=== PATIENT | female | born 1940 | race Caucasian/White ===

== ENCOUNTER 2018-06-17 21:26 | Inpatient (IN) | payer OTHER ==
--- OUTSIDE RECORDS SUMMARY | 2018-06-17 21:28 | XMS REPORT | Clinical Summary ---
:1940 Author Organization [facility] Address [address] [place] [address] Phone Care Team Providers Name Role Phone Unavailable Primary Care Provider Unavailable Allergies Active Allergy Reactions Severity Noted Date Comments Codeine 05/29/2017 Can't recall reaction. Metronidazole Nausea And Vomiting 05/29/2017 headache Current Medications Prescription Sig. Disp. Refills Start Date End Date Status sucralfate (CARAFATE) 1 Take 1 g by mouth 4 Active gram tablet (four) times daily. aspirin 325 MG EC tablet Take 325 mg by Active mouth daily. promethazine (PHENERGAN) Take 12.5 mg by Active 12.5 MG tablet mouth every 6 (six) hours as needed for Nausea. ondansetron (ZOFRAN) 4 MG Take 4 mg by mouth Active tablet 2 (two) times daily as needed for Nausea. pravastatin (PRAVACHOL) Take 20 mg by mouth Active 20 MG tablet daily. levothyroxine (SYNTHROID, Take 50 mcg by Active LEVOTHROID) 50 MCG tablet mouth Every morning on an empty stomach. metoprolol (TOPROL-XL) 25 Take 25 mg by mouth Active MG 24 hr tablet daily. OMEPRAZOLE ORAL Take 1 tablet by Active mouth daily . Active Problems Not on file Social History Tobacco Use Types Packs/Day Years Used Date Former Smoker 0.25 9 Quit: 1973 Alcohol Use Drinks/Week oz/Week Comments No Sex Assigned at Date Recorded Not on file Last Filed Vital Signs Not on file Plan of Treatment Not on file Results Not on fileafter 06/16/2017
--- OUTSIDE RECORDS SUMMARY | 2018-06-17 21:28 | XMS REPORT ---
:1940 [facility] Address [address] [place] [address] [address] [place] [address] Care Team Providers Name Role Phone Unavailable Unavailable Unavailable Problems This patient has no known problems. Allergies, Adverse Reactions, Alerts This patient has no known allergies or adverse reactions. Medications This patient has no known medications. Results Test Description Test Time Test Comments Text Results Atomic Results Result Comments [place], ERCP 2017-07-05 14:41:00 Reason for exam:->recurrent Addendum BeginsREPORT ruq pain,isolated right STATUS:A PATIENT ID: biliary system [id number] Addendum Fluoroscopy time: 2.4 minutes Number of exposures performed: 8 Radiation dose (Ka,r): 17.4 mGy Signed: Joe Hidalgo Verified Date/Time: 07/05/2017 14:41:02 Reading Location: [facility] Diagnostic Imaging Reading Room [place] [id number] EndsAddendum BeginsREPORT STATUS:A Addendum Fluoroscopy time: 2.4 minutes Number of exposures performed: Eight Radiation dose (Ka,r): 17.4 mGy Signed: Joe Hidalgo Verified Date/Time: 07/05/2017 14:37:54 Reading Location: [facility] Diagnostic Imaging Reading Room [place] [address].Addendum EndsFINAL REPORT ERCP History provided: Recurrent right upper quadrant pain Comparison exam: 2010 Cholecystectomy clips are evident. Retrograde injection opacifies dilated common bile duct which is only partially opacified with contrast, and normal visualized intrahepatic biliary ducts. On the final image, a stent was placed extending from the upper common duct distally. Signed: Joe Hidalgo Verified Date/Time: 06/04/2017 17:18:22 Reading Location: [address] Radiology Reading Room
[2018-06-17] MEDS ORDERED: ONDANSETRON 4 MG/2 ML VIAL ONE (22:31)
[2018-06-17] MEDS ORDERED: MORPHINE 4 MG/ML SYR ONE (22:31)
[2018-06-17 22:55] LABS: Absolute Lymphocytes (CBC) 2.1 K/uL (0.7-4.9); Absolute Monocytes 0.7 K/uL (0.1-1.3); Absolute Neutrophil 12.8 K/uL (1.8-8.0); Basophils % 0.4 % (0-1.3); Eosinophils % 0.6 % (0-4.4); Hematocrit 36.3 % (36.0-45.0); MCH 30.2 pg (27.0-35.0); MCV 90.3 fL (80-100); MPV 7.5 fL (7.6-11.3); Monocytes % 4.7 % (3.3-12.3); RBC Red Blood Cell Count 4.02 M/uL (3.86-4.86)
[2018-06-17 23:14] LABS: CKMB Creatine Kinase MB 3.5 ng/mL (0.3-3.6)
[2018-06-17 23:27] LABS: Albumin 4.2 g/dL (3.4-5.0); Bilirubin Direct 0.3 mg/dL (0-0.2); Bilirubin Total 0.4 mg/dL (0.2-1.0); Potassium 3.4 mmol/L (3.5-5.1); Protein, Total 8.5 g/dL (6.4-8.2)
[2018-06-17 23:31] LABS: Urine Blood NEGATIVE (NEG); Urine Glucose NEGATIVE (NEG); Urine Protein NEGATIVE (NEG); Urine Specific Gravity 1.025 (1.005-1.030); Urine pH 5.5 (5.0-7.0)
[2018-06-17 23:37] LABS: Urine Bacteria <20 /HPF (<20); Urine Culture Reflex Order NOT NEEDED; Urine RBC NONE SEEN /HPF (NONE SEEN)
--- NOTE | 2018-06-18 00:37 | EDPHYS ---
Physician Documentation [facility] Name: Yoly Howard Age: 78 yrs Sex: Female : 1940 Arrival Date: 06/17/2018 Time: 21:27 Bed 17 Private MD: Alyssa Merritt C ED Physician Ras Howell HPI: 06/18 01:17 This 78 yrs old Female presents to ER via Ambulatory with complaints of tw4 Abdominal Pain, Shoulder Pain. 01:17 The patient presents with abdominal pain in the upper abdomen. Onset: The tw4 symptoms/episode began/occurred yesterday. The symptoms radiate to the right shoulder. Associated signs and symptoms: Pertinent positives: nausea and vomiting. The symptoms are described as dull. Modifying factors: The symptoms are alleviated by nothing, the symptoms are aggravated by nothing. Severity of pain: At its worst the pain was moderate in the emergency department the pain is unchanged. The patient has not experienced similar symptoms in the past. Historical: - Allergies: : Codeine; bs1 - Home Meds: 06/17 21:52 Norvasc Oral [Active]; bs1 - PMHx: 21:52 High Cholesterol; Hypertension; abdominal pain; nausea; bs1 - PSHx: 21:52 Tubal ligation; Cholecystectomy; bs1 - Immunization history:: Adult Immunizations up to date. - Social history:: Smoking status: Patient/guardian denies using tobacco. - Ebola Screening: : Patient negative for fever greater than or equal to 101.5 degrees Fahrenheit, and additional compatible Ebola Virus Disease symptoms Patient denies exposure to infectious person. ROS: 06/18 01:17 Constitutional: Negative for fever, chills, and weight loss, Cardiovascular: Negative tw4 for chest pain, palpitations, and edema, Respiratory: Negative for shortness of breath, cough, wheezing, and pleuritic chest pain. MS/Extremity: Negative for injury and deformity, Skin: Negative for injury, rash, and discoloration, Neuro: Negative for headache, weakness, numbness, tingling, and seizure. Abdomen/GI: Positive for abdominal pain, nausea, Negative for vomiting, diarrhea, constipation, abdominal cramps, abdominal distension, anorexia, dysphagia, hematemesis, black/tarry stool, rectal pain, bowel incontinence. Exam: 01:17 Constitutional: This is a well developed, well nourished patient who is awake, alert, tw4 and in no acute distress. Head/Face: Normocephalic, atraumatic. Chest/axilla: Normal chest wall appearance and motion. Nontender with no deformity. No lesions are appreciated. Cardiovascular: Regular rate and rhythm with a normal S1 and S2. No gallops, murmurs, or rubs. Normal PMI, no JVD. No pulse deficits. Respiratory: Lungs have equal breath sounds bilaterally, clear to auscultation and percussion. No rales, rhonchi or wheezes noted. No increased work of breathing, no retractions or nasal flaring. MS/ Extremity: Pulses equal, no cyanosis. Neurovascular intact. Full, normal range of motion. Neuro: Awake and alert, GCS 15, oriented to person, place, time, and situation. Cranial nerves II-XII grossly intact. Motor strength 5/5 in all extremities. Sensory grossly intact. Cerebellar exam normal. Normal gait. Psych: Awake, alert, with orientation to person, place and time. Behavior, mood, and affect are within normal limits. 01:17 Abdomen/GI: Inspection: abdomen appears normal, Bowel sounds: normal, Palpation: moderate abdominal tenderness, in the epigastric area and right upper quadrant. Vital Signs: 06/17 21:43 BP 175 / 70; Pulse 81; Resp 16; Temp 98.3(O); Pulse Ox 100% on R/A; Weight 48.08 kg; bs1 Height 5 ft. 3 in. (160.02 cm); Pain 10/10; 22:40 BP 159 / 80; Pulse 74; Resp 16 S; Pulse Ox 99% ; bs1 23:30 BP 152 / 61; Pulse 70; Resp 16 S; Pulse Ox 97% on R/A; bs1 06/18 00:15 BP 163 / 67; Pulse 69; Pulse Ox 97% on R/A; bs1 00:30 BP 153 / 68; Pulse 70; Resp 16 S; Pulse Ox 97% on R/A; bs1 01:30 BP 142 / 59; Pulse 73; Resp 16; Pulse Ox 99% on R/A; bs1 02:15 BP 126 / 56; Pulse 70; Resp 16; Temp 98; Pulse Ox 100% on R/A; Pain 5/10; bs1 06/17 21:43 Body Mass Index 18.78 (48.08 kg, 160.02 cm) bs1 MDM: 06/17 21:32 Patient medically screened. 06/18 01:17 Differential diagnosis: cholecystitis, Cholelithiasis, diverticulitis, Peptic Ulcer tw4 Disease, Perf. Duodenal Ulcer, Pyelonephritis, Ureterolithiasis, urinary tract infection. Data reviewed: vital signs, nurses notes. Data interpreted: Pulse oximetry: Interpretation: normal. Counseling: I had a detailed discussion with the patient and/or guardian regarding: the historical points, exam findings, and any diagnostic results supporting the discharge/admit diagnosis. Physician consultation: A Shaina SHANNON was called at 00:50, was contacted at 00:50, regarding admission, to the medical/surgical unit. patient's condition, need to evaluate the patient as soon as possible, and will see patient in inpatient room, would like medications started, broad spectrum antibiotics. Admission orders: after a detailed discussion of the patient's condition and case, the admit orders are written by me. 06/17 21:33 Order name: Amylase, Serum 06/17 21:33 Order name: Basic Metabolic Panel; Complete Time: 23:45 [facility] 06/17 23:46 Interpretation: Normal except: K 3.4; CRE 1.40; BUN 25; GLUC 173; GFR 36. 06/17 21:33 Order name: CBC with Diff; Complete Time: 23:45 [facility] 06/17 23:46 Interpretation: WBC 15.8; MCV 90.3; LYM% 13.0; JENNIFER% 81.3; MPV 7.5; NEUT A 12.8. 06/17 21:33 Order name: Creatinine for Radiology; Complete Time: 23:45 [facility] 06/17 23:47 Interpretation: Normal except: CRE 1.40; GFR 36. 06/17 21:33 Order name: Hepatic Function; Complete Time: 23:45 [facility] 06/17 23:47 Interpretation: Normal except: AST 336; ALT 130; ALK 158; BILID 0.3; TP 8.5; GLOB 4.3; tw4 A/G 1.0. 06/17 21:33 Order name: Lipase; Complete Time: 23:45 4 06/17 23:47 Interpretation: Within normal limits: LIP 220. 06/17 21:33 Order name: Urine Microscopic Only; Complete Time: 23:45 tw4 06/17 21:33 Order name: Amylase Level; Complete Time: 23:45 EDTX 06/17 23:47 Interpretation: Within normal limits: ONEYDA 108. tw4 06/17 22:22 Order name: Abdomen 1 View (KUB) XRAY tw 06/17 22:22 Order name: Ckmb; Complete Time: 23:45 tw 06/17 22:22 Order name: Creatine Phosphokinase; Complete Time: 23:45 tw 06/17 22:22 Order name: Troponin (emerg Dept Use Only); Complete Time: 23:45 tw 06/17 23:00 Order name: Urine Dipstick--Ancillary (enter results); Complete Time: 23:45 ct 06/17 23:47 Interpretation: Normal except: UESTR TRACE. tw 06/17 23:48 Order name: US Abdomen Complete tw 06/17 21:33 Order name: IV Saline Lock; Complete Time: 22:50 tw 06/17 21:33 Order name: Labs collected and sent; Complete Time: 22:50 tw 06/17 21:33 Order name: Urine Dipstick-Ancillary (obtain specimen); Complete Time: 22:50 [facility] 06/17 22:22 Order name: EKG; Complete Time: 22:23 [facility] 06/18 01:17 Order name: CONS Pharmacy Consult [facility] 06/18 01:17 Order name: NPO EDMS Administered Medications: 06/17 22:45 Drug: Zofran 4 mg Route: IVP; Site: right antecubital; bs1 06/18 02:27 Follow up: Response: No adverse reaction bs1 06/17 22:50 Drug: morphine 4 mg Route: IVP; Site: right antecubital; bs1 06/18 02:28 Follow up: Response: No adverse reaction bs1 01:19 Drug: LevaQUIN 500 mg Volume: 100 ml; Route: IVPB; Infused Over: 60 mins; Site: right bs1 antecubital; 02:27 Follow up: IV Status: Completed infusion bs1 01:28 Drug: morphine 2 mg Route: IVP; Site: right antecubital; bs1 02:27 Follow up: Response: No adverse reaction bs1 01:53 Drug: Flagyl 500 mg Volume: 100 ml; Route: IVPB; Rate: 200 ml/hr; Infused Over: 30 bs1 mins; Site: right antecubital; 02:27 Follow up: IV Status: Completed infusion bs1 Disposition: 06/18/18 00:36 Hospitalization ordered by Alyssa Merritt for Observation. Preliminary diagnosis are Nonspecific elevation of levels of transaminase and lactic acid dehydrogenase [LDH], Abdominal tenderness. - Bed requested for Telemetry/MedSurg (observation). - Status is Observation. bs1 - Condition is Stable. - Problem is new. - Symptoms are unchanged. UTI on Admission? No Signatures: Dispatcher [employer] EDJuana Loyd, RN RN cg Leyda Hernandez RN RN bs1 Ras Howell MD MD tw4 Corrections: (The following items were deleted from the chart) 01: 00:36 Hospitalization Ordered by A Shaina SHANNON for Observation. Preliminary diagnosis is cg Nonspecific elevation of levels of transaminase and lactic acid dehydrogenase [LDH]; Abdominal tenderness. Bed requested for Telemetry/MedSurg (observation). Status is Observation. Condition is Stable. Problem is new. Symptoms are unchanged. UTI on Admission? No. tw4 01:06/17 21:52 Allergies: No Known Allergies; bs1 bs1 06/18 02:28 01:21 06/18/2018 00:36 Hospitalization Ordered by A Shaina SHANNON for Observation. bs1 Preliminary diagnosis is Nonspecific elevation of levels of transaminase and lactic acid dehydrogenase [LDH]; Abdominal tenderness. Bed requested for Telemetry/MedSurg (observation). Status is Observation. Condition is Stable. Problem is new. Symptoms are unchanged. UTI on Admission? No. cg
--- NOTE | 2018-06-18 00:37 | ER ---
Nurse's Notes [facility] Name: Yoly Howard Age: 78 yrs Sex: Female : 1940 Arrival Date: 06/17/2018 Time: 21:27 Bed 17 Private MD: Alyssa Mreritt C Diagnosis: Nonspecific elevation of levels of transaminase and lactic acid dehydrogenase [LDH];Abdominal tenderness Presentation: 06/17 21:49 Presenting complaint: Patient states: "My stomach hurts, the pain goes into my back and bs1 shoulder, and I am very nauseated.". Transition of care: patient was not received from another setting of care. Onset of symptoms was June 17, 2018. Risk Assessment: Do you want to hurt yourself or someone else? Patient reports no desire to harm self or others. Initial Sepsis Screen: Does the patient meet any 2 criteria? No. Patient's initial sepsis screen is negative. Does the patient have a suspected source of infection? No. Patient's initial sepsis screen is negative. Care prior to arrival: None. 21:49 Method Of Arrival: Ambulatory bs1 21:49 Acuity: JACLYN 3 bs1 Historical: - Allergies: 06/18 01:22 Codeine; bs1 - Home Meds: 06/17 21:52 Norvasc Oral [Active]; bs1 - PMHx: 21:52 High Cholesterol; Hypertension; abdominal pain; nausea; bs1 - PSHx: 21:52 Tubal ligation; Cholecystectomy; bs1 - Immunization history:: Adult Immunizations up to date. - Social history:: Smoking status: Patient/guardian denies using tobacco. - Ebola Screening: : Patient negative for fever greater than or equal to 101.5 degrees Fahrenheit, and additional compatible Ebola Virus Disease symptoms Patient denies exposure to infectious person. Screenin/22 00:01 Abuse screen: Denies threats or abuse. Denies injuries from another. Nutritional bs1 screening: No deficits noted. Tuberculosis screening: No symptoms or risk factors identified. Fall Risk None identified. Assessment: 06/17 21:35 General: Appears in no apparent distress. uncomfortable, slender, Behavior is bs1 cooperative, anxious. Pain: Complains of pain in right/left upper quadrant. Neuro: Level of Consciousness is awake, alert, obeys commands, Oriented to person, place, time, situation, Appropriate for age. Cardiovascular: Denies chest pain, shortness of breath, Heart tones S1 S2 present Capillary refill < 3 seconds Patient's skin is warm and dry. 21:35 Respiratory: Airway is patent Trachea midline Respiratory effort is even, unlabored, bs1 Respiratory pattern is regular, symmetrical, Breath sounds are clear bilaterally. GI: Abdomen is flat, non-distended, Bowel sounds present X 4 quads. Abdomen is tender to palpation in right upper quadrant and left upper quadrant Reports upper abdominal pain. : No signs and/or symptoms were reported regarding the genitourinary system. EENT: No signs and/or symptoms were reported regarding the EENT system. Derm: Skin is intact. Musculoskeletal: Circulation, motion, and sensation intact. Capillary refill < 3 seconds, Range of motion: intact in all extremities. 22:50 Reassessment: Morphine/zofran given IV. bs1 23:30 Reassessment: Patient appears in no apparent distress at this time. Patient and/or bs1 family updated on plan of care and expected duration. Pain level reassessed. Patient is alert, oriented x 3, equal unlabored respirations, skin warm/dry/pink. Informed patient of pending lab results/POC. 06/18 01:20 Reassessment: patient c/o pain, informed Dr Howell, verbal order for morphine 2mg IV. bs1 01:21 Reassessment: Sania who identified as patient's daughter left her phone number as ao [phone] Cell. Work [phone]. Fortunato Melgoza patient's nice number [phone]. 02:22 Reassessment: Patient appears in no apparent distress at this time. Patient and/or bs1 family updated on plan of care and expected duration. Pain level reassessed. Patient is alert, oriented x 3, equal unlabored respirations, skin warm/dry/pink. Report called to 2nd floor. Patient states feeling better. Patient states symptoms have improved. Vital Signs: 06/17 21:43 BP 175 / 70; Pulse 81; Resp 16; Temp 98.3(O); Pulse Ox 100% on R/A; Weight 48.08 kg; bs1 Height 5 ft. 3 in. (160.02 cm); Pain 10/10; 22:40 BP 159 / 80; Pulse 74; Resp 16 S; Pulse Ox 99% ; bs1 23:30 BP 152 / 61; Pulse 70; Resp 16 S; Pulse Ox 97% on R/A; bs1 06/18 00:15 BP 163 / 67; Pulse 69; Pulse Ox 97% on R/A; bs1 00:30 BP 153 / 68; Pulse 70; Resp 16 S; Pulse Ox 97% on R/A; bs1 01:30 BP 142 / 59; Pulse 73; Resp 16; Pulse Ox 99% on R/A; bs1 02:15 BP 126 / 56; Pulse 70; Resp 16; Temp 98; Pulse Ox 100% on R/A; Pain 5/10; bs1 06/17 21:43 Body Mass Index 18.78 (48.08 kg, 160.02 cm) bs1 ED Course: 06/17 21:27 Patient arrived in ED. es 21:27 Alyssa Merritt MD is Private Physician. es 21:30 Inserted saline lock: 20 gauge in right antecubital area, using aseptic technique. bs1 Blood collected. 21:30 No provider procedures requiring assistance completed. bs1 21:32 Ras Howell MD is Attending Physician. tw4 21:35 Arm band placed on left wrist. bs1 21:48 Leyda Hernandez, PONCHO is Primary Nurse. bs1 21:50 Triage completed. bs1 22:00 Patient has correct armband on for positive identification. Bed in low position. Call bs1 light in reach. Side rails up X 1. Pulse ox on. NIBP on. Warm blanket given. 22:55 X-ray completed. Patient tolerated procedure well. mh1 22:55 Abdomen 1 View (KUB) XRAY In Process Unspecified. EDMS 06/18 00:35 Alyssa Merritt MD is Hospitalizing Provider. tw4 02:21 Patient admitted, IV remains in place. intact. bs1 Administered Medications: 06/17 22:45 Drug: Zofran 4 mg Route: IVP; Site: right antecubital; bs1 06/18 02:27 Follow up: Response: No adverse reaction bs1 06/17 22:50 Drug: morphine 4 mg Route: IVP; Site: right antecubital; bs1 06/18 02:28 Follow up: Response: No adverse reaction bs1 01:19 Drug: LevaQUIN 500 mg Volume: 100 ml; Route: IVPB; Infused Over: 60 mins; Site: right bs1 antecubital; 02:27 Follow up: IV Status: Completed infusion bs1 01:28 Drug: morphine 2 mg Route: IVP; Site: right antecubital; bs1 02:27 Follow up: Response: No adverse reaction bs1 01:53 Drug: Flagyl 500 mg Volume: 100 ml; Route: IVPB; Rate: 200 ml/hr; Infused Over: 30 bs1 mins; Site: right antecubital; 02:27 Follow up: IV Status: Completed infusion bs1 Outcome: 00:36 Decision to Hospitalize by Provider. tw4 02:21 Admitted to Med/surg accompanied by tech, via stretcher, room 230, with chart, Report bs1 called to GÉNESIS Campos 02:21 Condition: stable 02:21 Instructed on the need for admit, Demonstrated understanding of instructions. 02:28 Patient left the ED. bs1 Signatures: Dispatcher [employer] Nadja Broussard Martha 1 Gumaro Anderson, RN Leyda Espinal RN RN bs1 Ras Howell MD MD tw4 Corrections: (The following items were deleted from the chart) 00:41 00:31 BP 163 / 67; Pulse 69bpm; Pulse Ox 97% RA; bs1 bs1 01:22 08 21:52 Allergies: No Known Allergies; bs1 bs1
[2018-06-18] MEDS ORDERED: Levofloxacin500mg IV 0 MG/0 ML BAG IV ONE (01:18)
[2018-06-18] MEDS ORDERED: METRONIDAZOLE 500mg IVPB 0 MG/0 ML BAG IV ONE (01:18)
[2018-06-18] MEDS ORDERED: METRONIDAZOLE 500mg IVPB 500 MG/100 ML BAG IV ONE (01:22)
[2018-06-18] MEDS ORDERED: MORPHINE 4 MG/ML SYR ONE (01:22)
[2018-06-18] MEDS ORDERED: Levofloxacin500mg IV 500 MG/100 ML BAG IV ONE (01:22)
[2018-06-18 02:45] VITALS: BMI 18.8
--- NOTE | 2018-06-18 07:05 | RAD REPORT ---
EXAM DESCRIPTION: RAD - Abdomen 1 View (KUB) - 06/17/2018 10:58 pm CLINICAL HISTORY: Abdominal pain COMPARISON: None. FINDINGS: Bowel gas pattern is non-specific. No obstruction, free air or pneumatosis. No suspicious calcifications. Cholecystectomy clips are seen in the right upper quadrant. Small clip is also in th e left lower pelvis. Disc and bony degenerative changes are present. No acute bone finding. IMPRESSION: Negative KUB examination for acute finding.
--- NOTE | 2018-06-18 08:56 | RAD REPORT ---
EXAM DESCRIPTION: US - Abdomen Exam Complete - 06/18/2018 8:09 am CLINICAL HISTORY: Abdominal pain COMPARISON: CT study March 2017 FINDINGS: Gallbladder is absent. Common bile duct is 10-11 mm with no common duct stone identified. This is not outside of normal range for a post cholecystectomy patient. The liver and spleen show no suspicious findings. There does appear to be pneumobilia, not unexpected if the patient has had a sph incterotomy. The pancreas is normal. Pancreatic duct is upper normal No hydronephrosis or suspicious mass in either kidney. Aorta is normal is size. No ascites or bulky lymphadenopathy. IMPRESSION: Status post cholecystectomy. Prominence of the biliary tree within normal limits and sta ble. No other significant finding. No significant changes from March 2017.
[2018-06-18] MEDS: MORPHINE 2 MG/ML SYR IV PRN ×3 (09:42→20:18)
[2018-06-18] MEDS: METRONIDAZOLE 500mg IVPB 500 MG/100 ML BAG IV SCH ×2 (09:46→16:57)
[2018-06-18] MEDS: D5 0.9 NS 1,000 ML IV SCH ×2 (09:46→18:29)
[2018-06-18 10:05] LABS: Albumin 3.7 g/dL (3.4-5.0); Bilirubin Total 0.7 mg/dL (0.2-1.0); Magnesium 1.9 mg/dL (1.8-2.4); Potassium 3.8 mmol/L (3.5-5.1); Protein, Total 7.5 g/dL (6.4-8.2)
[2018-06-18 10:32] LABS: Absolute Lymphocytes (CBC) 0.7 K/uL (0.7-4.9); Absolute Monocytes 0.7 K/uL (0.1-1.3); Absolute Neutrophil 14.8 K/uL (1.8-8.0); Hematocrit 32.2 % (36.0-45.0); Lymphocytes % 4.2 % (15.3-44.8); MCH 30.6 pg (27.0-35.0); MPV 7.7 fL (7.6-11.3); Monocytes % 4.1 % (3.3-12.3); RBC Red Blood Cell Count 3.66 M/uL (3.86-4.86)
[2018-06-18 11:07] VITALS: O2SAT 97
[2018-06-18] MEDS ORDERED: CEFEPIME/SWI 2gm 2 GM/20 ML SYR IV ONE (11:30)
[2018-06-18 11:43] LABS: Blood Morphology Comment NOT SEEN (NOT SEEN); Platelet Estimate ADEQ; Urine White Blood Cell Casts OK
[2018-06-18] MEDS ORDERED: CEFEPIME 2 GM VIAL IV ONE (12:00)
--- NOTE | 2018-06-18 12:41 | RAD REPORT ---
EXAM DESCRIPTION: MRICholangiogram06/18/2018 11:48 am CLINICAL HISTORY: Abdominal pain COMPARISON: June 18, 2018 ultrasound TECHNIQUE: Magnetic resonance cholangiogram was performed. Source images were reviewed and reconstru cted at 360 degrees rotation. 3D MIP reconstruction was performed FINDINGS: The gallbladder has been removed. Mild prominence of the intra and extrahepatic biliary tree is seen. A filling defect to suggest a sto ne is not visualized. There does not appear to be a stricture. There probably is a air within the maria elena iary tree. The pancreatic duct appears unremarkable. Small pleural effusions are present IMPRESSION: Mild prominence of the biliary tree without visualization of a stone or stricture
[2018-06-18] MEDS: ONDANSETRON 4 MG/2 ML VIAL IV PRN (18:29)
[2018-06-19] MEDS: METRONIDAZOLE 500mg IVPB 500 MG/100 ML BAG IV SCH (00:32)
[2018-06-19] MEDS: MORPHINE 2 MG/ML SYR IV PRN ×2 (00:39→04:11)
[2018-06-19] MEDS: ONDANSETRON 4 MG/2 ML VIAL IV PRN ×2 (00:39→04:10)
[2018-06-19] MEDS ORDERED: Levofloxacin500mg IV 500 MG/100 ML BAG IV SCH ×2 (01:00→12:00)
[2018-06-19] MEDS: D5 0.9 NS 1,000 ML IV SCH ×2 (04:30→13:57)
--- NOTE | 2018-06-19 05:07 | HP ---
Date of Admission: 06/18/2018 Chief Complaint: Abdominal pain. History Of Present Illness: This is a 78-year-old pleasant female patient, who sees Dr. Tang in [place] on a regular basis and had endoscopic workup done by him as well as Dr. Plaza in [facility] on for recurrent cholangitis type of problem. So far no definite etiology was found, and the patient has this problem off and on, and a lot of time she is able to avoid hospital admission by taking ora l antibiotics that her GI physician prescribes, which is usually Cipro and Flagyl. Yesterday, she st arted to have sudden onset of right upper quadrant abdominal pain and this was so intense that she ca me into emergency room. diarrhea. After she was evaluated in the ER, she was admitted to the hospital. Allergies: TO CODEINE. Review of Systems: GI as mentioned above. All other systems reviewed and negative. Medications: List reviewed. Past Medical History: Significant for hypertension, ascending cholangitis, osteoarthritis. Past Surgical History: As mentioned above. Social History: Negative for smoking, alcohol use. Family History: Not pertinent. Physical Examination: Vital Signs: Last vital signs this morning; temperature 98.9, pulse 93, respiratory rate 16, blood p ressure 167/74, oxygen saturation 97%, height 5 feet 3 inches, weight 106 pounds. General: Awake, alert, oriented, not in distress. HEENT: Head atraumatic, normocephalic. Conjunctivae nonerythematous. Sclerae white. Mouth, no thr ush or edema noted. Ears/Nose, no mass, lesion, discharge noted. Neck: Supple. No JVD, lymph nodes, bruit, thyromegaly noted. Lungs: Bilateral good equal air entry. Clear to auscultation. No rhonchi. No rales. Heart: Normal heart sounds, no murmur or gallop. Abdomen: Presence of right upper quadrant tenderness. No rebound tenderness. No guarding. No rigi dity. No hepatosplenomegaly. No bruit. Bowel sounds normoactive. Extremities: No leg edema. No calf tenderness. Skin: No rash, ulcer, cellulitis. Lymphatics: No lymph node enlargement in neck, supraclavicular, infraclavicular region. Neuro: No focal neurological deficit. Chest: Unremarkable. External Genitalia: Deferred. Rectal: Deferred. Laboratory Data: Yesterday, white count 15.8, hemoglobin 12.1, platelets 268. This morning, white c ount 16.2, hemoglobin 11.2, platelets 244. Yesterday, sodium 137, potassium 3.4, chloride 104, bicar b 29, BUN 25, creatinine 1.40, glucose 173, total bilirubin 0.4, direct bilirubin 0.3, SGOT 336, SGPT 130, alkaline phosphatase 158, lipase 220. This morning, lipase 109, SGOT 640, SGPT 357, alkaline p hosphatase 142, total bilirubin 0.7, sodium 138, potassium 3.8, chloride 104, bicarb 26, BUN 20, crea tinine 1.10, glucose 139. Troponin less than 0.02. Urinalysis negative except trace leukocyte jose ase. Abdominal ultrasound done this morning shows status post cholecystectomy, prominence of biliary tree, no other significant finding. Impression: 1.Acute cholangitis. 2.Hypokalemia. 3.Anemia. 4.Hypertension. Plan: We will admit the patient to hospital for further evaluation and management of this problem. The patient is appropriate for inpatient and is expected to spend 2 midnights in hospital. We will g o ahead and keep her n.p.o., give her IV fluid, IV antibiotics, pain medications per order, SCD was o rdered for DVT prophylaxis, GI consultation was ordered from Dr. Oro, and home medications will be continued per order. I will see her tomorrow for followup. Details and plan of treatment discussed with her. We will repeat blood work tomorrow. ELI/MODL Voice ID: [id number]
[2018-06-19 06:16] LABS: Absolute Monocytes 0.8 K/uL (0.1-1.3); Absolute Neutrophil 11.5 K/uL (1.8-8.0); Basophils % 0.2 % (0-1.3); Eosinophils % 0.3 % (0-4.4); Hematocrit 32.5 % (36.0-45.0); Lymphocytes % 13.9 % (15.3-44.8); MCH 31.1 pg (27.0-35.0); MCV 88.3 fL (80-100); MPV 7.7 fL (7.6-11.3); Monocytes % 5.7 % (3.3-12.3); RBC Red Blood Cell Count 3.68 M/uL (3.86-4.86)
[2018-06-19 06:49] LABS: Albumin 3.7 g/dL (3.4-5.0); Bilirubin Total 0.6 mg/dL (0.2-1.0); Magnesium 2.2 mg/dL (1.8-2.4); Potassium 3.2 mmol/L (3.5-5.1); Protein, Total 7.8 g/dL (6.4-8.2)
[2018-06-19] MEDS: PANTOPRAZOLE 40MG TABLET PO SCH ×2 (09:00→09:17)
[2018-06-19] MEDS: AMLODIPINE 5 MG TAB PO SCH ×2 (09:00→09:16)
[2018-06-19] MEDS: LEVOTHYROXINE SOD 0.05 MG TABLET PO SCH ×2 (09:00→09:17)
[2018-06-19] MEDS ORDERED: CEFEPIME 2 GM VIAL IV SCH (09:00)
[2018-06-19] MEDS ORDERED: CEFEPIME/SWI 2gm 2 GM/20 ML SYR IV SCH (09:00)
[2018-06-19] MEDS: METOPROLOL XL 25 MG TAB PO SCH ×2 (09:00→09:17)
[2018-06-19] MEDS ORDERED: ENOXAPARIN 30 MG/0.3 ML SQ SCH (09:00)
[2018-06-19] MEDS: PROMETHAZINE 25 MG/ML VIAL IV PRN ×2 (09:15→18:23)
[2018-06-19] MEDS: KCL 20 MEQ/100 mL IVPB 20 MEQ/100 ML BAG IV SCH ×2 (09:16→11:24)
--- NOTE | 2018-06-19 09:35 | RAD REPORT ---
EXAM DESCRIPTION: RAD - Chest Single View - 06/19/2018 8:20 am CLINICAL HISTORY: nausea, epigastric pain Chest pain. COMPARISON: Abdomen 1 View (KUB) dated 06/17/2018; Chest Pa And Lat (2 Views) dated 04/23/2017; CHEST PA AND LAT 2 VIEW dated 01/16/2016; CHEST PA AND LAT 2 VIEW dated 07/23/2011 FINDINGS: Portable technique limits examination quality. The lungs are mildly emphysematous but clear. The heart is normal in size. No displaced fractures. IMPRESSION: No acute intrathoracic process suspected. Mild COPD.
[2018-06-19] MEDS ORDERED: NA CHLORIDE 0.9% 250 ML ONE (09:42)
[2018-06-19 10:04] LABS: Urine Appearance CLEAR; Urine Bilirubin NEGATIVE (NEG); Urine Blood NEGATIVE (NEG); Urine Color YELLOW; Urine Glucose NEGATIVE (NEG); Urine Microscopic Reflex NO UMIC; Urine Protein NEGATIVE (NEG); Urine Specific Gravity 1.015 (1.005-1.030); Urine Urobilinogen 0.2 mg/dL (0.2-1.0); Urine pH 5.5 (5.0-7.0)
[2018-06-19 17:26] VITALS: BP 165/74; TEMP 98.9
--- NOTE | 2018-06-20 06:28 | DS ---
Date of Discharge: 06/19/2018 Disposition: Discharged to go to [facility]. Physical Examination: HEENT: Unremarkable. Lungs: Clear to auscultation. Heart: Sounds normal. Abdomen: Soft. Bowel sounds normal. Presence of right upper quadrant tenderness. No rebound tende rness. Extremity: No leg edema. Laboratory Data: Upon admission, white count was 15.8, hemoglobin 12.1, and platelets 268. Today, w meredith count 14.3, hemoglobin 11.4, and platelets 254. Upon admission, sodium 137, potassium 3.4, chlo ride 104, bicarb 29, BUN 25, creatinine 1.40, and glucose 173. SGOT 336, SGPT 130, alkaline phosphat ase 158, and total bilirubin 0.4. Today, SGOT 474, SGPT 271. Yesterday, SGOT was 640, SGPT 357. To day, potassium was 3.2, BUN 14, creatinine 1.20. Lipase was 109 yesterday. Hospital Course: This is a 78-year-old female patient, who was admitted to the hospital with right u pper quadrant abdominal pain, nausea, and vomiting. Please see dictated H and P for more information . After the patient came into the emergency room, she was evaluated and admitted to the hospital. H er abdominal ultrasound was done yesterday, which was unremarkable for any acute changes. MRCP was d one, which was also negative for any acute changes, no evidence of any obstruction noted. The patien t has history of cholangitis from time to time and in the past, she had endoscopy workup including ER CP done by Dr. Plaza and the patient reported that her last ERCP was done by him sometime last year . After she was admitted to the hospital, she was initially kept n.p.o., IV fluid was given, IV pain medication and nausea medication were given, and IV antibiotics were started. Her condition did not improve as expected. This morning when I saw her, she reported that she feels little bit better com pared to the time of admission, but still was having right upper quadrant pain and nausea and reporte d that nausea medication, Zofran, was not helping. I was requesting Phenergan, which was ordered for her. Her antibiotics were changed from Levaquin and metronidazole to cefepime today. Dr. Preethi snell GI was consulted, who evaluated her today and recommended for us to transfer her to [place] under care of Dr. Plaza for higher level of care and once arrangements completed, the patient was transfe rred to [place] in stable condition via ground ambulance. Final Diagnoses: 1.Acute cholangitis. 2.Hypokalemia. 3.Hypertension. ELI/MODL Voice ID: [id number] Report ID: [id number]
[2018-06-21 03:55] LABS: HBsAG Nonreactive (Nonreactive); Hepatitis A IgM Antibody Nonreactive
--- NOTE | 2018-06-27 23:42 | CON ---
Date of Consultation: 06/19/2018 Reason For Consultation: Elevated liver chemistries, right lower quadrant pain with bloating. History Of Present Illness: The patient is a 78-year-old white female with history of biliary compli cations in past. The patient has been seen by Dr. Penn after seeing Dr. Goel. The patient has had recurrent cholangitis with at least [address] Goel due to bile duct stricture and biliar y stasis with cholangitis. Last ERCP was performed May 2017. The patient has had nausea, vomitin g, fevers, chills. No night sweats. Increase in liver chemistries with pain in the right upper quad rant, right lower quadrant, left upper quadrant, and increased bloating. She does report exposure to 2-year-old and 4-year-old, and her family thinks her grand kid after eating a pot pie that night and hours later abdominal pain began. The kids were at dinner where the chicken pot pie was served as w ell. It is unclear if kids were sick, though they possibly may have been. Of note, the patient has had 3 ERCPs over the past couple of years, last in May 2017 in [place], [place], seen by Dr. Trae udbon for this recurrent biliary stricture stasis and ascending cholangitis, appears by chart review and by talking to the patient and daughter. Daughter says that the patient is in the same presentation t hat she has currently when she has to have the biliary dilatations. Past Medical History: Significant for recurrent biliary strictures, ascending cholangitis that is re current, biliary stasis, hypertension, osteoarthritis. Social History: She is a . One daughter with hypothyroidism and polycystic ovary disease. She denies any tobacco or alcohol. Family History: Father of leukemia. Mother of strokes. Medications: See list. Allergies: CODEINE. Review of Systems: The patient has right lower quadrant and left lower quadrant pain with bloating, fevers, chills, naus ea, vomiting. She denies any melena, hematochezia, hematemesis, coffee-grounds emesis, hematuria, dy suria, polydipsia, diffuse chest pain, shortness of breath, seizures, or syncope, worsening paresthes ias, muscle aches, joint aches, backaches, depression, anxiety. Physical Examination: Vital Signs: The patient is 5 feet, 306 pounds. BMI of 19 kg/meter squared. Temperature 97.9 degre es Fahrenheit, pulse 80, respirations 18, blood pressure 150/67, O2 saturation 97%. General: Elderly female, lying in bed, in no acute distress. HEENT: Normocephalic, atraumatic. Anicteric. Pupils equal, round, and reactive to light. Extraocu lar movements are intact. Oropharynx is clear. Neck: Supple, no masses. Respirations: Clear to auscultation bilaterally. Cardiac: Regular rate and rhythm. No gallops or rubs. Abdomen: Positive bowel sounds. Soft. Nondistended. Some mild right upper quadrant and right lowe r quadrant tenderness. No peritoneal or Kiser sign. No rebound. Extremities: No clubbing, cyanosis, or edema. 2+ pulses. Neuro: Alert and oriented x3, grossly nonfocal, 5/5 motor sensation light touch. Laboratory Data: The patient's white count of 14.3, down from 16.2; hemoglobin of 11.4; hematocrit 3 2.5; MCV of 88; platelet count 254; polys of 80%; lymphocytes 14%; monocytes 6%. The patient has a s odium 141; potassium 3.2; chloride 107; bicarb 23; BUN of 14; creatinine of 1.2; glucose 131; calcium 9.0; magnesium 2.2; total bilirubin of 0.6; AST of 474, down from 640 yesterday; ALT of 271, down fr om 357 yesterday, alkaline phosphatase 150, up from 142 yesterday. CK-MB 3.5, troponin I of less corinna n 0.02. Total protein 7.8, albumin 3.7, globulin 4.1, lipase of 109, normal. UA, 1+ ketones. All e lse negative. Ultrasound of abdomen revealed cholecystectomy changes, prominence of biliary tree within normal limi ts and stable. Common bile duct about 10 to 11 mm with no stone identified. There does appear some . Pancreas and liver appeared normal. MRCP showed mild prominence of biliary tree without evidence of stone or strictures. Cholecystectomy changes noted. Impression: Probable recurrent biliary stasis from recurrent biliary strictures in this patient who has had at least 3 ERCPs in the past 2 years, last done in May of [address] Goel in [place], [place]. She also has exposure to a family eating event with a chicken pot pie, night before her symp toms began, with 2-year-old and 4-year-old present as well. She also has fevers, chills, nausea, vom iting. Most likely there is recurrent ascending cholangitis due to recurrent biliary strictures in t his patient, daughter and other family member, and there appears to be niece present today at the [facility] e presentation. She is given references when had biliary stricture that the need to be dilated. Recommendations: 1.Double coverage for gram-negative bacteria with 2 antibiotics. 2.The patient is [facility] Go[facility] for repeat ERCP and possible [employer]. There are recurrent biliary strictures and recurrent ascending cholangitis with elevated liver chemistries and sepsis with white count up to 14.2 now. 3.Continue IV fluids and IV antibiotics. 4.Diet. Clear liquids and full liquids and heart healthy once biliary disorder addressed. UYEN/MARY Voice ID: [id number] Report ID: [id number]
== END 2018-06-19 18:30 | disposition short-term general hospital (02) | DRG 446 ==
LOC: ER 21:26 → ERHOLD 06-18 01:39 → 2ND 06-18 02:16 → OBSVTOIN 06-19 11:49
PROVIDERS: ADMIT Internal Medicine; ATTEND Internal Medicine
DX: K83.0 Cholangitis (principal); E87.6 Hypokalemia; I10 Essential (primary) hypertension; D64.9 Anemia, unspecified
CPT/HCPCS: 36415; 71045; 74018; 74181; 76700; 80048; 80053; 80074; 80076; 81003; 81015; 82150; 82550; 82553; 83690; 83735; 84132; 84484; 85025; 87040; 96365; 96375; 99285; G0378; J0692; J1650; J2270; J2405; J2550

== ENCOUNTER 2018-12-29 23:33 | Emergency (ER) | payer OTHER ==
--- OUTSIDE RECORDS SUMMARY | 2018-12-29 23:37 | XMS REPORT | Clinical Summary ---
:1940 Author Organization [facility] Address [address] [place] [address] Care Team Providers Name Role Phone Jayro Merritt MD Primary Care Provider Allergies Active Allergy Reactions Severity Noted Date Comments Codeine 05/29/2017 Can't recall reaction. Metronidazole Nausea And Vomiting 05/29/2017 headache Levofloxacin Nausea And Vomiting, Other 06/23/2018 headache (See Comments) Medications Medication Sig Dispensed Refills Start Date End Date Status sucralfate Take 1 g by 0 Active (CARAFATE) 1 gram mouth 4 (four) tablet times daily. aspirin 325 MG EC Take 325 mg by 0 Active tablet mouth daily. ondansetron Take 4 mg by 0 Active (ZOFRAN) 4 MG mouth 2 (two) tablet times daily as needed for Nausea. levothyroxine Take 50 mcg by 0 Active (SYNTHROID, mouth Every LEVOTHROID) 50 MCG morning on an tablet empty stomach 10/29. metoprolol Take 25 mg by 0 Active (TOPROL-XL) 25 MG mouth daily. 24 hr tablet OMEPRAZOLE ORAL Take 1 tablet by 0 Active mouth daily . calcium Take 600 mg by 0 Active carbonate/vitamin mouth. D3 (CALTRATE WITH VITAMIN D3 ORAL) amLODIPine Take 5 mg by 0 Active (NORVASC) 5 MG mouth daily. tablet promethazine Take 1 tablet 30 tablet 0 06/21/2018 Active (PHENERGAN) 12.5 MG (12.5 mg total) tablet by mouth every 6 (six) hours as needed for Nausea. simvastatin (ZOCOR) Take 1 tablet 30 tablet 0 06/25/2018 Active 20 MG tablet (20 mg total) by mouth nightly Either you take pravastatin or simvastatin for cholesterol but not both. promethazine Take 12.5 mg by 0 Discontinued (PHENERGAN) 12.5 MG mouth every 6 8 tablet (six) hours as needed for Nausea. pravastatin Take 20 mg by 0 Discontinued (PRAVACHOL) 20 MG mouth daily. 8 tablet simvastatin (ZOCOR) Take 20 mg by 0 Discontinued 20 MG tablet mouth nightly. 8 levoFLOXacin Take 1 tablet 7 tablet 0 06/22/2018 Discontinued (LEVAQUIN) 500 MG (500 mg total) 8 tablet by mouth daily for 7 days. traMADol (ULTRAM) Take 1 tablet 30 tablet 0 06/21/2018 50 mg tablet (50 mg total) by 8 mouth every 6 (six) hours as needed for Pain for up to 10 days. Max Daily Amount: 200 mg pravastatin Take 1 tablet 30 tablet 0 06/25/2018 Discontinued (PRAVACHOL) 20 MG (20 mg total) by 8 tablet mouth daily Either you take pravastatin or simvastatin for cholesterol but not both. amoxicillin-clavula Take 1 tablet by 18 tablet 0 06/25/2018 jamel (AUGMENTIN) mouth 2 (two) 8 875-125 mg per times daily for tablet 9 days. 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/20/2018 RUQ abdominal pain 06/19/2018 Essential hypertension 06/19/2018 Abnormal liver enzymes 06/19/2018 Encounters Date Type Specialty Care Team Description 06/23/2018 - Emergency Oncology Nancy, Nausea and vomiting, intractability of vomiting not specified, unspecified vomiting type (Primary Dx) ; 06/25/2018 MD Damon Epigastric pain; Jay, Acute kidney injury (HCC); Heidy Milvia, Abnormal liver enzymes; Essential hypertension; Wilmer Riggs, Hypothyroidism, unspecified type 06/20/2018 Orders Only General Internal Medicine 06/19/2018 - Hospital Encounter General Internal Gadicheraugustine, Abnormal liver enzymes; 06/21/2018 Medicine Precious Essential hypertension; MD Laney RUQ abdominal pain; Shamsee, Dilated cbd, acquired Mookie-MD Emily Carr Allison P., MD after 12/28/2017 Social History Tobacco Use Types Packs/Day Years Used Date Former Smoker 0.25 9 Quit: 1973 Smokeless Tobacco: Never Used Alcohol Use Drinks/Week oz/Week Comments No Sex Assigned at Date Recorded Not on file Job Start Date Occupation Industry Not on file Not on file Not on file Travel History Travel Start Travel End No recent travel history available. Last Filed Vital Signs Vital Sign Reading Time Taken Blood Pressure 160/68 06/25/2018 11:00 AM CDT Pulse 70 06/25/2018 11:00 AM CDT Temperature 36.1 C (97 F) 06/25/2018 11:00 AM CDT Respiratory Rate 18 06/25/2018 11:00 AM CDT Oxygen Saturation 100% 06/25/2018 11:00 AM CDT Inhaled Oxygen Concentration - - Weight 45.5 kg (100 lb 6.4 oz) 06/23/2018 11:56 PM CDT Height 160 cm (5' 2.99") 06/23/2018 11:56 PM CDT Body Mass Index 17.79 06/23/2018 11:56 PM CDT Plan of Treatment Not on file Procedures Procedure Name Priority Date/Time Associated Comments Diagnosis CBC W/PLT COUNT & AUTO Routine 06/25/2018 4:42 Results for this DIFFERENTIAL AM CDT procedure are in the results section. HEPATIC FUNCTION PANEL Routine 06/25/2018 4:42 Results for this AM CDT procedure are in the results section. CBC W/PLT COUNT & AUTO Routine 06/25/2018 4:42 Results for this DIFFERENTIAL AM CDT procedure are in the results section. BASIC METABOLIC PANEL Routine 06/25/2018 4:42 Results for this (7) AM CDT procedure are in the results section. HEPATIC FUNCTION PANEL Routine 06/24/2018 10:07 Results for this AM CDT procedure are in the results section. RHYTHM STRIP - SCAN 06/24/2018 7:50 AM CDT CBC W/PLT COUNT & AUTO Routine 06/24/2018 4:25 Results for this DIFFERENTIAL AM CDT procedure are in the results section. CBC W/PLT COUNT & AUTO Routine 06/24/2018 4:25 Results for this DIFFERENTIAL AM CDT procedure are in the results section. BASIC METABOLIC PANEL Routine 06/24/2018 4:25 Results for this (7) AM CDT procedure are in the results section. ED ECG INTERPRETATION Routine 06/23/2018 9:57 Results for this PM CDT procedure are in the results section. POCT-LACTIC ACID, Routine 06/23/2018 9:37 Results for this VENOUS PM CDT procedure are in the results section. BLOOD CULTURE STAT 06/23/2018 9:34 Results for this PM CDT procedure are in the results section. BLOOD CULTURE STAT 06/23/2018 9:30 Results for this PM CDT procedure are in the results section. URINALYSIS W/ STAT 06/23/2018 9:22 Results for this MICROSCOPIC PM CDT procedure are in the results section. CBC W/PLT COUNT & AUTO STAT 06/23/2018 7:48 Results for this DIFFERENTIAL PM CDT procedure are in the results section. TROPONIN I STAT 06/23/2018 7:48 Results for this PM CDT procedure are in the results section. CBC W/PLT COUNT & AUTO STAT 06/23/2018 7:48 Results for this DIFFERENTIAL PM CDT procedure are in the results section. LIPASE STAT 06/23/2018 7:48 Results for this PM CDT procedure are in the results section. AMYLASE STAT 06/23/2018 7:48 Results for this PM CDT procedure are in the results section. HEPATIC FUNCTION PANEL STAT 06/23/2018 7:48 Results for this PM CDT procedure are in the results section. BASIC METABOLIC PANEL STAT 06/23/2018 7:48 Results for this (7) PM CDT procedure are in the results section. ECG 12-LEAD STAT 06/23/2018 7:43 Results for this PM CDT procedure are in the results section. CBC W/PLT COUNT & AUTO Routine 06/21/2018 5:20 Results for this DIFFERENTIAL AM CDT procedure are in the results section. HEPATIC FUNCTION PANEL Routine 06/21/2018 5:20 Results for this AM CDT procedure are in the results section. MAGNESIUM Routine 06/21/2018 5:20 Results for this AM CDT procedure are in the results section. PHOSPHORUS Routine 06/21/2018 5:20 Results for this AM CDT procedure are in the results section. BASIC METABOLIC PANEL Routine 06/21/2018 5:20 Results for this (7) AM CDT procedure are in the results section. CBC W/PLT COUNT & AUTO Routine 06/21/2018 5:20 Results for this DIFFERENTIAL AM CDT procedure are in the results section. TROPONIN I Routine 06/20/2018 12:09 Results for this PM CDT procedure are in the results section. ECG 12-LEAD Routine 06/20/2018 8:21 AM CDT Procedure Note - Interface, External Ris In - 06/20/2018 8:26 AM CDT Ventricular Rate 70 BPM Atrial Rate 70 BPM P-R Interval 174 ms QRS Duration 92 ms Q-T Interval 440 ms QTC Calculation(Bazett) 475 ms P Jasper 69 degrees R Jasper 41 degrees T Jasper 69 degrees Normal sinus rhythm Low voltage QRS Nonspecific T wave abnormality Prolonged QT Abnormal ECG When compared with ECG of 20-JUN-2018 08:20, Premature supraventricular complexes are no longer Present ECG 12-LEAD Routine 06/20/2018 8:21 AM CDT ECG 12-LEAD Routine 06/20/2018 8:20 AM CDT ECG 12-LEAD Routine 06/20/2018 8:20 AM CDT Procedure Note - Interface, External Ris In - 06/20/2018 8:26 AM CDT Ventricular Rate 70 BPM Atrial Rate 70 BPM P-R Interval 172 ms QRS Duration 94 ms Q-T Interval 430 ms QTC Calculation(Bazett) 464 ms P Jasper 72 degrees R Jasper 43 degrees T Jasper 60 degrees Sinus rhythm with Premature supraventricular complexes Low voltage QRS Nonspecific T wave abnormality Abnormal ECG When compared with ECG of 26-JUL-2011 10:51, Sinus rhythm has replaced Junctional rhythm Nonspecific T wave abnormality no longer evident in Inferior leads Nonspecific T wave abnormality has replaced inverted T waves in Anterior leads CBC W/PLT COUNT & AUTO Routine 06/20/2018 4:50 AM CDT Results for this DIFFERENTIAL procedure are in the results section. LIPASE Routine 06/20/2018 4:50 AM CDT AMYLASE Routine 06/20/2018 4:50 AM CDT C-REACTIVE PROTEIN Routine 06/20/2018 4:50 AM CDT TSH/FREE T4 IF INDICATED Routine 06/20/2018 4:50 AM CDT CREATINE KINASE (CK), TOTAL Routine 06/20/2018 4:50 AM CDT Results for this AND MB procedure are in the results section. TROPONIN I Routine 06/20/2018 4:50 AM CDT PT/APTT Routine 06/20/2018 4:50 AM CDT HEMOGLOBIN A1C Routine 06/20/2018 4:50 AM CDT HEPATIC FUNCTION PANEL Routine 06/20/2018 4:50 AM CDT LIPID PANEL Routine 06/20/2018 4:50 AM CDT MAGNESIUM Routine 06/20/2018 4:50 AM CDT PHOSPHORUS Routine 06/20/2018 4:50 AM CDT BASIC METABOLIC PANEL (7) Routine 06/20/2018 4:50 AM CDT CBC W/PLT COUNT & AUTO Routine 06/20/2018 4:50 AM CDT Results for this DIFFERENTIAL procedure are in the results section. after 12/28/2017 Results CBC with platelet count + automated diff (06/25/2018 4:42 AM CDT)Only the most recent of5 resultswithin the time period is included. WBC 8.0 3.5 - 10.5 K/L [facility] RBC 3.37 (L) 3.93 - 5.22 M/L [facility] Hemoglobin 10.1 (L) 11.2 - 15.7 GM/DL [facility] Hematocrit 30.4 (L) 34.1 - 44.9 % [facility] MCV 90.2 79.4 - 94.8 fL [facility] MCH 30.0 25.6 - 32.2 pg [facility] MCHC 33.2 32.2 - 35.5 GM/DL [facility] RDW 13.1 11.7 - 14.4 % [facility] Platelets 215 150 - 450 K/CU MM [facility] MPV 9.2 (L) 9.4 - 12.3 fL [facility] nRBC 0 0 - 0 /100 WBC [facility] % Neutros 43 % [facility] % Lymphs 48 % [facility] % Monos 7 % [facility] % Eos 2 % [facility] % Baso 0 % [facility] # Neutros 3.41 1.56 - 6.13 K/L [facility] # Lymphs 3.82 (H) 1.18 - 3.74 K/L [facility] # Monos 0.52 (H) 0.24 - 0.36 K/L [facility] # Eos 0.16 0.04 - 0.36 K/L [facility] # Baso 0.03 0.01 - 0.08 K/L [facility] Immature Granulocytes-Relative 1 0 - 1 % [facility] Specimen Blood - Arm, Left Performing Organization Address City/State/Zipcode Phone Number [facility] [address] [place] [address] CENTER Hepatic function panel (06/25/2018 4:42 AM CDT)Only the most recent of5 resultswithin the time period is included. Protein, Total 6.3 6.0 - 8.3 gm/dL [facility] Albumin 3.4 (L) 3.5 - 5.0 g/dL [facility] Total Bilirubin 0.5 0.2 - 1.2 mg/dL [facility] Bilirubin, Direct 0.3 0.1 - 0.5 mg/dL [facility] Alkaline Phosphatase 164 (H) 40 - 150 U/L [facility] AST 170 (H) 5 - 34 U/L [facility] ALT 74 (H) 6 - 55 U/L [facility] Specimen Blood - Arm, Left Performing Organization Address [facility]/Zipcode Phone Number [facility] [address] [place] [address] [place] Basic metabolic panel (06/25/2018 4:42 AM CDT)Only the most recent of5 resultswithin the time period is included. Sodium 141 136 - 145 meq/L [facility] Potassium 3.9 3.5 - 5.1 meq/L [facility] Chloride 110 (H) 98 - 107 meq/L [facility] CO2 25 22 - 29 meq/L [facility] BUN 6 (L) 7 - 21 mg/dL [facility] Creatinine 0.84 0.57 - 1.25 mg/dL [facility] Glucose 122 (H) 70 - 105 mg/dL [facility] Calcium 8.8 8.4 - 10.2 mg/dL [facility] EGFR 65Comment: ESTIMATED GFR IS mL/min/1.73 sq m [facility] NOT ACCURATE CREATININE [facility] CLEARANCE IN PREDICTING GLOMERULAR FILTRATION RATE. ESTIMATED GFR IS NOT APPLICABLE FOR DIALYSIS PATIENTS. Specimen Blood - Arm, Left Performing Organization Address City/[facility]/Zipcode Phone Number [facility] [address] [place] [address] [place] RHYTHM STRIP - SCAN (06/24/2018 7:50 AM CDT) Narrative Performed At ED ECG Interpretation (06/23/2018 9:57 PM CDT) Narrative Performed At Damon Cruz MD 06/23/20189:57 PM Date/Time: 06/23/2018 9:50 PM Performed by: DAMON CRUZ Authorized by: DAMON CRUZ The ECG was interpreted by ED physician. Rate is normal rate. Heart rate is 80 BPM. Conduction: conduction normal. ST segments normal. T waves normal: Diffuse Twave flattening. Clinical Impression: non-specific ECG POC-Lactic Acid, Venous (06/23/2018 9:37 PM CDT) POC-Lactic Acid, Venous 1.3Comment: TESTED AT 0.9 - 1.7 mmol/L [facility] [address] [place] [id number] Specimen Blood Performing Organization Address [facility] [place] [address] CENTER Blood culture (06/23/2018 9:34 PM CDT)Only the most recent of2 resultswithin the time period is included. Result No growth in 5 days [facility] Specimen Blood - Line, Venous Performing Organization Address [facility] Phone Number [address] [address] [place] Urinalysis w/ Microscopic (06/23/2018 9:22 PM CDT) Color, UA Yellow [facility] Clarity, UA Hazy [facility] Specific [place], UA 1.015 1.001 - 1.035 [facility] pH, UA 5.5 5.0 - 8.0 [facility] Protein, UA 30 mg/dL (A) Negative [facility] Glucose, UA Negative Negative [facility] Ketones, UA 10 mg/dL (A) Negative [facility] Bilirubin, UA Negative Negative [facility] Blood, UA Negative Negative [facility] Nitrite, UA Negative Negative [facility] Leukocytes, UA Moderate (A) Negative [facility] Urobilinogen, UA 0.2 0.2 - 1.0 mg/dL [facility] RBC, UA 17 /HPF [facility] WBC, UA 7 /HPF [facility] Mucus Few [facility] Squam Epithel, UA 4 /HPF [facility] Hyaline Casts, UA 17 /LPF [facility] Specimen Source Urine, Clean Catch [facility] Specimen Urine - Urine, Clean Catch Performing Organization Address City/[facility] Centercode Phone Number [address] [address] C[place] Troponin I (not available at [facility]) (06/23/2018 7:48 PM CDT)Only the most recent of3 resultswithin the time period is included. Troponin I 0.02 0.00 - 0.03 ng/mL [facility] Specimen Blood Narrative Performed At [facility] Troponin I (TnI) levels must be interpreted in the context of the presenting symptoms and the clinical findings. Elevated TnI levels indicate myocardial damage, but are not specific for ischemic heart disease. Elevated TnI levels are seen in patients with other cardiac conditions (including myocarditis and congestive heart failure), and slight TnI elevations occur in patients with other conditions, including sepsis, renal failure, acidosis, acute neurological disease, and persistent tachyarrhythmia. Performing Organization Address City/[facility] Cent[facility] Phone Number [address] [address] C[place] Lipase (06/23/2018 7:48 PM CDT)Only the most recent of2 resultswithin the time period is included. Lipase 56 8 - 78 U/L [facility] Specimen Blood Performing Organization Address City/[facility]/Zipcode Phone Number [address] [address] C[place] Amylase (06/23/2018 7:48 PM CDT)Only the most recent of2 resultswithin the time period is included. Amylase 90 25 - 125 U/L [facility] Specimen Blood Performing Organization Address [facility] Phone Number [address] [address] [place] ECG 12 lead (06/23/2018 7:43 PM CDT)Only the most recent of3 resultswithin the time period is included. Narrative Performed At Ventricular Rate 80 BPM GE MUSE Atrial Rate 80 BPM P-R Interval 160 ms QRS Duration 92 ms Q-T Interval 382 ms QTC Calculation(Bazett) 440 ms P Jasper 75 degrees R Jasper 52 degrees T Jasper 123 degrees Normal sinus rhythm Low voltage QRS ST & T wave abnormality, consider inferolateral ischemia Abnormal ECG When compared with ECG of 20-JUN-2018 08:21, Mild ST depression andT wave inversion now evident in Inferior leads ST depression andT wave inversion now evident in Lateral leads QT has shortened Confirmed by MD TERESO, JUAN ([id number]) on 06/24/2018 6:40:29 AM Procedure Note Interface, External Ris In - 06/24/2018 6:40 AM CDT Ventricular Rate 80 BPM Atrial Rate 80 BPM P-R Interval 160 ms QRS Duration 92 ms Q-T Interval 382 ms QTC Calculation(Bazett) 440 ms P Jasper 75 degrees R Jasper 52 degrees T Jasper 123 degrees Normal sinus rhythm Low voltage QRS ST & T wave abnormality, consider inferolateral ischemia Abnormal ECG When compared with ECG of 20-JUN-2018 08:21, Mild ST depression and T wave inversion now evident in Inferior leads ST depression and T wave inversion now evident in Lateral leads QT has shortened Confirmed by MD RIDER YOCHAI ([id number]) on 06/24/2018 6:40:29 AM Performing Organization Address City/[facility] Cent[facility]ode Phone Number GE MUSE Phosphorus (06/21/2018 5:20 AM CDT)Only the most recent of2 resultswithin the time period is included. Phosphorus 2.6 2.3 - 4.7 mg/dL [facility] Specimen Blood Performing Organization Address [facility] Centercode Phone Number [address] [address] [phone] CENTER Magnesium (06/21/2018 5:20 AM CDT)Only the most recent of2 resultswithin the time period is included. Magnesium 2.0 1.6 - 2.6 mg/dL [facility] Specimen Blood Performing Organization Address City/[facility] Phone Number [address] [address] C[place] TSH/Free T4 If Indicated (06/20/2018 4:50 AM CDT) TSH 3.28 0.35 - 4.94 uIU/mL [facility] Specimen Blood Performing Organization Address [facility] Phone Number [address] [address] [phone] CENTER PT/aPTT (06/20/2018 4:50 AM CDT) Protime 16.3 (H) 11.7 - 14.7 seconds [facility] INR 1.3 <=5.9 [facility] PTT 39.1 (H) 22.5 - 36.0 seconds [facility] Specimen Blood Narrative Performed At [facility] RECOMMENDED COUMADIN/WARFARIN INR THERAPY RANGES STANDARD DOSE: 2.0 - 3.0 Includes: PROPHYLAXIS for venous thrombosis, systemic embolization; TREATMENT for venous thrombosis and/or pulmonary embolus. HIGH RISK: Target INR is 2.5-3.5 for patients with mechanical heart valves. Performing Organization Address [facility] Centercode Phone Number [address] [address] C[place] C-Reactive Protein (06/20/2018 4:50 AM CDT) CRP 3.20 (H) 0.00 - 0.50 mg/dL [facility] Specimen Blood Performing Organization Address [facility] Centercode Phone Number [address] [address] C[place] Hemoglobin A1c (06/20/2018 4:50 AM CDT) Hemoglobin A1C 6.1 4.3 - 6.1 % [facility] Specimen Blood Performing Organization Address City/[facility]/Zipcode Phone Number [address] [address] [place] Creatine Kinase (CK), Total and MB (06/20/2018 4:50 AM CDT) Total CK 189 29 - 200 U/L [facility] CK-MB 3.0 0.0 - 6.6 ng/mL [facility] MB Relative Index 1.6 % [facility] Specimen Blood Narrative Performed At CK-MB Reference Range: [facility] <6.7Normal 6.7-10.0Borderline >10.0 Abnormal Performing Organization Address [facility] Phone Number [address] [address] [place] Lipid panel (06/20/2018 4:50 AM CDT) Triglycerides 64 mg/dL [facility] Cholesterol 95 mg/dL [facility] HDL 46 mg/dL [facility] LDL Calculated 36 mg/dL [facility] Specimen Blood Narrative Performed At [facility] Triglyceride Reference Range: Low Risk <150 [id number] High Risk 200-499 Very High Risk>=500 Cholesterol Reference Range: Low Risk <200 [id number] High Risk>240 HDL Cholesterol Reference Range: Low Risk >=60 High Risk <40 LDL Cholesterol Reference Range: Optimal<100 Near [id number] Very High >=190 Performing Organization Address City/State/Zipcode Phone Number [place] [phone] [place] [address] CENTER after 12/28/2017 Insurance Payer Benefit Plan / Group Subscriber ID Type Phone Address MEDICARE MEDICARE A B xxxxxxxxxx Medicare [facility] GENERIC MEDICARE xxxxxxxxx Med[employer]ap SUPPLEMENT/INDIVIDUAL SUPPLEMENT Advance Directives For more information, please contact:[place] [id number] [place], [place] [phone] Code Status Date Activated Date Inactivated Comments Full Code 06/23/2018 11:35 PM 06/25/2018 2:57 PM This code status was determined by: Patient Full Code 06/19/2018 11:34 PM 06/21/2018 1:34 PM This code status was determined by: Patient
--- OUTSIDE RECORDS SUMMARY | 2018-12-29 23:38 | XMS REPORT ---
:1940 [facility] Thony Mack [address] [place] [id number] Care Team Providers Name Role Phone DAMON KESSLER Unavailable Unavailable RICH BOONE Unavailable Unavailable Problems This patient has no known problems. Allergies, Adverse Reactions, Alerts This patient has no known allergies or adverse reactions. Medications This patient has no known medications. Results Test Description Test Time Test Comments Text Results Atomic Results Result Comments BLOOD CULTURE 2018-06-29 06:00:00 Test Item Value Reference Range Comments CULTURE (BEAKER) (test wksg=9569) No growth in 5 days BLOOD [id number] 06:00:00 Test Item Value Reference Range Comments CULTURE (BEAKER) (test ytsw=7670) No growth in 5 days CBC W/PLT COUNT & AUTO [id number] 05:48:00 Test Item Value Reference Range Comments WHITE BLOOD CELL COUNT (BEAKER) (test hnwr=016) 8.0 K/ L 3.5-10.5 RED BLOOD CELL COUNT (BEAKER) (test ylcl=573) 3.37 M/ L 3.93-5.22 HEMOGLOBIN (BEAKER) (test eqtb=299) 10.1 GM/DL 11.2-15.7 HEMATOCRIT (BEAKER) (test truf=006) 30.4 % 34.1-44.9 MEAN CORPUSCULAR VOLUME (BEAKER) (test gtje=236) 90.2 fL 79.4-94.8 MEAN CORPUSCULAR HEMOGLOBIN (BEAKER) (test 30.0 pg 25.6-32.2 pujr=839) MEAN CORPUSCULAR HEMOGLOBIN CONC (BEAKER) (test 33.2 GM/DL 32.2-35.5 wrub=709) RED CELL DISTRIBUTION WIDTH (BEAKER) (test 13.1 % 11.7-14.4 hhmd=923) PLATELET COUNT (BEAKER) (test ypop=352) 215 K/CU MM 150-450 MEAN PLATELET VOLUME (BEAKER) (test qnpl=749) 9.2 fL 9.4-12.3 NUCLEATED RED BLOOD CELLS (BEAKER) (test 0 /100 WBC 0-0 yzrq=179) NEUTROPHILS RELATIVE PERCENT (BEAKER) (test 43 % yonq=957) LYMPHOCYTES RELATIVE PERCENT (BEAKER) (test 48 % ofwe=957) MONOCYTES RELATIVE PERCENT (BEAKER) (test 7 % fqsk=640) EOSINOPHILS RELATIVE PERCENT (BEAKER) (test 2 % gklj=113) BASOPHILS RELATIVE PERCENT (BEAKER) (test 0 % qwua=410) NEUTROPHILS ABSOLUTE COUNT (BEAKER) (test 3.41 K/ L 1.56-6.13 ywit=526) LYMPHOCYTES ABSOLUTE COUNT (BEAKER) (test 3.82 K/ L 1.18-3.74 gvcl=369) MONOCYTES ABSOLUTE COUNT (BEAKER) (test 0.52 K/ L 0.24-0.36 drik=459) EOSINOPHILS ABSOLUTE COUNT (BEAKER) (test 0.16 K/ L 0.04-0.36 qknn=979) BASOPHILS ABSOLUTE COUNT (BEAKER) (test 0.03 K/ L 0.01-0.08 xauv=411) IMMATURE GRANULOCYTES-RELATIVE PERCENT (BEAKER) 1 % 0-1 (test daln=9272) HEPATIC FUNCTION [id number] 05:39:00 Test Item Value Reference Range Comments TOTAL PROTEIN (BEAKER) (test nqrs=430) 6.3 gm/dL 6.0-8.3 ALBUMIN (BEAKER) (test bhnl=7193) 3.4 g/dL 3.5-5.0 BILIRUBIN TOTAL (BEAKER) (test khwy=374) 0.5 mg/dL 0.2-1.2 BILIRUBIN DIRECT (BEAKER) (test dfxi=102) 0.3 mg/dL 0.1-0.5 ALKALINE PHOSPHATASE (BEAKER) (test ngif=952) 164 U/L 40-150 AST (SGOT) (BEAKER) (test vmjw=272) 170 U/L 5-34 ALT (SGPT) (BEAKER) (test qtvr=109) 74 U/L 6-55 BASIC METABOLIC [id number] 05:39:00 Test Item Value Reference Range Comments SODIUM (BEAKER) (test 141 meq/L 136-145 fjln=965) POTASSIUM (BEAKER) (test 3.9 meq/L 3.5-5.1 ogcu=338) CHLORIDE (BEAKER) (test 110 meq/L 98-107 ntql=883) CO2 (BEAKER) (test 25 meq/L 22-29 knqc=322) BLOOD UREA NITROGEN 6 mg/dL 7-21 (BEAKER) (test zoqv=149) CREATININE (BEAKER) (test 0.84 mg/dL 0.57-1.25 nucf=732) GLUCOSE RANDOM (BEAKER) 122 mg/dL 70-105 (test yypj=504) CALCIUM (BEAKER) (test 8.8 mg/dL 8.4-10.2 wono=776) EGFR (BEAKER) (test 65 mL/min/1.73 sq m ESTIMATED GFR IS NOT acaj=8331) ACCURATE CREATININE CLEARANCE IN PREDICTING GLOMERULAR FILTRATION RATE. ESTIMATED GFR IS NOT APPLICABLE FOR DIALYSIS PATIENTS. HEPATIC FUNCTION [id number] 10:39:00 Test Item Value Reference Range Comments TOTAL PROTEIN (BEAKER) (test tqhw=530) 6.2 gm/dL 6.0-8.3 ALBUMIN (BEAKER) (test bekg=9542) 3.5 g/dL 3.5-5.0 BILIRUBIN TOTAL (BEAKER) (test hszl=799) 0.5 mg/dL 0.2-1.2 BILIRUBIN DIRECT (BEAKER) (test ezpy=327) 0.3 mg/dL 0.1-0.5 ALKALINE PHOSPHATASE (BEAKER) (test pcry=537) 192 U/L 40-150 AST (SGOT) (BEAKER) (test bgdf=383) 203 U/L 5-34 ALT (SGPT) (BEAKER) (test vwiz=542) 95 U/L 6-55 BASIC METABOLIC [id number] 05:39:00 Test Item Value Reference Range Comments SODIUM (BEAKER) (test 135 meq/L 136-145 esbh=279) POTASSIUM (BEAKER) (test 3.2 meq/L 3.5-5.1 cahy=932) CHLORIDE (BEAKER) (test 104 meq/L 98-107 xfmv=572) CO2 (BEAKER) (test 25 meq/L 22-29 gisw=439) BLOOD UREA NITROGEN 20 mg/dL 7-21 (BEAKER) (test njyj=647) CREATININE (BEAKER) (test 1.05 mg/dL 0.57-1.25 xnup=835) GLUCOSE RANDOM (BEAKER) 156 mg/dL 70-105 (test kvag=063) CALCIUM (BEAKER) (test 8.7 mg/dL 8.4-10.2 lkqc=896) EGFR (BEAKER) (test 51 mL/min/1.73 sq m ESTIMATED GFR IS NOT qbny=1504) ACCURATE CREATININE CLEARANCE IN PREDICTING GLOMERULAR FILTRATION RATE. ESTIMATED GFR IS NOT APPLICABLE FOR DIALYSIS PATIENTS. CBC W/PLT COUNT & AUTO [id number] 04:55:00 Test Item Value Reference Range Comments WHITE BLOOD CELL COUNT (BEAKER) (test xzaf=657) 11.1 K/ L 3.5-10.5 RED BLOOD CELL COUNT (BEAKER) (test vzqu=906) 3.19 M/ L 3.93-5.22 HEMOGLOBIN (BEAKER) (test odhh=866) 9.7 GM/DL 11.2-15.7 HEMATOCRIT (BEAKER) (test atff=057) 28.2 % 34.1-44.9 MEAN CORPUSCULAR VOLUME (BEAKER) (test oahu=319) 88.4 fL 79.4-94.8 MEAN CORPUSCULAR HEMOGLOBIN (BEAKER) (test 30.4 pg 25.6-32.2 vuqg=914) MEAN CORPUSCULAR HEMOGLOBIN CONC (BEAKER) (test 34.4 GM/DL 32.2-35.5 yuvl=845) RED CELL DISTRIBUTION WIDTH (BEAKER) (test 12.7 % 11.7-14.4 paob=113) PLATELET COUNT (BEAKER) (test jnsy=451) 207 K/CU MM 150-450 MEAN PLATELET VOLUME (BEAKER) (test lhwm=530) 9.0 fL 9.4-12.3 NUCLEATED RED BLOOD CELLS (BEAKER) (test 0 /100 WBC 0-0 pwqn=819) NEUTROPHILS RELATIVE PERCENT (BEAKER) (test 67 % sagp=104) LYMPHOCYTES RELATIVE PERCENT (BEAKER) (test 25 % huzq=843) MONOCYTES RELATIVE PERCENT (BEAKER) (test 7 % bbpx=465) EOSINOPHILS RELATIVE PERCENT (BEAKER) (test 1 % dlfe=346) BASOPHILS RELATIVE PERCENT (BEAKER) (test 0 % nazj=931) NEUTROPHILS ABSOLUTE COUNT (BEAKER) (test 7.37 K/ L 1.56-6.13 yoyu=089) LYMPHOCYTES ABSOLUTE COUNT (BEAKER) (test 2.77 K/ L 1.18-3.74 mngv=507) MONOCYTES ABSOLUTE COUNT (BEAKER) (test 0.81 K/ L 0.24-0.36 hwhl=397) EOSINOPHILS ABSOLUTE COUNT (BEAKER) (test 0.05 K/ L 0.04-0.36 zndb=041) BASOPHILS ABSOLUTE COUNT (BEAKER) (test 0.02 K/ L 0.01-0.08 uzao=219) IMMATURE GRANULOCYTES-RELATIVE PERCENT (BEAKER) 0 % 0-1 (test nied=4899) URINALYSIS W/ [id number] 22:01:00 Test Item Value Reference Range Comments COLOR (BEAKER) (test bwrd=562) Yellow CLARITY (BEAKER) (test ggjz=242) Hazy SPECIFIC GRAVITY UA (BEAKER) (test 1.015 1.001-1.035 olpt=718) PH UA (BEAKER) (test cmcg=824) 5.5 5.0-8.0 PROTEIN UA (BEAKER) (test mtkx=345) 30 mg/dL Negative GLUCOSE UA (BEAKER) (test btwh=532) Negative Negative KETONES UA (BEAKER) (test uphj=488) 10 mg/dL Negative BILIRUBIN UA (BEAKER) (test wgcs=698) Negative Negative BLOOD UA (BEAKER) (test vfak=201) Negative Negative NITRITE UA (BEAKER) (test whkm=547) Negative Negative LEUKOCYTE ESTERASE UA (BEAKER) (test Moderate Negative eycw=582) UROBILINOGEN UA (BEAKER) (test lkqm=383) 0.2 mg/dL 0.2-1.0 RBC UA (BEAKER) (test donx=941) 17 /HPF WBC UA (BEAKER) (test jgzs=447) 7 /HPF MUCUS (BEAKER) (test wxyn=9957) Few SQUAMOUS EPITHELIAL (BEAKER) (test 4 /HPF npbl=823) HYALINE CASTS (BEAKER) (test bxla=421) 17 /LPF SOURCE(BEAKER) (test gsic=7147) Urine, Clean Catch POCT-LACTIC ACID, [id number] 21:41:00 Test Item Value Reference Range Comments POC-LACTIC ACID, VENOUS 1.3 mmol/L 0.9-1.7 TESTED AT [facility] [address] (BEAKER) (test luqh=2713) [facility] [address] TROPONIN [id number] 20:17:00 Test Item Value Reference Range Comments TROPONIN I (BEAKER) (test nbfi=113) 0.02 ng/mL 0.00-0.03 Troponin I (TnI) levels must be interpreted [...] failure, acidosis, acute neurological disease, and persistent tachyarrhythmia.[id number] 20:12:00 Test Item Value Reference Range Comments LIPASE (BEAKER) (test ciwn=626) 56 U/L 8-78 [id number] 20:12:00 Test Item Value Reference Range Comments AMYLASE (BEAKER) (test ogak=978) 90 U/L 25-125 BASIC METABOLIC [id number] 20:12:00 Test Item Value Reference Range Comments SODIUM (BEAKER) (test 135 meq/L 136-145 wfko=106) POTASSIUM (BEAKER) (test 3.5 meq/L 3.5-5.1 xgjk=467) CHLORIDE (BEAKER) (test 100 meq/L 98-107 obdx=403) CO2 (BEAKER) (test 26 meq/L 22-29 tgxj=112) BLOOD UREA NITROGEN 27 mg/dL 7-21 (BEAKER) (test keln=124) CREATININE (BEAKER) (test 1.53 mg/dL 0.57-1.25 dbtj=730) GLUCOSE RANDOM (BEAKER) 135 mg/dL 70-105 (test rtgv=668) CALCIUM (BEAKER) (test 10.2 mg/dL 8.4-10.2 isdp=997) EGFR (BEAKER) (test 33 mL/min/1.73 sq m ESTIMATED GFR IS NOT sbxm=9575) ACCURATE CREATININE CLEARANCE IN PREDICTING GLOMERULAR FILTRATION RATE. ESTIMATED GFR IS NOT APPLICABLE FOR DIALYSIS PATIENTS. HEPATIC FUNCTION [id number] 20:12:00 Test Item Value Reference Range Comments TOTAL PROTEIN (BEAKER) (test hvso=678) 8.2 gm/dL 6.0-8.3 ALBUMIN (BEAKER) (test towr=6667) 4.5 g/dL 3.5-5.0 BILIRUBIN TOTAL (BEAKER) (test vsnw=624) 1.0 mg/dL 0.2-1.2 BILIRUBIN DIRECT (BEAKER) (test iyey=044) 0.7 mg/dL 0.1-0.5 ALKALINE PHOSPHATASE (BEAKER) (test evnn=567) 238 U/L 40-150 AST (SGOT) (BEAKER) (test pyyy=567) 210 U/L 5-34 ALT (SGPT) (BEAKER) (test ppqh=896) 87 U/L 6-55 CBC W/PLT COUNT & AUTO [id number] 19:59:00 Test Item Value Reference Range Comments WHITE BLOOD CELL COUNT (BEAKER) (test pisk=459) 12.1 K/ L 3.5-10.5 RED BLOOD CELL COUNT (BEAKER) (test bgom=539) 3.95 M/ L 3.93-5.22 HEMOGLOBIN (BEAKER) (test bnub=259) 11.9 GM/DL 11.2-15.7 HEMATOCRIT (BEAKER) (test glfx=580) 35.5 % 34.1-44.9 MEAN CORPUSCULAR VOLUME (BEAKER) (test ommh=283) 89.9 fL 79.4-94.8 MEAN CORPUSCULAR HEMOGLOBIN (BEAKER) (test 30.1 pg 25.6-32.2 gnoy=401) MEAN CORPUSCULAR HEMOGLOBIN CONC (BEAKER) (test 33.5 GM/DL 32.2-35.5 yuzl=094) RED CELL DISTRIBUTION WIDTH (BEAKER) (test 12.8 % 11.7-14.4 qhqr=234) PLATELET COUNT (BEAKER) (test pvax=660) 252 K/CU MM 150-450 MEAN PLATELET VOLUME (BEAKER) (test yyox=273) 8.9 fL 9.4-12.3 NUCLEATED RED BLOOD CELLS (BEAKER) (test 0 /100 WBC 0-0 qddg=621) NEUTROPHILS RELATIVE PERCENT (BEAKER) (test 76 % onkv=025) LYMPHOCYTES RELATIVE PERCENT (BEAKER) (test 15 % kwzv=451) MONOCYTES RELATIVE PERCENT (BEAKER) (test 7 % mxlm=762) EOSINOPHILS RELATIVE PERCENT (BEAKER) (test 0 % akmq=890) BASOPHILS RELATIVE PERCENT (BEAKER) (test 0 % zvtf=558) NEUTROPHILS ABSOLUTE COUNT (BEAKER) (test 9.18 K/ L 1.56-6.13 wufr=413) LYMPHOCYTES ABSOLUTE COUNT (BEAKER) (test 1.86 K/ L 1.18-3.74 mqmu=402) MONOCYTES ABSOLUTE COUNT (BEAKER) (test 0.87 K/ L 0.24-0.36 eplc=974) EOSINOPHILS ABSOLUTE COUNT (BEAKER) (test 0.04 K/ L 0.04-0.36 qbkt=816) BASOPHILS ABSOLUTE COUNT (BEAKER) (test 0.03 K/ L 0.01-0.08 tbyq=607) IMMATURE GRANULOCYTES-RELATIVE PERCENT (BEAKER) 1 % 0-1 (test pkjf=6904) [id number] 07:40:00 Test Item Value Reference Range Comments PHOSPHORUS (BEAKER) (test rqpy=497) 2.6 mg/dL 2.3-4.7 [id number] 07:40:00 Test Item Value Reference Range Comments MAGNESIUM (BEAKER) (test ttsb=333) 2.0 mg/dL 1.6-2.6 BASIC METABOLIC [id number] 07:40:00 Test Item Value Reference Range Comments SODIUM (BEAKER) (test 137 meq/L 136-145 pbjn=928) POTASSIUM (BEAKER) (test 3.6 meq/L 3.5-5.1 jgkt=467) CHLORIDE (BEAKER) (test 104 meq/L 98-107 gcru=801) CO2 (BEAKER) (test 23 meq/L 22-29 lggg=310) BLOOD UREA NITROGEN 14 mg/dL 7-21 (BEAKER) (test llmh=342) CREATININE (BEAKER) (test 0.89 mg/dL 0.57-1.25 ohtk=846) GLUCOSE RANDOM (BEAKER) 78 mg/dL 70-105 (test ppby=311) CALCIUM (BEAKER) (test 9.6 mg/dL 8.4-10.2 qmeq=642) EGFR (BEAKER) (test 61 mL/min/1.73 sq m ESTIMATED GFR IS NOT lnxi=1716) ACCURATE CREATININE CLEARANCE IN PREDICTING GLOMERULAR FILTRATION RATE. ESTIMATED GFR IS NOT APPLICABLE FOR DIALYSIS PATIENTS. HEPATIC FUNCTION [id number] 07:40:00 Test Item Value Reference Range Comments TOTAL PROTEIN (BEAKER) (test kywb=110) 6.9 gm/dL 6.0-8.3 ALBUMIN (BEAKER) (test rrup=5242) 3.7 g/dL 3.5-5.0 BILIRUBIN TOTAL (BEAKER) (test stdy=218) 0.5 mg/dL 0.2-1.2 BILIRUBIN DIRECT (BEAKER) (test rlqm=211) 0.3 mg/dL 0.1-0.5 ALKALINE PHOSPHATASE (BEAKER) (test qtnw=180) 125 U/L 40-150 AST (SGOT) (BEAKER) (test qcdn=158) 213 U/L 5-34 ALT (SGPT) (BEAKER) (test ekwk=571) 105 U/L 6-55 CBC W/PLT COUNT & AUTO [id number] 06:51:00 Test Item Value Reference Range Comments WHITE BLOOD CELL COUNT (BEAKER) (test qihi=772) 9.6 K/ L 3.5-10.5 RED BLOOD CELL COUNT (BEAKER) (test kosw=322) 3.71 M/ L 3.93-5.22 HEMOGLOBIN (BEAKER) (test lgif=542) 11.1 GM/DL 11.2-15.7 HEMATOCRIT (BEAKER) (test aavg=441) 33.4 % 34.1-44.9 MEAN CORPUSCULAR VOLUME (BEAKER) (test bick=247) 90.0 fL 79.4-94.8 MEAN CORPUSCULAR HEMOGLOBIN (BEAKER) (test 29.9 pg 25.6-32.2 jroy=099) MEAN CORPUSCULAR HEMOGLOBIN CONC (BEAKER) (test 33.2 GM/DL 32.2-35.5 nccr=519) RED CELL DISTRIBUTION WIDTH (BEAKER) (test 12.8 % 11.7-14.4 gtap=448) PLATELET COUNT (BEAKER) (test jvvt=838) 239 K/CU MM 150-450 MEAN PLATELET VOLUME (BEAKER) (test przp=568) 9.4 fL 9.4-12.3 NUCLEATED RED BLOOD CELLS (BEAKER) (test 0 /100 WBC 0-0 atfz=710) NEUTROPHILS RELATIVE PERCENT (BEAKER) (test 55 % jbdr=852) LYMPHOCYTES RELATIVE PERCENT (BEAKER) (test 36 % znny=031) MONOCYTES RELATIVE PERCENT (BEAKER) (test 6 % jhee=379) EOSINOPHILS RELATIVE PERCENT (BEAKER) (test 2 % lxwv=410) BASOPHILS RELATIVE PERCENT (BEAKER) (test 0 % zeee=531) NEUTROPHILS ABSOLUTE COUNT (BEAKER) (test 5.28 K/ L 1.56-6.13 cldl=442) LYMPHOCYTES ABSOLUTE COUNT (BEAKER) (test 3.43 K/ L 1.18-3.74 pryf=682) MONOCYTES ABSOLUTE COUNT (BEAKER) (test 0.61 K/ L 0.24-0.36 ixnf=434) EOSINOPHILS ABSOLUTE COUNT (BEAKER) (test 0.21 K/ L 0.04-0.36 oxos=539) BASOPHILS ABSOLUTE COUNT (BEAKER) (test 0.04 K/ L 0.01-0.08 cpzo=790) IMMATURE GRANULOCYTES-RELATIVE PERCENT (BEAKER) 0 % 0-1 (test kdlm=4085) TROPONIN [id number] 12:48:00 Test Item Value Reference Range Comments TROPONIN I (BEAKER) (test tfbf=401) 0.05 ng/mL 0.00-0.03 Troponin I (TnI) levels must be interpreted [...] failure, acidosis, acute neurological disease, and persistent tachyarrhythmia.HEMOGLOBIN [id number] 09:39:00 Test Item Value Reference Range Comments HEMOGLOBIN A1C (BEAKER) (test vqba=423) 6.1 % 4.3-6.1 TSH/FREE T4 IF [id number] 07:14:00 Test Item Value Reference Range Comments THYROID STIMULATING HORMONE (BEAKER) (test 3.28 uIU/mL 0.35-4.94 bhhg=310) [id number] 06:50:00 Test Item Value Reference Range Comments PHOSPHORUS (BEAKER) (test hpze=306) 1.8 mg/dL 2.3-4.7 [id number] 06:50:00 Test Item Value Reference Range Comments MAGNESIUM (BEAKER) (test lwbk=357) 1.9 mg/dL 1.6-2.6 BASIC METABOLIC [id number] 06:50:00 Test Item Value Reference Range Comments SODIUM (BEAKER) (test 140 meq/L 136-145 lwns=215) POTASSIUM (BEAKER) (test 3.8 meq/L 3.5-5.1 upwq=498) CHLORIDE (BEAKER) (test 110 meq/L 98-107 domf=264) CO2 (BEAKER) (test 20 meq/L 22-29 hilq=918) BLOOD UREA NITROGEN 10 mg/dL 7-21 (BEAKER) (test bysm=760) CREATININE (BEAKER) (test 0.85 mg/dL 0.57-1.25 utnu=126) GLUCOSE RANDOM (BEAKER) 78 mg/dL 70-105 (test sqyd=472) CALCIUM (BEAKER) (test 8.9 mg/dL 8.4-10.2 rwec=578) EGFR (BEAKER) (test 65 mL/min/1.73 sq m ESTIMATED GFR IS NOT jffh=4217) ACCURATE CREATININE CLEARANCE IN PREDICTING GLOMERULAR FILTRATION RATE. ESTIMATED GFR IS NOT APPLICABLE FOR DIALYSIS PATIENTS. LIPID [id number] 06:50:00 Test Item Value Reference Range Comments TRIGLYCERIDES (BEAKER) (test rrlz=935) 64 mg/dL CHOLESTEROL (BEAKER) (test bqea=470) 95 mg/dL HDL CHOLESTEROL (BEAKER) (test pfib=091) 46 mg/dL LDL CHOLESTEROL CALCULATED (BEAKER) (test ewee=331) 36 mg/dL Triglyceride Reference Range: Low Risk <150 Borderline 150- 199 High Risk 200-499 Very High Risk >=500Cholesterol Reference Range: Low Risk <200 Borderline 200-239 High Risk > 240HDL Cholesterol Reference Range: Low Risk >=60 High Risk <40LDL Cholesterol Reference Range: Optimal <100 Near Optimal 100-129 Borderline 130-159 High 160-189 Very High >=190HEPATIC FUNCTION [id number] 06:50:00 Test Item Value Reference Range Comments TOTAL PROTEIN (BEAKER) (test dffy=895) 6.1 gm/dL 6.0-8.3 ALBUMIN (BEAKER) (test qesp=5298) 3.3 g/dL 3.5-5.0 BILIRUBIN TOTAL (BEAKER) (test pnxq=740) 0.3 mg/dL 0.2-1.2 BILIRUBIN DIRECT (BEAKER) (test dayf=193) 0.2 mg/dL 0.1-0.5 ALKALINE PHOSPHATASE (BEAKER) (test igpg=483) 109 U/L 40-150 AST (SGOT) (BEAKER) (test zehl=269) 270 U/L 5-34 ALT (SGPT) (BEAKER) (test wuac=126) 143 U/L 6-55 [id number] 06:50:00 Test Item Value Reference Range Comments AMYLASE (BEAKER) (test fxlx=027) 44 U/L 25-125 [id number] 06:50:00 Test Item Value Reference Range Comments LIPASE (BEAKER) (test qgnx=418) 9 U/L 8-78 C-REACTIVE [id number] 06:50:00 Test Item Value Reference Range Comments C-REACTIVE PROTEIN (BEAKER) (test olwu=123) 3.20 mg/dL 0.00-0.50 CREATINE KINASE (CK), TOTAL AND [id number] 06:50:00 Test Item Value Reference Range Comments CREATINE KINASE TOTAL (BEAKER) (test rqid=363) 189 U/L 29-200 CREATINE KINASE-MB (BEAKER) (test zcxw=023) 3.0 ng/mL 0.0-6.6 CREATINE KINASE-MB INDEX (BEAKER) (test wqbk=107) 1.6 % CK-MB Reference Range:<6.7 Normal6.7-10.0 Borderline>10.0 AbnormalTROPONIN [id number] 06:50:00 Test Item Value Reference Range Comments TROPONIN I (BEAKER) (test idpa=232) 0.10 ng/mL 0.00-0.03 Troponin I (TnI) levels must be interpreted [...] failure, acidosis, acute neurological disease, and persistent tachyarrhythmia.PT/[id number] 06:41:00 Test Item Value Reference Range Comments PROTIME (BEAKER) (test jeku=297) 16.3 seconds 11.7-14.7 INR (BEAKER) (test nyyu=283) 1.3 <=5.9 PARTIAL THROMBOPLASTIN TIME (BEAKER) (test 39.1 seconds 22.5-36.0 rsvl=974) RECOMMENDED COUMADIN/WARFARIN INR THERAPY RANGESSTANDARD DOSE: 2.0 - 3.0 Includes: PROPHYLAXIS forvenous thrombosis, systemic embolization; TREATMENT for venous thrombosis and/or pulmonary embolus.HIGH RISK: Target INR is 2.5-3.5 for patients with mechanical heart valves.CBC W/PLT COUNT & AUTO [id number] 06:32:00 Test Item Value Reference Range Comments WHITE BLOOD CELL COUNT (BEAKER) (test wkod=170) 9.5 K/ L 3.5-10.5 RED BLOOD CELL COUNT (BEAKER) (test slkw=627) 3.19 M/ L 3.93-5.22 HEMOGLOBIN (BEAKER) (test kfue=689) 9.6 GM/DL 11.2-15.7 HEMATOCRIT (BEAKER) (test edib=772) 29.1 % 34.1-44.9 MEAN CORPUSCULAR VOLUME (BEAKER) (test pkjc=914) 91.2 fL 79.4-94.8 MEAN CORPUSCULAR HEMOGLOBIN (BEAKER) (test 30.1 pg 25.6-32.2 krfy=975) MEAN CORPUSCULAR HEMOGLOBIN CONC (BEAKER) (test 33.0 GM/DL 32.2-35.5 rpyi=137) RED CELL DISTRIBUTION WIDTH (BEAKER) (test 13.1 % 11.7-14.4 ykyb=435) PLATELET COUNT (BEAKER) (test ifzu=993) 209 K/CU MM 150-450 MEAN PLATELET VOLUME (BEAKER) (test itna=447) 9.5 fL 9.4-12.3 NUCLEATED RED BLOOD CELLS (BEAKER) (test 0 /100 WBC 0-0 ahtd=202) NEUTROPHILS RELATIVE PERCENT (BEAKER) (test 64 % trqc=716) LYMPHOCYTES RELATIVE PERCENT (BEAKER) (test 27 % plcx=767) MONOCYTES RELATIVE PERCENT (BEAKER) (test 7 % wovf=181) EOSINOPHILS RELATIVE PERCENT (BEAKER) (test 1 % ppnj=658) BASOPHILS RELATIVE PERCENT (BEAKER) (test 1 % oqik=129) NEUTROPHILS ABSOLUTE COUNT (BEAKER) (test 6.09 K/ L 1.56-6.13 ozuy=307) LYMPHOCYTES ABSOLUTE COUNT (BEAKER) (test 2.58 K/ L 1.18-3.74 imor=803) MONOCYTES ABSOLUTE COUNT (BEAKER) (test 0.66 K/ L 0.24-0.36 gobz=638) EOSINOPHILS ABSOLUTE COUNT (BEAKER) (test 0.12 K/ L 0.04-0.36 yzaz=814) BASOPHILS ABSOLUTE COUNT (BEAKER) (test 0.05 K/ L 0.01-0.08 fhic=325) IMMATURE GRANULOCYTES-RELATIVE PERCENT (BEAKER) 0 % 0-1 (test lzbk=4665) MO, [id number] 14:41:00Reason for exam:->recurrent ruq pain,isolated right biliary systemAddendum BeginsREPORT STATUS:A Addendum Fluoroscopy time: 2.4 minutes Number of exposures performed: 8 Radiation dose (Ka,r): 17.4 mGy Signed: Joe Hidalgo Verified Date/Time : 07/05/2017 14:41:02 Reading Location: [facility] Diagnostic Imaging Reading [facility].12Addendum EndsAddendum BeginsREPORT STATUS:A Addendum Fluoroscopy time: 2.4 minutes Number of exposures performed: Eight Radiation dose (Ka,r): 17.4 mGy Signed: Joe Hidalgo Verified Date/Time: 07/05/2017 14:37:54 Reading Location: [facility] Diagnostic Imaging Reading Room [place] [id number] EndsFINAL REPORT ERCP History provided: Recurrent right upper quadrant pain Comparison exam: 2010 Cholecystectomy clips are evident. Retrograde injection opacifies dilated common bile duct which is only partially opacified with contrast, and normal visualized intrahepatic biliary ducts. On the final image, a stent was placed extending from the upper common duct distally. Signed: Joe Hidalgo MDReport Verified Date/Time: 06/04/2017 17:18:22 Reading Location: [address] Radiology Reading Room Electronically signed by: JOE HIDALGO on 2016 02:41 PM
--- NOTE | 2018-12-30 02:01 | EDPHYS ---
Physician Documentation [facility] Name: Yoly Howard Age: 78 yrs Sex: Female : 1940 Arrival Date: 12/29/2018 Time: 23:37 Bed 7 Private MD: Alyssa Merritt C ED Physician Alexandro Rokc HPI: 12/30 00:20 This 78 yrs old Female presents to ER via Ambulatory with complaints of Check alfie for blood clot. 00:20 The patient or guardian reports decreased range of motion, pain. that occurred at home. alfie The complaints affect the left upper thigh. Onset: The symptoms/episode began/occurred 2 day(s) ago. Modifying factors: The symptoms are alleviated by nothing, the symptoms are aggravated by nothing. The patient presents with decreased range of motion, pain. The complaints affect the left hip, left upper thigh and left quadriceps. Context: The problem was sustained at an unknown site. Modifying factors: The symptoms are alleviated by remaining still, the symptoms are aggravated by movement. Historical: - Allergies: 12/29 23:58 Codeine; bb 23:58 Flagyl; bb 23:58 Levaquin; bb - Home Meds: 23:58 metoprolol tartrate 25 mg Oral tab 1 tab once daily [Active]; levothyroxine 25 mcg tab bb 1 tab once daily [Active]; aspirin 325 mg Oral tab 1 tab once daily [Active]; simvastatin 20 mg Oral tab 1 tab once daily [Active]; Vit C 1000 mg daily [Active]; Vit D 1000 IU daily [Active]; amlodipine 5 mg tab 1 tab once daily [Active]; Caltrate 600 + D 600 mg (1,500 mg)-800 unit oral chew daily [Active]; - PMHx: 23:58 abdominal pain; High Cholesterol; Hypertension; Nausea; bb - PSHx: 23:58 Tubal ligation; Cholecystectomy; bb - Immunization history:: Adult Immunizations up to date, Pneumococcal vaccine is up to date, Flu vaccine is up to date. - Social history:: Smoking status: Patient/guardian denies using tobacco. - Ebola Screening: : No symptoms or risks identified at this time. - Family history:: not pertinent. ROS: 12/30 00:20 Constitutional: Negative for fever, chills, and weight loss, Eyes: Negative for injury, alfie pain, redness, and discharge, ENT: Negative for injury, pain, and discharge, Neck: Negative for injury, pain, and swelling, Cardiovascular: Negative for chest pain, palpitations, and edema, Respiratory: Negative for shortness of breath, cough, wheezing, and pleuritic chest pain, Abdomen/GI: Negative for abdominal pain, nausea, vomiting, diarrhea, and constipation, Back: Negative for injury and pain, : Negative for injury, bleeding, discharge, and swelling, Skin: Negative for injury, rash, and discoloration, Neuro: Negative for headache, weakness, numbness, tingling, and seizure, Psych: Negative for depression, anxiety, suicide ideation, homicidal ideation, and hallucinations, Allergy/Immunology: Negative for hives, rash, and allergies, Endocrine: Negative for neck swelling, polydipsia, polyuria, polyphagia, and marked weight changes, Hematologic/Lymphatic: Negative for swollen nodes, abnormal bleeding, and unusual bruising. MS/extremity: Positive for decreased range of motion, pain, of the left upper thigh and left quadriceps. Exam: 00:20 Constitutional: This is a well developed, well nourished patient who is awake, alert, alfie and in no acute distress. Head/Face: Normocephalic, atraumatic. Eyes: Pupils equal round and reactive to light, extra-ocular motions intact. Lids and lashes normal. Conjunctiva and sclera are non-icteric and not injected. Cornea within normal limits. Periorbital areas with no swelling, redness, or edema. ENT: Nares patent. No nasal discharge, no septal abnormalities noted. Tympanic membranes are normal and external auditory canals are clear. Oropharynx with no redness, swelling, or masses, exudates, or evidence of obstruction, uvula midline. Mucous membranes moist. Neck: Trachea midline, no thyromegaly or masses palpated, and no cervical lymphadenopathy. Supple, full range of motion without nuchal rigidity, or vertebral point tenderness. No Meningismus. Chest/axilla: Normal chest wall appearance and motion. Nontender with no deformity. No lesions are appreciated. Cardiovascular: Regular rate and rhythm with a normal S1 and S2. No gallops, murmurs, or rubs. Normal PMI, no JVD. No pulse deficits. Respiratory: Lungs have equal breath sounds bilaterally, clear to auscultation and percussion. No rales, rhonchi or wheezes noted. No increased work of breathing, no retractions or nasal flaring. Abdomen/GI: Soft, non-tender, with normal bowel sounds. No distension or tympany. No guarding or rebound. No evidence of tenderness throughout. Back: No spinal tenderness. No costovertebral tenderness. Full range of motion. Skin: Warm, dry with normal turgor. Normal color with no rashes, no lesions, and no evidence of cellulitis. Neuro: Awake and alert, GCS 15, oriented to person, place, time, and situation. Cranial nerves II-XII grossly intact. Motor strength 5/5 in all extremities. Sensory grossly intact. Cerebellar exam normal. Normal gait. Psych: Awake, alert, with orientation to person, place and time. Behavior, mood, and affect are within normal limits. 00:20 Musculoskeletal/extremity: Extremities: noted in the left hip and left upper thigh: pain. Vital Signs: 12/29 23:58 BP 151 / 56; Pulse 63; Resp 16 S; Temp 97.7(O); Pulse Ox 98% on R/A; Weight 45.81 kg bb (R); Height 5 ft. 3 in. (160.02 cm) (R); Pain 6/10; 23:58 Body Mass Index 17.89 (45.81 kg, 160.02 cm) bb MDM: 12/30 00:10 Patient medically screened. [facility] 00:20 Data reviewed: vital signs, nurses notes, lab test result(s), radiologic studies, [facility] doppler. 12/30 02:00 Order name: Urine Dipstick--Ancillary (enter results) me 12/30 02:02 Order name: Urine Culture [facility] 12/30 00:19 Order name: Pelvis XRAY [facility] 12/30 00:19 Order name: US Extremity Venous W Compression Gaurav [facility] Administered Medications: No medications were administered Disposition: 12/30/18 02:00 Discharged to Home. Impression: Pain in left leg - groin, Urinary tract infection, site not specified. - Condition is Stable. - Discharge Instructions: Musculoskeletal Pain, Urinary Tract Infection, Adult, Urinary Tract Infection, Adult, [id number]. - Prescriptions for Bactrim DS 800- 160 mg Oral Tablet - take 1 tablet by ORAL route every 12 hours for 3 days; 6 tablet. - Medication Reconciliation Form, Thank You Letter, Antibiotic Education, Prescription Opioid Use form. - Follow up: A Merritt; When: 2 - 3 days; Reason: Recheck today's complaints, Continuance of care, Re-evaluation by your physician. - Problem is new. - Symptoms have improved. Signatures: Dispatcher [employer] EDTX Alexandro Rock MD MD cha Ballard, Brenda RN RN bb Aga Howe RN RN lp1 Corrections: (The following items were deleted from the chart) 02:02 02:00 12/30/2018 02:00 Discharged to Home. Impression: Pain in left leg - groin. [facility] Condition is Stable. Discharge Instructions: Musculoskeletal Pain. Forms are Medication Reconciliation Form, Thank You Letter, Antibiotic Education, Prescription Opioid Use. Follow up: A Merritt; When: 2 - 3 days; Reason: Recheck today's complaints, Continuance of care, Re-evaluation by your physician. Problem is new. Symptoms have improved. [facility] 02:32 02:02 12/30/2018 02:00 Discharged to Home. Impression: Pain in left leg - groin; lp1 Urinary tract infection, site not specified. Condition is Stable. Discharge Instructions: Musculoskeletal Pain. Forms are Medication Reconciliation Form, Thank You Letter, Antibiotic Education, Prescription Opioid Use. Follow up: A Merritt; When: 2 - 3 days; Reason: Recheck today's complaints, Continuance of care, Re-evaluation by your physician. Problem is new. Symptoms have improved. [facility]
--- NOTE | 2018-12-30 02:01 | ER ---
Nurse's Notes [facility] Name: Yoly Howard Age: 78 yrs Sex: Female : 1940 Arrival Date: 12/29/2018 Time: 23:37 Bed 7 Private MD: Alyssa Merritt C Diagnosis: Pain in left leg-groin;Urinary tract infection, site not specified Presentation: 12/29 23:51 Presenting complaint: Patient states: she thinks she may have a blood clot to her left bb groin because it started hurting yesterday and has become discolored in that location. pt denies blood clots in the past. Transition of care: patient was not received from another setting of care. Onset of symptoms was December 28, 2018. Risk Assessment: Do you want to hurt yourself or someone else? Patient reports no desire to harm self or others. Initial Sepsis Screen: Does the patient meet any 2 criteria? No. Patient's initial sepsis screen is negative. Does the patient have a suspected source of infection? No. Patient's initial sepsis screen is negative. Care prior to arrival: None. 23:51 Method Of Arrival: Ambulatory bb 23:51 Acuity: JACLYN 3 bb Historical: - Allergies: 23:58 Codeine; bb 23:58 Flagyl; bb 23:58 Levaquin; bb - Home Meds: 23:58 metoprolol tartrate 25 mg Oral tab 1 tab once daily [Active]; levothyroxine 25 mcg tab bb 1 tab once daily [Active]; aspirin 325 mg Oral tab 1 tab once daily [Active]; simvastatin 20 mg Oral tab 1 tab once daily [Active]; Vit C 1000 mg daily [Active]; Vit D 1000 IU daily [Active]; amlodipine 5 mg tab 1 tab once daily [Active]; Caltrate 600 + D 600 mg (1,500 mg)-800 unit oral chew daily [Active]; - PMHx: 23:58 abdominal pain; High Cholesterol; Hypertension; Nausea; bb - PSHx: 23:58 Tubal ligation; Cholecystectomy; bb - Immunization history:: Adult Immunizations up to date, Pneumococcal vaccine is up to date, Flu vaccine is up to date. - Social history:: Smoking status: Patient/guardian denies using tobacco. - Ebola Screening: : No symptoms or risks identified at this time. - Family history:: not pertinent. Screenin/05 00:24 Abuse screen: Denies threats or abuse. Denies injuries from another. Nutritional lp1 screening: No deficits noted. Tuberculosis screening: No symptoms or risk factors identified. Fall Risk None identified. Assessment: 00:23 General: Appears in no apparent distress. Behavior is calm, cooperative, appropriate lp1 for age. Pain: Complains of pain in left femoral area. Neuro: Level of Consciousness is awake, alert, obeys commands, Oriented to person, place, time, situation. Cardiovascular: Patient's skin is warm and dry. Respiratory: Respiratory effort is even, unlabored. GI: Abdomen is flat, non-distended, Bowel sounds present X 4 quads. Abd is soft and non tender X 4 quads. : No signs and/or symptoms were reported regarding the genitourinary system. EENT: No signs and/or symptoms were reported regarding the EENT system. Derm: Skin is pink, warm \T\ dry. Musculoskeletal: Circulation, motion, and sensation intact. Range of motion: intact in all extremities. 00:54 Reassessment: Ultrasound at bedside. lp1 Vital Signs: 12/29 23:58 BP 151 / 56; Pulse 63; Resp 16 S; Temp 97.7(O); Pulse Ox 98% on R/A; Weight 45.81 kg bb (R); Height 5 ft. 3 in. (160.02 cm) (R); Pain 6/10; 23:58 Body Mass Index 17.89 (45.81 kg, 160.02 cm) bb ED Course: 23:37 Patient arrived in ED. es 23:37 Alyssa Merritt MD is Private Physician. es 23:52 Triage completed. bb 23:58 Arm band placed on Patient placed in an exam room, on a stretcher, on pulse oximetry. bb Family accompanied patient. 12/30 00:10 Alexandro Rock MD is Attending Physician. alfie 00:16 Aga Howe, PONCHO is Primary Nurse. lp1 00:24 Patient has correct armband on for positive identification. Placed in gown. Bed in low lp1 position. Call light in reach. Pulse ox on. NIBP on. 00:53 X-ray completed. Portable x-ray completed in exam room. Patient tolerated procedure kw well. 00:55 Pelvis XRAY In Process Unspecified. EDMS 01:23 Ultrasound completed. hr 01:23 US Extremity Venous W Compression Gaurav In Process Unspecified. EDMS 02:00 Alyssa Merritt MD is Referral Physician. [facility] 02:00 No provider procedures requiring assistance completed. Patient did not have IV access lp1 during this emergency room visit. Administered Medications: No medications were administered Outcome: 02:00 Discharge ordered by . alfie 02:15 Discharged to home ambulatory, with family. lp1 02:15 Condition: good 02:15 Discharge instructions given to patient, Instructed on discharge instructions, follow up and referral plans. medication usage, Demonstrated understanding of instructions, follow-up care, medications, Prescriptions given X 1. 02:15 Patient left the ED. lp1 Signatures: Dispatcher [employer] EDUT Alexandro Rock MD MD cha Salyer, Edna es Rod, Haley hr Ballard, Brenda, RN RN Felicita Cuellar Laura, RN RN lp1 Corrections: (The following items were deleted from the chart) 02:30 02:29 No provider procedures requiring assistance completed. lp1 lp1 02:30 02:29 Patient did not have IV access during this emergency room visit. lp1 lp1 02:33 02:32 Patient left the ED. lp1 lp1
[2018-12-30 02:17] LABS: Urine Blood NEGATIVE (NEG); Urine Glucose NEGATIVE (NEG); Urine Protein NEGATIVE (NEG); Urine Specific Gravity 1.015 (1.005-1.030); Urine pH 5.5 (5.0-7.0)
[2018-12-30 02:37] VITALS: BP 151/56; TEMP 97.7; O2SAT 98
--- NOTE | 2018-12-30 08:06 | RAD REPORT ---
EXAM DESCRIPTION: USExtrem Venous W Compress Bil12/30/2018 1:24 am CLINICAL HISTORY: Bilateral leg swelling COMPARISON: none FINDINGS: The common femoral, superficial femoral, popliteal bilaterally and left posterior tibial v ein are compressible and demonstrate augmentation. Doppler demonstrates good flow. IMPRESSION: No evidence of deep venous thrombosis involving either lower extremity.
--- NOTE | 2018-12-30 08:09 | RAD REPORT ---
EXAM DESCRIPTION: RAD - Pelvis - 12/30/2018 12:58 am CLINICAL HISTORY: Left hip pain FINDINGS: No fracture or dislocation is seen. An area sclerosis may be present within the left femoral neck. Dedicated left hip x-ray plain-film se [place] recommended Mild osteoarthritis involves the hips. The bones are osteoporotic
== END 2018-12-30 02:32 | disposition home or self-care (01) ==
LOC: ER 23:33
DX: M79.652 Pain in left thigh (principal); N39.0 Urinary tract infection, site not specified; I10 Essential (primary) hypertension; E78.00 Pure hypercholesterolemia, unspecified; Z79.82 Long term (current) use of aspirin; Z88.1 Allergy status to other antibiotic agents; Z88.5 Allergy status to narcotic agent
CPT/HCPCS: 72170; 81003; 87086; 87088; 93970; 99283

== ENCOUNTER 2019-12-19 23:35 | Emergency (ER) | payer OTHER ==
--- OUTSIDE RECORDS SUMMARY | 2019-12-19 23:39 | XMS REPORT ---
:1940 [facility] [address] [place] [address] Care Team Providers Name Role Phone DAMON KESSLER Unavailable Unavailable RICH BOONE Unavailable Unavailable Payers Payer Name Policy Type Policy Number Effective Date Expiration Date Problems This patient has no known problems. Allergies, Adverse Reactions, Alerts This patient has no known allergies or adverse reactions. Medications This patient has no known medications. Results Test Description Test Time Test Comments Text Results Atomic Results Result Comments BLOOD CULTURE 2018-06-29 06:00:00 Test Item Value Reference Range Comments CULTURE (BEAKER) (test hakp=0552) No growth in 5 days BLOOD [id number] 06:00:00 Test Item Value Reference Range Comments CULTURE (BEAKER) (test ksba=9875) No growth in 5 days CBC W/PLT COUNT & AUTO [id number] 05:48:00 Test Item Value Reference Range Comments WHITE BLOOD CELL COUNT (BEAKER) (test ftbj=055) 8.0 K/ L 3.5-10.5 RED BLOOD CELL COUNT (BEAKER) (test douc=578) 3.37 M/ L 3.93-5.22 HEMOGLOBIN (BEAKER) (test cetw=867) 10.1 GM/DL 11.2-15.7 HEMATOCRIT (BEAKER) (test vbql=747) 30.4 % 34.1-44.9 MEAN CORPUSCULAR VOLUME (BEAKER) (test opht=563) 90.2 fL 79.4-94.8 MEAN CORPUSCULAR HEMOGLOBIN (BEAKER) (test 30.0 pg 25.6-32.2 btuj=648) MEAN CORPUSCULAR HEMOGLOBIN CONC (BEAKER) (test 33.2 GM/DL 32.2-35.5 djce=844) RED CELL DISTRIBUTION WIDTH (BEAKER) (test 13.1 % 11.7-14.4 ddsg=310) PLATELET COUNT (BEAKER) (test quaf=979) 215 K/CU MM 150-450 MEAN PLATELET VOLUME (BEAKER) (test xevz=550) 9.2 fL 9.4-12.3 NUCLEATED RED BLOOD CELLS (BEAKER) (test 0 /100 WBC 0-0 ewux=396) NEUTROPHILS RELATIVE PERCENT (BEAKER) (test 43 % ihzq=373) LYMPHOCYTES RELATIVE PERCENT (BEAKER) (test 48 % uxwl=248) MONOCYTES RELATIVE PERCENT (BEAKER) (test 7 % lryg=599) EOSINOPHILS RELATIVE PERCENT (BEAKER) (test 2 % afyo=457) BASOPHILS RELATIVE PERCENT (BEAKER) (test 0 % afky=241) NEUTROPHILS ABSOLUTE COUNT (BEAKER) (test 3.41 K/ L 1.56-6.13 bexa=885) LYMPHOCYTES ABSOLUTE COUNT (BEAKER) (test 3.82 K/ L 1.18-3.74 vbfu=064) MONOCYTES ABSOLUTE COUNT (BEAKER) (test 0.52 K/ L 0.24-0.36 wxqs=040) EOSINOPHILS ABSOLUTE COUNT (BEAKER) (test 0.16 K/ L 0.04-0.36 nplv=371) BASOPHILS ABSOLUTE COUNT (BEAKER) (test 0.03 K/ L 0.01-0.08 ayiz=065) IMMATURE GRANULOCYTES-RELATIVE PERCENT (BEAKER) 1 % 0-1 (test dczc=3678) HEPATIC FUNCTION [id number] 05:39:00 Test Item Value Reference Range Comments TOTAL PROTEIN (BEAKER) (test chze=643) 6.3 gm/dL 6.0-8.3 ALBUMIN (BEAKER) (test yorh=5188) 3.4 g/dL 3.5-5.0 BILIRUBIN TOTAL (BEAKER) (test dxys=368) 0.5 mg/dL 0.2-1.2 BILIRUBIN DIRECT (BEAKER) (test qylp=668) 0.3 mg/dL 0.1-0.5 ALKALINE PHOSPHATASE (BEAKER) (test orxg=223) 164 U/L 40-150 AST (SGOT) (BEAKER) (test hlhz=943) 170 U/L 5-34 ALT (SGPT) (BEAKER) (test pcax=697) 74 U/L 6-55 BASIC METABOLIC [id number] 05:39:00 Test Item Value Reference Range Comments SODIUM (BEAKER) (test 141 meq/L 136-145 yblz=310) POTASSIUM (BEAKER) (test 3.9 meq/L 3.5-5.1 gebc=978) CHLORIDE (BEAKER) (test 110 meq/L 98-107 qgow=927) CO2 (BEAKER) (test 25 meq/L 22-29 yjcn=503) BLOOD UREA NITROGEN 6 mg/dL 7-21 (BEAKER) (test yiae=097) CREATININE (BEAKER) (test 0.84 mg/dL 0.57-1.25 sdnt=007) GLUCOSE RANDOM (BEAKER) 122 mg/dL 70-105 (test bqlx=768) CALCIUM (BEAKER) (test 8.8 mg/dL 8.4-10.2 caqw=266) EGFR (BEAKER) (test 65 mL/min/1.73 sq m ESTIMATED GFR IS NOT pfbr=1450) ACCURATE CREATININE CLEARANCE IN PREDICTING GLOMERULAR FILTRATION RATE. ESTIMATED GFR IS NOT APPLICABLE FOR DIALYSIS PATIENTS. HEPATIC FUNCTION [id number] 10:39:00 Test Item Value Reference Range Comments TOTAL PROTEIN (BEAKER) (test tsvr=139) 6.2 gm/dL 6.0-8.3 ALBUMIN (BEAKER) (test pznp=6833) 3.5 g/dL 3.5-5.0 BILIRUBIN TOTAL (BEAKER) (test bfts=152) 0.5 mg/dL 0.2-1.2 BILIRUBIN DIRECT (BEAKER) (test xuwm=205) 0.3 mg/dL 0.1-0.5 ALKALINE PHOSPHATASE (BEAKER) (test bfse=799) 192 U/L 40-150 AST (SGOT) (BEAKER) (test kwwp=445) 203 U/L 5-34 ALT (SGPT) (BEAKER) (test gqbn=299) 95 U/L 6-55 BASIC METABOLIC [id number] 05:39:00 Test Item Value Reference Range Comments SODIUM (BEAKER) (test 135 meq/L 136-145 xmmq=782) POTASSIUM (BEAKER) (test 3.2 meq/L 3.5-5.1 vrmc=146) CHLORIDE (BEAKER) (test 104 meq/L 98-107 yzje=803) CO2 (BEAKER) (test 25 meq/L 22-29 cwfo=252) BLOOD UREA NITROGEN 20 mg/dL 7-21 (BEAKER) (test usvl=794) CREATININE (BEAKER) (test 1.05 mg/dL 0.57-1.25 gwtt=004) GLUCOSE RANDOM (BEAKER) 156 mg/dL 70-105 (test erfl=218) CALCIUM (BEAKER) (test 8.7 mg/dL 8.4-10.2 vhhw=125) EGFR (BEAKER) (test 51 mL/min/1.73 sq m ESTIMATED GFR IS NOT euqt=3278) ACCURATE CREATININE CLEARANCE IN PREDICTING GLOMERULAR FILTRATION RATE. ESTIMATED GFR IS NOT APPLICABLE FOR DIALYSIS PATIENTS. CBC W/PLT COUNT & AUTO [id number] 04:55:00 Test Item Value Reference Range Comments WHITE BLOOD CELL COUNT (BEAKER) (test ralg=099) 11.1 K/ L 3.5-10.5 RED BLOOD CELL COUNT (BEAKER) (test yilo=530) 3.19 M/ L 3.93-5.22 HEMOGLOBIN (BEAKER) (test ajbf=816) 9.7 GM/DL 11.2-15.7 HEMATOCRIT (BEAKER) (test fuhi=488) 28.2 % 34.1-44.9 MEAN CORPUSCULAR VOLUME (BEAKER) (test kuki=775) 88.4 fL 79.4-94.8 MEAN CORPUSCULAR HEMOGLOBIN (BEAKER) (test 30.4 pg 25.6-32.2 kldq=088) MEAN CORPUSCULAR HEMOGLOBIN CONC (BEAKER) (test 34.4 GM/DL 32.2-35.5 wuko=916) RED CELL DISTRIBUTION WIDTH (BEAKER) (test 12.7 % 11.7-14.4 zlfi=030) PLATELET COUNT (BEAKER) (test qqst=848) 207 K/CU MM 150-450 MEAN PLATELET VOLUME (BEAKER) (test rqzy=563) 9.0 fL 9.4-12.3 NUCLEATED RED BLOOD CELLS (BEAKER) (test 0 /100 WBC 0-0 ndga=481) NEUTROPHILS RELATIVE PERCENT (BEAKER) (test 67 % fgaq=552) LYMPHOCYTES RELATIVE PERCENT (BEAKER) (test 25 % gomq=856) MONOCYTES RELATIVE PERCENT (BEAKER) (test 7 % orhn=425) EOSINOPHILS RELATIVE PERCENT (BEAKER) (test 1 % zahb=925) BASOPHILS RELATIVE PERCENT (BEAKER) (test 0 % hdpi=846) NEUTROPHILS ABSOLUTE COUNT (BEAKER) (test 7.37 K/ L 1.56-6.13 qjac=761) LYMPHOCYTES ABSOLUTE COUNT (BEAKER) (test 2.77 K/ L 1.18-3.74 vchc=545) MONOCYTES ABSOLUTE COUNT (BEAKER) (test 0.81 K/ L 0.24-0.36 fmfq=603) EOSINOPHILS ABSOLUTE COUNT (BEAKER) (test 0.05 K/ L 0.04-0.36 crsd=470) BASOPHILS ABSOLUTE COUNT (BEAKER) (test 0.02 K/ L 0.01-0.08 uudp=896) IMMATURE GRANULOCYTES-RELATIVE PERCENT (BEAKER) 0 % 0-1 (test ocaf=0580) URINALYSIS W/ [id number] 22:01:00 Test Item Value Reference Range Comments COLOR (BEAKER) (test pryf=878) Yellow CLARITY (BEAKER) (test trbr=292) Hazy SPECIFIC GRAVITY UA (BEAKER) (test 1.015 1.001-1.035 iksf=468) PH UA (BEAKER) (test axnh=554) 5.5 5.0-8.0 PROTEIN UA (BEAKER) (test hpzw=726) 30 mg/dL Negative GLUCOSE UA (BEAKER) (test ggik=750) Negative Negative KETONES UA (BEAKER) (test zngh=354) 10 mg/dL Negative BILIRUBIN UA (BEAKER) (test fvrj=059) Negative Negative BLOOD UA (BEAKER) (test abso=390) Negative Negative NITRITE UA (BEAKER) (test acni=574) Negative Negative LEUKOCYTE ESTERASE UA (BEAKER) (test Moderate Negative wcto=364) UROBILINOGEN UA (BEAKER) (test urhk=848) 0.2 mg/dL 0.2-1.0 RBC UA (BEAKER) (test ollk=932) 17 /HPF WBC UA (BEAKER) (test xpcp=382) 7 /HPF MUCUS (BEAKER) (test fjap=1116) Few SQUAMOUS EPITHELIAL (BEAKER) (test 4 /HPF pnut=530) HYALINE CASTS (BEAKER) (test vhtu=617) 17 /LPF SOURCE(BEAKER) (test hucd=4520) Urine, Clean Catch POCT-LACTIC ACID, [id number] 21:41:00 Test Item Value Reference Range Comments POC-LACTIC ACID, VENOUS 1.3 mmol/L 0.9-1.7 TESTED AT [facility] [address] (BEAKER) (test jrgj=0610) [facility] [address] TROPONIN [id number] 20:17:00 Test Item Value Reference Range Comments TROPONIN I (BEAKER) (test gryp=093) 0.02 ng/mL 0.00-0.03 Troponin I (TnI) levels [...] failure, acidosis, acute neurological disease, and persistent tachyarrhythmia.[id number] 20:12:00 Test Item Value Reference Range Comments LIPASE (BEAKER) (test ziam=121) 56 U/L 8-78 [id number] 20:12:00 Test Item Value Reference Range Comments AMYLASE (BEAKER) (test mhhl=100) 90 U/L 25-125 BASIC METABOLIC [id number] 20:12:00 Test Item Value Reference Range Comments SODIUM (BEAKER) (test 135 meq/L 136-145 howl=059) POTASSIUM (BEAKER) (test 3.5 meq/L 3.5-5.1 aylk=787) CHLORIDE (BEAKER) (test 100 meq/L 98-107 umoy=867) CO2 (BEAKER) (test 26 meq/L 22-29 jnyq=264) BLOOD UREA NITROGEN 27 mg/dL 7-21 (BEAKER) (test cfsn=583) CREATININE (BEAKER) (test 1.53 mg/dL 0.57-1.25 pgfz=921) GLUCOSE RANDOM (BEAKER) 135 mg/dL 70-105 (test ynxf=528) CALCIUM (BEAKER) (test 10.2 mg/dL 8.4-10.2 ynqx=826) EGFR (BEAKER) (test 33 mL/min/1.73 sq m ESTIMATED GFR IS NOT cfmx=6541) ACCURATE CREATININE CLEARANCE IN PREDICTING GLOMERULAR FILTRATION RATE. ESTIMATED GFR IS NOT APPLICABLE FOR DIALYSIS PATIENTS. HEPATIC FUNCTION [id number] 20:12:00 Test Item Value Reference Range Comments TOTAL PROTEIN (BEAKER) (test rpoh=041) 8.2 gm/dL 6.0-8.3 ALBUMIN (BEAKER) (test ljrz=0545) 4.5 g/dL 3.5-5.0 BILIRUBIN TOTAL (BEAKER) (test wsyn=351) 1.0 mg/dL 0.2-1.2 BILIRUBIN DIRECT (BEAKER) (test hdqy=968) 0.7 mg/dL 0.1-0.5 ALKALINE PHOSPHATASE (BEAKER) (test ftcc=769) 238 U/L 40-150 AST (SGOT) (BEAKER) (test bpmh=248) 210 U/L 5-34 ALT (SGPT) (BEAKER) (test mwwf=178) 87 U/L 6-55 CBC W/PLT COUNT & AUTO [id number] 19:59:00 Test Item Value Reference Range Comments WHITE BLOOD CELL COUNT (BEAKER) (test lehv=342) 12.1 K/ L 3.5-10.5 RED BLOOD CELL COUNT (BEAKER) (test zicw=260) 3.95 M/ L 3.93-5.22 HEMOGLOBIN (BEAKER) (test cnbw=804) 11.9 GM/DL 11.2-15.7 HEMATOCRIT (BEAKER) (test dbnl=200) 35.5 % 34.1-44.9 MEAN CORPUSCULAR VOLUME (BEAKER) (test pjjj=644) 89.9 fL 79.4-94.8 MEAN CORPUSCULAR HEMOGLOBIN (BEAKER) (test 30.1 pg 25.6-32.2 cfid=588) MEAN CORPUSCULAR HEMOGLOBIN CONC (BEAKER) (test 33.5 GM/DL 32.2-35.5 stsl=399) RED CELL DISTRIBUTION WIDTH (BEAKER) (test 12.8 % 11.7-14.4 ostd=177) PLATELET COUNT (BEAKER) (test okzt=723) 252 K/CU MM 150-450 MEAN PLATELET VOLUME (BEAKER) (test wwjg=716) 8.9 fL 9.4-12.3 NUCLEATED RED BLOOD CELLS (BEAKER) (test 0 /100 WBC 0-0 njvp=370) NEUTROPHILS RELATIVE PERCENT (BEAKER) (test 76 % pkgp=307) LYMPHOCYTES RELATIVE PERCENT (BEAKER) (test 15 % jpne=672) MONOCYTES RELATIVE PERCENT (BEAKER) (test 7 % flmq=678) EOSINOPHILS RELATIVE PERCENT (BEAKER) (test 0 % psuw=817) BASOPHILS RELATIVE PERCENT (BEAKER) (test 0 % ponm=022) NEUTROPHILS ABSOLUTE COUNT (BEAKER) (test 9.18 K/ L 1.56-6.13 vxfs=034) LYMPHOCYTES ABSOLUTE COUNT (BEAKER) (test 1.86 K/ L 1.18-3.74 lirf=121) MONOCYTES ABSOLUTE COUNT (BEAKER) (test 0.87 K/ L 0.24-0.36 pyqo=414) EOSINOPHILS ABSOLUTE COUNT (BEAKER) (test 0.04 K/ L 0.04-0.36 siyc=141) BASOPHILS ABSOLUTE COUNT (BEAKER) (test 0.03 K/ L 0.01-0.08 duds=905) IMMATURE GRANULOCYTES-RELATIVE PERCENT (BEAKER) 1 % 0-1 (test xorw=4642) [id number] 07:40:00 Test Item Value Reference Range Comments PHOSPHORUS (BEAKER) (test kbly=270) 2.6 mg/dL 2.3-4.7 [id number] 07:40:00 Test Item Value Reference Range Comments MAGNESIUM (BEAKER) (test zqzp=422) 2.0 mg/dL 1.6-2.6 BASIC METABOLIC [id number] 07:40:00 Test Item Value Reference Range Comments SODIUM (BEAKER) (test 137 meq/L 136-145 liar=677) POTASSIUM (BEAKER) (test 3.6 meq/L 3.5-5.1 djwu=377) CHLORIDE (BEAKER) (test 104 meq/L 98-107 mtsp=837) CO2 (BEAKER) (test 23 meq/L 22-29 aqll=727) BLOOD UREA NITROGEN 14 mg/dL 7-21 (BEAKER) (test nrcw=382) CREATININE (BEAKER) (test 0.89 mg/dL 0.57-1.25 mlum=454) GLUCOSE RANDOM (BEAKER) 78 mg/dL 70-105 (test mxcf=309) CALCIUM (BEAKER) (test 9.6 mg/dL 8.4-10.2 jogk=199) EGFR (BEAKER) (test 61 mL/min/1.73 sq m ESTIMATED GFR IS NOT kwlw=7704) ACCURATE CREATININE CLEARANCE IN PREDICTING GLOMERULAR FILTRATION RATE. ESTIMATED GFR IS NOT APPLICABLE FOR DIALYSIS PATIENTS. HEPATIC FUNCTION [id number] 07:40:00 Test Item Value Reference Range Comments TOTAL PROTEIN (BEAKER) (test pjyn=895) 6.9 gm/dL 6.0-8.3 ALBUMIN (BEAKER) (test xvve=5316) 3.7 g/dL 3.5-5.0 BILIRUBIN TOTAL (BEAKER) (test pgmn=095) 0.5 mg/dL 0.2-1.2 BILIRUBIN DIRECT (BEAKER) (test extn=145) 0.3 mg/dL 0.1-0.5 ALKALINE PHOSPHATASE (BEAKER) (test ayud=436) 125 U/L 40-150 AST (SGOT) (BEAKER) (test wtoq=012) 213 U/L 5-34 ALT (SGPT) (BEAKER) (test zvjg=651) 105 U/L 6-55 CBC W/PLT COUNT & AUTO [id number] 06:51:00 Test Item Value Reference Range Comments WHITE BLOOD CELL COUNT (BEAKER) (test mpez=480) 9.6 K/ L 3.5-10.5 RED BLOOD CELL COUNT (BEAKER) (test pgre=008) 3.71 M/ L 3.93-5.22 HEMOGLOBIN (BEAKER) (test tpcn=445) 11.1 GM/DL 11.2-15.7 HEMATOCRIT (BEAKER) (test slpk=642) 33.4 % 34.1-44.9 MEAN CORPUSCULAR VOLUME (BEAKER) (test tord=944) 90.0 fL 79.4-94.8 MEAN CORPUSCULAR HEMOGLOBIN (BEAKER) (test 29.9 pg 25.6-32.2 bwai=563) MEAN CORPUSCULAR HEMOGLOBIN CONC (BEAKER) (test 33.2 GM/DL 32.2-35.5 kbsm=187) RED CELL DISTRIBUTION WIDTH (BEAKER) (test 12.8 % 11.7-14.4 etwr=946) PLATELET COUNT (BEAKER) (test vesh=240) 239 K/CU MM 150-450 MEAN PLATELET VOLUME (BEAKER) (test npmc=673) 9.4 fL 9.4-12.3 NUCLEATED RED BLOOD CELLS (BEAKER) (test 0 /100 WBC 0-0 mqfx=475) NEUTROPHILS RELATIVE PERCENT (BEAKER) (test 55 % aiel=555) LYMPHOCYTES RELATIVE PERCENT (BEAKER) (test 36 % mzfm=564) MONOCYTES RELATIVE PERCENT (BEAKER) (test 6 % uuno=795) EOSINOPHILS RELATIVE PERCENT (BEAKER) (test 2 % nrnu=752) BASOPHILS RELATIVE PERCENT (BEAKER) (test 0 % yqey=438) NEUTROPHILS ABSOLUTE COUNT (BEAKER) (test 5.28 K/ L 1.56-6.13 gtil=040) LYMPHOCYTES ABSOLUTE COUNT (BEAKER) (test 3.43 K/ L 1.18-3.74 ykpb=650) MONOCYTES ABSOLUTE COUNT (BEAKER) (test 0.61 K/ L 0.24-0.36 muvy=231) EOSINOPHILS ABSOLUTE COUNT (BEAKER) (test 0.21 K/ L 0.04-0.36 rhen=028) BASOPHILS ABSOLUTE COUNT (BEAKER) (test 0.04 K/ L 0.01-0.08 fxbt=536) IMMATURE GRANULOCYTES-RELATIVE PERCENT (BEAKER) 0 % 0-1 (test oqrl=6380) TROPONIN [id number] 12:48:00 Test Item Value Reference Range Comments TROPONIN I (BEAKER) (test aqmp=990) 0.05 ng/mL 0.00-0.03 Troponin I (TnI) levels [...] acidosis, acute neurological disease, and persistent tachyarrhythmia.HEMOGLOBIN [id number] 09:39:00 Test Item Value Reference Range Comments HEMOGLOBIN A1C (BEAKER) (test jjtc=430) 6.1 % 4.3-6.1 TSH/FREE T4 IF [id number] 07:14:00 Test Item Value Reference Range Comments THYROID STIMULATING HORMONE (BEAKER) (test 3.28 uIU/mL 0.35-4.94 jubn=335) [id number] 06:50:00 Test Item Value Reference Range Comments PHOSPHORUS (BEAKER) (test nlpm=995) 1.8 mg/dL 2.3-4.7 [id number] 06:50:00 Test Item Value Reference Range Comments MAGNESIUM (BEAKER) (test kcrr=965) 1.9 mg/dL 1.6-2.6 BASIC METABOLIC [id number] 06:50:00 Test Item Value Reference Range Comments SODIUM (BEAKER) (test 140 meq/L 136-145 swvp=186) POTASSIUM (BEAKER) (test 3.8 meq/L 3.5-5.1 vuum=653) CHLORIDE (BEAKER) (test 110 meq/L 98-107 igkn=084) CO2 (BEAKER) (test 20 meq/L 22-29 mmcv=223) BLOOD UREA NITROGEN 10 mg/dL 7-21 (BEAKER) (test liwh=214) CREATININE (BEAKER) (test 0.85 mg/dL 0.57-1.25 bpjr=828) GLUCOSE RANDOM (BEAKER) 78 mg/dL 70-105 (test neud=790) CALCIUM (BEAKER) (test 8.9 mg/dL 8.4-10.2 jnmd=758) EGFR (BEAKER) (test 65 mL/min/1.73 sq m ESTIMATED GFR IS NOT vxzx=2215) ACCURATE CREATININE CLEARANCE IN PREDICTING GLOMERULAR FILTRATION RATE. ESTIMATED GFR IS NOT APPLICABLE FOR DIALYSIS PATIENTS. LIPID [id number] 06:50:00 Test Item Value Reference Range Comments TRIGLYCERIDES (BEAKER) (test reuc=224) 64 mg/dL CHOLESTEROL (BEAKER) (test guzm=039) 95 mg/dL HDL CHOLESTEROL (BEAKER) (test epvt=827) 46 mg/dL LDL CHOLESTEROL CALCULATED (BEAKER) (test bwix=207) 36 mg/dL Triglyceride Reference Range: Low Risk <150 Borderline 150- 199 High Risk 200-499 Very High Risk >=500Cholesterol Reference Range: Low Risk <200 Borderline 200-239 High Risk > 240HDL Cholesterol Reference Range: Low Risk >=60 High Risk <40LDL Cholesterol Reference Range: Optimal <100 Near Optimal 100-129 Borderline 130-159 High 160-189 Very High >=190HEPATIC FUNCTION [id number] 06:50:00 Test Item Value Reference Range Comments TOTAL PROTEIN (BEAKER) (test gqti=402) 6.1 gm/dL 6.0-8.3 ALBUMIN (BEAKER) (test xgho=2528) 3.3 g/dL 3.5-5.0 BILIRUBIN TOTAL (BEAKER) (test voio=155) 0.3 mg/dL 0.2-1.2 BILIRUBIN DIRECT (BEAKER) (test tsuy=674) 0.2 mg/dL 0.1-0.5 ALKALINE PHOSPHATASE (BEAKER) (test mkhm=383) 109 U/L 40-150 AST (SGOT) (BEAKER) (test ydxi=818) 270 U/L 5-34 ALT (SGPT) (BEAKER) (test swaj=821) 143 U/L 6-55 [id number] 06:50:00 Test Item Value Reference Range Comments AMYLASE (BEAKER) (test mkqw=225) 44 U/L 25-125 [id number] 06:50:00 Test Item Value Reference Range Comments LIPASE (BEAKER) (test ajla=990) 9 U/L 8-78 C-REACTIVE [id number] 06:50:00 Test Item Value Reference Range Comments C-REACTIVE PROTEIN (BEAKER) (test ouux=990) 3.20 mg/dL 0.00-0.50 CREATINE KINASE (CK), TOTAL AND [id number] 06:50:00 Test Item Value Reference Range Comments CREATINE KINASE TOTAL (BEAKER) (test zuof=463) 189 U/L 29-200 CREATINE KINASE-MB (BEAKER) (test lkgl=028) 3.0 ng/mL 0.0-6.6 CREATINE KINASE-MB INDEX (BEAKER) (test fybb=295) 1.6 % CK-MB Reference Range:<6.7 Normal6.7-10.0 Borderline>10.0 AbnormalTROPONIN [id number] 06:50:00 Test Item Value Reference Range Comments TROPONIN I (BEAKER) (test xjaw=221) 0.10 ng/mL 0.00-0.03 Troponin I (TnI) levels [...] failure, acidosis, acute neurological disease, and persistent tachyarrhythmia.[id number] 06:41:00 Test Item Value Reference Range Comments PROTIME (BEAKER) (test jiwt=996) 16.3 seconds 11.7-14.7 INR (BEAKER) (test yxlw=954) 1.3 <=5.9 PARTIAL THROMBOPLASTIN TIME (BEAKER) (test 39.1 seconds 22.5-36.0 unsx=540) RECOMMENDED COUMADIN/WARFARIN INR THERAPY RANGESSTANDARD DOSE: 2.0 - 3.0 Includes: PROPHYLAXIS forvenous thrombosis, systemic embolization; TREATMENT for venous thrombosis and/or pulmonary embolus.HIGH RISK: Target INR is 2.5-3.5 for patients with mechanical heart valves.CBC W/PLT COUNT & AUTO [id number] 06:32:00 Test Item Value Reference Range Comments WHITE BLOOD CELL COUNT (BEAKER) (test tnbt=196) 9.5 K/ L 3.5-10.5 RED BLOOD CELL COUNT (BEAKER) (test ioue=760) 3.19 M/ L 3.93-5.22 HEMOGLOBIN (BEAKER) (test zxuy=799) 9.6 GM/DL 11.2-15.7 HEMATOCRIT (BEAKER) (test pbuw=340) 29.1 % 34.1-44.9 MEAN CORPUSCULAR VOLUME (BEAKER) (test yiii=414) 91.2 fL 79.4-94.8 MEAN CORPUSCULAR HEMOGLOBIN (BEAKER) (test 30.1 pg 25.6-32.2 zbmr=215) MEAN CORPUSCULAR HEMOGLOBIN CONC (BEAKER) (test 33.0 GM/DL 32.2-35.5 ejlx=694) RED CELL DISTRIBUTION WIDTH (BEAKER) (test 13.1 % 11.7-14.4 nukp=112) PLATELET COUNT (BEAKER) (test hmky=440) 209 K/CU MM 150-450 MEAN PLATELET VOLUME (BEAKER) (test ucbw=853) 9.5 fL 9.4-12.3 NUCLEATED RED BLOOD CELLS (BEAKER) (test 0 /100 WBC 0-0 bqka=393) NEUTROPHILS RELATIVE PERCENT (BEAKER) (test 64 % qgnd=235) LYMPHOCYTES RELATIVE PERCENT (BEAKER) (test 27 % zmst=197) MONOCYTES RELATIVE PERCENT (BEAKER) (test 7 % uqrb=496) EOSINOPHILS RELATIVE PERCENT (BEAKER) (test 1 % gyod=038) BASOPHILS RELATIVE PERCENT (BEAKER) (test 1 % owyq=118) NEUTROPHILS ABSOLUTE COUNT (BEAKER) (test 6.09 K/ L 1.56-6.13 njvx=936) LYMPHOCYTES ABSOLUTE COUNT (BEAKER) (test 2.58 K/ L 1.18-3.74 ucvm=287) MONOCYTES ABSOLUTE COUNT (BEAKER) (test 0.66 K/ L 0.24-0.36 daxo=902) EOSINOPHILS ABSOLUTE COUNT (BEAKER) (test 0.12 K/ L 0.04-0.36 pgwk=170) BASOPHILS ABSOLUTE COUNT (BEAKER) (test 0.05 K/ L 0.01-0.08 vvha=285) IMMATURE GRANULOCYTES-RELATIVE PERCENT (BEAKER) 0 % 0-1 (test wdon=7810) PR, [id number] 14:41:00Reason for exam:->recurrent ruq pain,isolated right biliary systemAddendum BeginsREPORT STATUS:A Addendum Fluoroscopy time: 2.4 minutes Number of exposures performed: 8 Radiation dose (Ka,r): 17.4 mGy Signed: Joe Hidalgo Verified Date/Time : 07/05/2017 14:41:02 Reading Location: [facility] Diagnostic Imaging Reading Room - [place] [id number] EndsAddendum BeginsREPORT STATUS:A Addendum Fluoroscopy time: 2.4 minutes Number of exposures performed: Eight Radiation dose (Ka,r): 17.4 mGy Signed: Joe Hidalgo Verified Date/Time: 07/05/2017 14:37:54 Reading Location: [facility] Diagnostic Imaging Reading Room -[facility] [phone] EndsFINAL REPORT ERCP History provided: Recurrent right upper quadrant pain Comparison exam: 2010 Cholecystectomy clips are evident. Retrograde injection opacifies dilated common bile duct which is only partially opacified with contrast, and normal visualized intrahepatic biliary ducts. On the final image, a stent was placed extending from the upper common duct distally. Signed: [facility]idalgo [facility] Verified Date/Time: 06/04/2017 17:18:22 Reading Location: [address] Radiology Reading Room Electronically signed by: JOE HIDALGO on 2016 02:41 PM
[2019-12-20] MEDS ORDERED: PROMETHAZINE 25 MG TABLET ONE (00:08)
[2019-12-20 01:09] LABS: Urine Blood NEGATIVE (NEG); Urine Glucose NEGATIVE (NEG); Urine Protein NEGATIVE (NEG); Urine Specific Gravity 1.015 (1.005-1.030); Urine pH 5.5 (5.0-7.0)
[2019-12-20 01:30] LABS: Urine Bacteria <20 /HPF (<20); Urine Culture Reflex Order NOT NEEDED; Urine RBC <5 /HPF (NONE SEEN)
--- NOTE | 2019-12-20 02:47 | ER ---
Nurse's Notes [facility] Name: Yoly Howard Age: 79 yrs Sex: Female : 1940 Arrival Date: 12/19/2019 Time: 23:38 Bed 18 Private MD: Alyssa Merritt C Diagnosis: Acute bronchitis;Pneumonia, unspecified organism Presentation: 12/19 23:45 Presenting complaint: Patient states: cough and congestion together with nausea for a wh couple of days now. Transition of care: patient was not received from another setting of care. Onset of symptoms was December 19, 2019. Risk Assessment: Do you want to hurt yourself or someone else? Patient reports no desire to harm self or others. Initial Sepsis Screen: Does the patient meet any 2 criteria? No. Patient's initial sepsis screen is negative. Does the patient have a suspected source of infection? No. Patient's initial sepsis screen is negative. Care prior to arrival: None. 23:45 Method Of Arrival: Ambulatory 23:45 Acuity: JACLYN 3 wh Historical: - Allergies: 12/20 02:56 Codeine; 02:56 Flagyl; 02:56 Levaquin; wh - PMHx: 02:56 abdominal pain; High Cholesterol; Hypertension; Nausea; wh - Immunization history:: Adult Immunizations up to date. - Coronavirus screen:: The patient has NOT traveled to [place] in the past 14 days. - Social history:: Smoking status: Patient/guardian denies using. - Ebola Screening: : Patient negative for fever greater than or equal to 101.5 degrees Fahrenheit, and additional compatible Ebola Virus Disease symptoms Patient denies exposure to infectious person. Screenin:00 Abuse screen: Denies threats or abuse. Denies injuries from another. Nutritional wh screening: No deficits noted. Tuberculosis screening: No symptoms or risk factors identified. Fall Risk None identified. Assessment: 00:00 General: Appears in no apparent distress. Behavior is calm, cooperative, appropriate wh for age. Pain: Denies pain. Neuro: Level of Consciousness is awake, alert, obeys commands, Oriented to person, place, time, situation, Appropriate for age. Cardiovascular: Heart tones S1 S2. Respiratory: Airway is patent Respiratory effort is even, unlabored, Respiratory pattern is regular, symmetrical, Breath sounds are clear bilaterally. GI: Abdomen is flat, non-distended, Abd is soft and non tender X 4 quads. Reports nausea. : No signs and/or symptoms were reported regarding the genitourinary system. EENT: No signs and/or symptoms were reported regarding the EENT system. Derm: Skin is intact, is healthy with good turgor, Skin is pink, warm \T\ dry. normal. Musculoskeletal: Circulation, motion, and sensation intact. 01:30 Reassessment: Patient appears in no apparent distress at this time. No changes from previously documented assessment. Patient and/or family updated on plan of care and expected duration. Pain level reassessed. Patient is alert, oriented x 3, equal unlabored respirations, skin warm/dry/pink. 02:54 Reassessment: Patient appears in no apparent distress at this time. No changes from previously documented assessment. Patient and/or family updated on plan of care and expected duration. Pain level reassessed. Patient is alert, oriented x 3, equal unlabored respirations, skin warm/dry/pink. Patient states feeling better. Patient states symptoms have improved. Vital Signs: 12/19 23:46 BP 154 / 73; Pulse 66; Resp 17; Temp 97.8(O); Pulse Ox 100% on R/A; 12/20 01:15 BP 146 / 71; Pulse 62; Resp 18; Pulse Ox 100% on R/A; 02:45 BP 140 / 68; Pulse 63; Resp 18; Pulse Ox 98% on R/A; ED Course: 12/19 23:38 Patient arrived in ED. es 23:38 Alyssa Merritt MD is Private Physician. es 23:41 Ian Guzman is Primary Nurse. 23:46 Natasha Redman FNP-C is PHCP. snw 23:46 Alexandro Rock MD is Attending Physician. snw 12/20 00:00 Arm band placed on right wrist. 00:00 Patient has correct armband on for positive identification. Placed in gown. Bed in low wh position. Call light in reach. Side rails up X 1. Pulse ox on. NIBP on. 00:04 Flu Sent. 02:46 Alyssa Merritt MD is Referral Physician. snw 02:51 Triage completed. 03:08 No provider procedures requiring assistance completed. Patient did not have IV access wh during this emergency room visit. 07:03 Chest Single View XRAY In Process Unspecified. EDMS 07:37 CT Head Brain wo Cont In Process Unspecified. EDMS 07:[address] In Process Unspecified. EDMS Administered Medications: 00:05 Drug: Phenergan 25 mg Route: PO; 03:07 Follow up: Response: No adverse reaction; Nausea is decreased 03:02 Drug: Zithromax 500 mg Route: PO; 03:07 Follow up: Response: No adverse reaction Outcome: 02:46 Discharge ordered by . snmyah 03:08 Discharged to home ambulatory, with family. 03:08 Condition: stable 03:08 Discharge instructions given to patient, family, Instructed on discharge instructions, follow up and referral plans. medication usage, POC Demonstrated understanding of instructions, follow-up care, medications, POC Prescriptions given X 2. 03:08 Patient left the ED. Signatures: Dispatcher [employer] Natasha Guillen, JEY-C FISH HATCHERY SPECIALIST-CsnNadja Doty Winsy
--- NOTE | 2019-12-20 02:47 | EDPHYS ---
Physician Documentation [facility] Name: Yoly Howard Age: 79 yrs Sex: Female : 1940 Arrival Date: 12/19/2019 Time: 23:38 Bed 18 Private MD: Alyssa Merritt C ED Physician Alexandro Rock HPI: 12/20 00:08 This 79 yrs old Female presents to ER via Unassigned with complaints of snw Nausea, Congestion. 00:08 The patient presents to the emergency department with nausea. Onset: The snw symptoms/episode began/occurred gradually, 1 week(s) ago, and became worse today. Possible causes: unknown. The symptoms are aggravated by nothing. Associated signs and symptoms: Pertinent positives: belching, nausea, Sinus congestion. Severity of symptoms: At their worst the symptoms were moderate. The patient has experienced similar episodes in the past. It is unknown whether or not the patient has recently seen a physician, Sees Dr. Merritt. denies fever. Historical: - Allergies: 02:56 Codeine; wh 02:56 Flagyl; wh 02:56 Levaquin; wh - PMHx: 02:56 abdominal pain; High Cholesterol; Hypertension; Nausea; wh - Immunization history:: Adult Immunizations up to date. - Coronavirus screen:: The patient has NOT traveled to [place] in the past 14 days. - Social history:: Smoking status: Patient/guardian denies using. - Ebola Screening: : Patient negative for fever greater than or equal to 101.5 degrees Fahrenheit, and additional compatible Ebola Virus Disease symptoms Patient denies exposure to infectious person. ROS: 00:05 Constitutional: Negative for fever, chills, and weight loss, Eyes: Negative for injury, snw pain, redness, and discharge, ENT: Negative for injury, pain, and discharge, + "phlegm" Neck: Negative for injury, pain, and swelling, Cardiovascular: Negative for chest pain, palpitations, and edema, Respiratory: Negative for shortness of breath, cough, wheezing, and pleuritic chest pain, Back: Negative for injury and pain, : Negative for injury, bleeding, discharge, and swelling, MS/Extremity: Negative for injury and deformity, Skin: Negative for injury, rash, and discoloration, Neuro: Negative for headache, weakness, numbness, tingling, and seizure. 00:05 Abdomen/GI: Positive for nausea. Exam: 00:03 Constitutional: This is a well developed, well nourished patient who is awake, alert, snw and in no acute distress. Head/Face: Normocephalic, atraumatic. Eyes: Pupils equal round and reactive to light, extra-ocular motions intact. Lids and lashes normal. Conjunctiva and sclera are non-icteric and not injected. Cornea within normal limits. Periorbital areas with no swelling, redness, or edema. ENT: Nares patent. No nasal discharge, no septal abnormalities noted. Tympanic membranes are normal and external auditory canals are clear. Oropharynx with no redness, swelling, or masses, exudates, or evidence of obstruction, uvula midline. Mucous membranes moist. Neck: Trachea midline, no thyromegaly or masses palpated, and no cervical lymphadenopathy. Supple, full range of motion without nuchal rigidity, or vertebral point tenderness. No Meningismus. Chest/axilla: Normal chest wall appearance and motion. Nontender with no deformity. No lesions are appreciated. 00:03 Cardiovascular: Rate: normal, Rhythm: regular, Pulses: no pulse deficits are appreciated, Heart sounds: normal, Edema: is not appreciated, Dialysis shunt: . Vital Signs: 12/19 23:46 BP 154 / 73; Pulse 66; Resp 17; Temp 97.8(O); Pulse Ox 100% on R/A; wh 12/20 01:15 BP 146 / 71; Pulse 62; Resp 18; Pulse Ox 100% on R/A; 02:45 BP 140 / 68; Pulse 63; Resp 18; Pulse Ox 98% on R/A; MDM: 12/19 23:48 Patient medically screened. snw 12/20 00:07 Data reviewed: vital signs, nurses notes. Data interpreted: Pulse oximetry: on room air snw is 100 %. Interpretation: normal. Counseling: I had a detailed discussion with the patient and/or guardian regarding: the historical points, exam findings, and any diagnostic results supporting the discharge/admit diagnosis. 00:07 ED course: pt family states pt takes Cipro "off and on". States today pt took hers snw instead of her lower dosage. . 00:57 ED course: Pt anxious as Sister 1.5 weeks ago of pneumonia and she just had a snw little cough. 01:41 ED course: to CT via WC. snw 02:06 Response to treatment: the patient's symptoms have mildly improved after treatment. snw Special discussion: Based on the history and exam findings, there is no indication for further emergent testing or inpatient evaluation. I discussed with the patient/guardian the need to see the primary care provider for further evaluation of the symptoms. 12/19 23:54 Order name: Flu snw 12/20 00:34 Order name: Influenza Screen (A ; Complete Time: 00:42 EDMS 12/20 01:02 Order name: Urine Microscopic Only ar5 12/20 01:05 Order name: Urine Dipstick--Ancillary (enter results) sp 12/20 01:10 Order name: Urine Dipstick-Ancillary; Complete Time: 01:11 EDMS 12/20 01:30 Order name: Urine Microscopic Only; Complete Time: 01:30 EDMS 12/19 23:54 Order name: Chest Single View XRAY snw 12/20 00:56 Order name: CT Head Brain wo Cont snw 12/20 00:56 Order name: Chest Wo Con CT snw Administered Medications: 00:05 Drug: Phenergan 25 mg Route: PO; 03:07 Follow up: Response: No adverse reaction; Nausea is decreased 03:02 Drug: Zithromax 500 mg Route: PO; 03:07 Follow up: Response: No adverse reaction Disposition: 03:10 Co-signature as Attending Physician, Alexandro Rock MD I agree with the assessment and alfie plan of care. Disposition: 12/20/19 02:46 Discharged to Home. Impression: Acute bronchitis, Pneumonia, unspecified organism. - Condition is Stable. - Discharge Instructions: Acute Bronchitis, Adult, Community-Acquired Pneumonia, Adult, Cough, Adult, Rehydration, Elderly. - Prescriptions for Zithromax 500 mg Oral Tablet - take 1 tablet by ORAL route once daily for 5 days; 5 tablet. promethazine 25 mg Oral Tablet - take 1 tablet by ORAL route every 6 hours As needed; 20 tablet. - Medication Reconciliation Form, Thank You Letter, Antibiotic Education, Prescription Opioid Use form. - Follow up: A Merritt; When: 1 - 2 days; Reason: Recheck today's complaints, Continuance of care, Re-evaluation by your physician. Follow up: Emergency Department; When: As needed; Reason: Worsening of condition. Signatures: Dispatcher [employer] EDMS Alexandro Rock MD MD cha Therrien, Shelly, ENVIRONMENT ARTIST-C ENVIRONMENT ARTIST-Ian Gilmore Corrections: (The following items were deleted from the chart) 00:06 00:05 Constitutional: Negative for fever, chills, and weight loss, Eyes: Negative for snw injury, pain, redness, and discharge, ENT: Negative for injury, pain, and discharge, Neck: Negative for injury, pain, and swelling, Respiratory: Negative for shortness of breath, cough, wheezing, and pleuritic chest pain, Back: Negative for injury and pain, : Negative for injury, bleeding, discharge, and swelling, MS/Extremity: Negative for injury and deformity, Skin: Negative for injury, rash, and discoloration, Neuro: Negative for headache, weakness, numbness, tingling, and seizure, snw 00:06 00:05 Cardiovascular: Positive for chest pain, snw snw 00:07 00:03 Cardiovascular: Rate: normal, Rhythm: regular, Pulses: no pulse deficits are snw appreciated, Heart sounds: normal, Edema: 2+ edema to level of , + lymphedema, snw :07 00:03 ECG was reviewed by the Attending Physician. snw snw : 00:03 Rate is 87 beats/min. Rhythm is regular. GA interval is normal. QRS interval is snw normal. QT interval is normal. Clinical impression: NSR w/ Non-specific ST/T Changes. snw 03:08 02:46 12/20/2019 02:46 Discharged to Home. Impression: Acute bronchitis; Pneumonia, wh unspecified organism. Condition is Stable. Discharge Instructions: Acute Bronchitis, Adult, Sinusitis, Adult, Cough, Adult, Rehydration, Elderly. Prescriptions for Zithromax 500 mg Oral Tablet - take 1 tablet by ORAL route once daily for 5 days; 5 tablet. and Forms are Medication Reconciliation Form, Thank You Letter, Antibiotic Education, Prescription Opioid Use. Follow up: A Merritt; When: 1 - 2 days; Reason: Recheck today's complaints, Continuance of care, Re-evaluation by your physician. Follow up: Emergency Department; When: As needed; Reason: Worsening of condition. snw
[2019-12-20] MEDS ORDERED: AZITHROMYCIN 250 MG TAB ONE (03:06)
[2019-12-20 03:37] VITALS: TEMP 97.8
[2019-12-20 03:40] VITALS: BP 140/68; O2SAT 98
--- NOTE | 2019-12-20 09:55 | RAD REPORT ---
EXAM DESCRIPTION: Adali Single View12/20/2019 12:36 am CLINICAL HISTORY: Cough COMPARISON: 2017 FINDINGS: Mild reticulonodular opacities right middle lobe and lingula. The remainder of the lungs appear clear of acute infiltrate. The heart is normal size IMPRESSION: Mild bilateral reticulonodular opacities may indicate an atypical pneumonia
--- NOTE | 2019-12-21 11:18 | RAD REPORT ---
EXAM DESCRIPTION: CT - Thorax Wo Con - 12/20/2019 4:30 am CLINICAL HISTORY: 79-year-old female with cough and choking TECHNIQUE: Axial CT imaging of the chest was performed without intravenous contrast. Sagittal and coronal reconstructed images were then performed. The CT study is performed according to ALARA (as lo w as reasonably achievable) or ALARA/IMAGE GENTLY, with automatic adjustment of mA and/or kV accordin g to patient size. Performed on: 12/20/2019 at 2:02 AM COMPARISON: None. FINDINGS: CT CHEST: Lungs: The lungs are well expanded. There is mild pleural parenchymal opacification in the lung apice s likely related to chronic apical scarring. There are scattered areas of fibrosis and/or atelectasis bilaterally. Occasional tree-in-bud opacities are present bilaterally which may be related to chroni c bronchiolitis. There is a small area of airspace consolidation in the lingula with air bronchograms which may reflect an acute pneumonic infiltrate. There is no evidence of a pneumothorax. There are n o pleural effusions. There are minimal centrilobular emphysematous changes in the lung apices. The ce ntral airways are patent. Heart: The heart is normal in size. There is no pericardial effusion. Mediastinum: The mediastinum is unremarkable. The mediastinal vessels are normal in caliber and con tour. There are mild atherosclerotic calcifications along the thoracic aorta and proximal great vesse ls. Bones: No acute osseous abnormalities are identified. Soft tissues: No focal soft tissue abnormalities are identified. Lymphadenopathy: No pathologic hilar, mediastinal or axillary lymphadenopathy is identified. There are small calcified mediastinal lymph nodes. Upper abdomen: The visualized upper abdomen reveals pneumobilia. There are surgical clips in the radhika on of the gallbladder fossa. There is a partially calcified mass along the posterior right hepatic lo be. There are splenic granulomas present. IMPRESSION: 1. Small area of airspace consolidation in the lingula with air bronchograms possibly representing an acute pneumonic infiltrate. 2. Scattered areas of fibrosis and/or atelectasis bilaterally with occasional tree-in-bud opacities which may be related to chronic bronchiolitis. 3. Minimal centrilobular emphysematous changes in the lung apices. 4. Evidence of prior granulomatous disease. 5. Pneumobilia and surgical clips in the region of the gallbladder fossa with a partially calcified m ass along the posterior right hepatic lobe, likely chronic in nature. Correlate with clinical history and prior imaging studies if available. Electronically signed by: Frances Burks DO 12/20/2019 2:40 AM FIRE INVESTIGATION MANAGER Due to temporary technical issues with the PACS/Fluency reporting system, reports are being signed by the in house radiologist as a courtesy to ensure prompt reporting. The interpreting radiologist is f ully responsible for the content of the report.
--- NOTE | 2019-12-21 11:21 | RAD REPORT ---
EXAM DESCRIPTION: CT - Head Brain Wo Cont - 12/20/2019 4:29 am CLINICAL HISTORY: 79-year-old female with nausea and congestion x1 week, becoming worse today TECHNIQUE: Multiple axial CT images of the brain were performed followed by sagittal and coronal rec onstructed images. The CT study is performed according to ALARA (as low as reasonably achievable) or ALARA/IMAGE GENTLY, with automatic adjustment of mA and/or kV according to patient size. Performed on: 12/20/2019 at 1:40 AM COMPARISON: None. FINDINGS: There is no evidence of mass, acute mass effect or midline shift. There are no acute extra -axial fluid collections. There is no evidence of acute intracranial hemorrhage. The cerebral sulci and ventricles are prominent consistent with mild cerebral volume loss. There are scattered areas of decreased attenuation within the subcortical and periventricular white m atter most likely due to mild chronic microangiopathy. There is no significant mucosal thickening of the paranasal sinuses. The mastoid air cells are clear. The orbital contents are grossly unremarkable. No acute osseous abnormalities are identified. No focal soft tissue abnormalities are identified. IMPRESSION: 1. There is no evidence of acute intracranial pathology. 2. Mild cerebral atrophy with findings consistent with mild chronic microangiopathy. Electronically signed by: Frances Burks DO 12/20/2019 2:23 AM BRICKLAYER HELPER Due to temporary technical issues with the PACS/Fluency reporting system, reports are being signed by the in house radiologist as a courtesy to ensure prompt reporting. The interpreting radiologist is f ully responsible for the content of the report.
== END 2019-12-20 03:08 | disposition home or self-care (01) ==
LOC: ER 23:35
DX: J20.9 Acute bronchitis, unspecified (principal); J18.9 Pneumonia, unspecified organism; I10 Essential (primary) hypertension; Z88.1 Allergy status to other antibiotic agents; Z88.5 Allergy status to narcotic agent; Z88.8 Allergy status to other drugs, medicaments and biological substances
CPT/HCPCS: 70450; 71045; 71250; 81003; 81015; 87804; 99284; Q0169

== ENCOUNTER 2020-06-22 13:49 | Emergency (ER) | payer OTHER ==
--- OUTSIDE RECORDS SUMMARY | 2020-06-22 13:52 | XMS REPORT | Continuity of Care Document ---
:1940 Author Organization [facility] t Address [address] [place] [address] Care Team Providers Name Role Phone Barry Merritt MD Primary Care Physician VICTORIA Attending Clinician Unavailable BRITTA BOONE Attending Clinician Unavailable JOLENE TAYLOR Admitting Clinician Unavailable BRITTA BOONE Admitting Clinician Unavailable Payers Payer Name Policy Type Policy Number Effective Date Expiration Date S ource Problems Condition Condition Condition Status Onset Resolution Last Treating Co mments Source Name Details Category Date Date Treatment Clinician Date Nausea and Nausea and Disease Active [facility] vomiting, vomiting, 06-23 [facility] - intractabi intractabi 00:00: Me dical lity of lity of 00 Center vomiting vomiting not not specified, specified, unspecifie unspecifie d vomiting d vomiting type type Hypothyroi Hypothyroi Disease Active [facility] dism dism 06[facility]20 [facility] Transamini Transamini Disease Active [facility] tis tis 06-20 [facility] 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, cbd, 06-20 [facility] - acquired acquired 00:00: Medica l 00 Center RUQ RUQ Disease Active [facility] abdominal abdominal 06-19 [facility] - pain pain 00:00: Medical 00 Center Essential Essential Disease Active [facility] hypertensi hypertensi 06-19 Jessica kes - on on 00:00: Medical 00 [place] Abnormal Abnormal Disease [facility] liver [facility] - enzymes enzymes 00:00: Medical 00 Center Allergies, Adverse Reactions, Alerts Allergy Allergy Status Severity Reaction(s) Onset Inactive Treating Comm ents Source Name Type Date Date Clinician Levoflox Propensi Active Nausea And headache [facility] to Vomiting, 06-23 [facility] - adverse Other (See 00:00: Medic al reaction Comments) 00 Cent[facility] r s Codeine Propensi Active Can't [facility] ty to 05-29 recall [facility] - adverse 00:00: reaction. Medica l reaction 00 [place] s Metronid Propensi Active Nausea And headache [facility] azole ty to Vomiting 05-29 [facility] - adverse 00:00: Medical reaction 00 [place] s Social History Social Habit Start Date Stop Date Quantity Comments Source History of tobacco [facility] At [facility] Cigarettes smoked 2018-06-23 2018-06-23 [facility] - current (pack per 00:00:00 00:00:00 Medical Center day) - Reported Cigarette 2018-06-23 2018-06-23 [facility] - pack-years 00:00:00 00:00:00 [facility] Smoking Status Start Date Stop Date Source Former smoker 2018-06-23 00:00:00 2018-06-23 00:00:00 [facility] Medications Ordered Filled Start Stop Current Ordering Indication Dosage Frequency Signature Comments Components Source Medication Medication Date Date Medication? Clinician (SIG) Name Name simvastatin Yes 20mg QD Take [address] [facility] (ZOCOR) 20 8-29 tablet (20 [facility] - MG tablet 00:00: mg total) Med ical 00 by mouth Center nightly Either you take pravastati n or simvastati n for cholestero l but not both. promethazin Yes 12.5mg Take [address] e 8-25 tablet [facility] - (PHENERGAN) 00:00: (12.5 mg Me dical 12.5 MG 00 total) by Center tablet mouth every 6 (six) hours as needed for Nausea. levothyroxi Yes 50ug Take [address] [facility] [address] ne 8-23 mcg by [facility] - (SYNTHROID, 22:04: mouth Medic al LEVOTHROID) 46 Every Center 50 MCG morning on tablet an empty stomach 1/2. calcium Yes 600mg Take [facility] carbonate/v 8-23 mg by [facility] - itamin D3 22:04: mouth. Medica l (CALTRATE 46 Center WITH VITAMIN D3 ORAL) amLODIPine Yes 5mg QD Take [address] (NORVASC) 5 8-23 by mouth [facility] - MG tablet 22:04: daily. Medica l 46 Center OMEPRAZOLE 2017 Yes 1{tbl} QD Take [address] [facility] [address] ORAL 8-08 tablet by [facility] - 13:49: mouth Medical 57 daily . Center metoprolol Yes 25mg QD Take [address] (TOPROL-XL) 8-02 by mouth [facility] - 25 MG 24 hr 14:01: daily. Medi katie tablet 07 Center sucralfate Yes 1g Q.25D Take [address] (CARAFATE) 8-02 by mouth 4 [facility] - 1 gram 14:01: (four) Medical tablet 06 times Center daily. aspirin 325 Yes 325mg QD Take [address] MG EC 8-02 mg by [facility] - tablet 14:01: mouth Medical 06 daily. Center ondansetron Yes 4mg Take [address] (ZOFRAN) 4 8-02 by mouth 2 [facility] - MG tablet 14:01: (two) Medical 06 times Center daily as needed for Nausea. Procedures This patient has no known procedures. Results Test Description Test Time Test Comments Results Result Comments Source BLOOD CULTURE 2018-06-29 06:00:00 Test Item Value Reference Range Interpretation Comme nts CULTURE (BEAKER) (test code = 1095) No growth in 5 days BLOOD [id number] 06:00:00 Test Item Value Reference Range Interpretation Comments CULTURE (BEAKER) (test No growth in 5 days code = 1095) CBC W/PLT COUNT & AUTO [id number] 05:48:00 Test Item Value Reference Range Interpretation Comments WHITE BLOOD CELL COUNT ([facility]) 8.0 K/ L 3.5-10.5 (test code = 775) RED BLOOD CELL COUNT ([facility]) 3.37 M/ L 3.93-5.22 L (test code = 761) HEMOGLOBIN (BEAKER) (test code = 10.1 GM/DL 11.2-15.7 L 410) HEMATOCRIT (BEAKER) (test code = 30.4 % 34.1-44.9 L 411) MEAN CORPUSCULAR VOLUME (BEAKER) 90.2 fL 79.4-94.8 (test code = 753) MEAN CORPUSCULAR HEMOGLOBIN 30.0 pg 25.6-32.2 (BEAKER) (test code = 751) MEAN CORPUSCULAR HEMOGLOBIN CONC 33.2 GM/DL 32.2-35.5 (BEAKER) (test code = 752) RED CELL DISTRIBUTION WIDTH 13.1 % 11.7-14.4 (BEAKER) (test code = 412) PLATELET COUNT (BEAKER) (test 215 K/CU MM 150-450 code = 756) MEAN PLATELET VOLUME (BEAKER) 9.2 fL 9.4-12.3 L (test code = 754) NUCLEATED RED BLOOD CELLS 0 /100 WBC 0-0 (BEAKER) (test code = 413) NEUTROPHILS RELATIVE PERCENT 43 % (BEAKER) (test code = 429) LYMPHOCYTES RELATIVE PERCENT 48 % (BEAKER) (test code = 430) MONOCYTES RELATIVE PERCENT 7 % (BEAKER) (test code = 431) EOSINOPHILS RELATIVE PERCENT 2 % (BEAKER) (test code = 432) BASOPHILS RELATIVE PERCENT 0 % (BEAKER) (test code = 437) NEUTROPHILS ABSOLUTE COUNT 3.41 K/ L 1.56-6.13 (BEAKER) (test code = 670) LYMPHOCYTES ABSOLUTE COUNT 3.82 K/ L 1.18-3.74 H (BEAKER) (test code = 414) MONOCYTES ABSOLUTE COUNT (BEAKER) 0.52 K/ L 0.24-0.36 H (test code = 415) EOSINOPHILS ABSOLUTE COUNT 0.16 K/ L 0.04-0.36 (BEAKER) (test code = 416) BASOPHILS ABSOLUTE COUNT (BEAKER) 0.03 K/ L 0.01-0.08 (test code = 417) IMMATURE GRANULOCYTES-RELATIVE 1 % 0-1 PERCENT (BEAKER) (test code = 2801) HEPATIC FUNCTION [id number] 05:39:00 Test Item Value Reference Range Interpretation Comments TOTAL PROTEIN (BEAKER) (test code = 6.3 gm/dL 6.0-8.3 770) ALBUMIN (BEAKER) (test code = 1145) 3.4 g/dL 3.5-5.0 L BILIRUBIN TOTAL (BEAKER) (test code 0.5 mg/dL 0.2-1.2 = 377) BILIRUBIN DIRECT (BEAKER) (test 0.3 mg/dL 0.1-0.5 code = 706) ALKALINE PHOSPHATASE (BEAKER) (test 164 U/L 40-150 H code = 346) AST (SGOT) (BEAKER) (test code = 170 U/L 5-34 H 353) ALT (SGPT) (BEAKER) (test code = 74 U/L 6-55 H 347) BASIC METABOLIC [id number] 05:39:00 Test Item Value Reference Range Interpretation Comments SODIUM (BEAKER) 141 meq/L 136-145 (test code = 381) POTASSIUM (BEAKER) 3.9 meq/L 3.5-5.1 (test code = 379) CHLORIDE (BEAKER) 110 meq/L 98-107 H (test code = 382) CO2 (BEAKER) (test 25 meq/L 22-29 code = 355) BLOOD UREA NITROGEN 6 mg/dL 7-21 L (BEAKER) (test code = 354) CREATININE (BEAKER) 0.84 mg/dL 0.57-1.25 (test code = 358) GLUCOSE RANDOM 122 mg/dL 70-105 H (BEAKER) (test code = 652) CALCIUM (BEAKER) 8.8 mg/dL 8.4-10.2 (test code = 697) EGFR (BEAKER) (test 65 mL/min/1.73 ESTIMA JOSETTE GFR IS code = 1092) sq m NOT ACCURATE CREATININE CLEARANCE IN PREDICTING GLOMERULAR FILTRATION RATE . ESTIMATED GFR I S NOT APPLICABLE FOR DIALYSIS PATIEN TS. HEPATIC FUNCTION [id number] 10:39:00 Test Item Value Reference Range Interpretation Comments TOTAL PROTEIN (BEAKER) (test code = 6.2 gm/dL 6.0-8.3 770) ALBUMIN (BEAKER) (test code = 1145) 3.5 g/dL 3.5-5.0 BILIRUBIN TOTAL (BEAKER) (test code 0.5 mg/dL 0.2-1.2 = 377) BILIRUBIN DIRECT (BEAKER) (test 0.3 mg/dL 0.1-0.5 code = 706) ALKALINE PHOSPHATASE (BEAKER) (test 192 U/L 40-150 H code = 346) AST (SGOT) (BEAKER) (test code = 203 U/L 5-34 H 353) ALT (SGPT) (BEAKER) (test code = 95 U/L 6-55 H 347) BASIC METABOLIC [id number] 05:39:00 Test Item Value Reference Range Interpretation Comments SODIUM (BEAKER) 135 meq/L 136-145 L (test code = 381) POTASSIUM (BEAKER) 3.2 meq/L 3.5-5.1 L (test code = 379) CHLORIDE (BEAKER) 104 meq/L 98-107 (test code = 382) CO2 (BEAKER) (test 25 meq/L 22-29 code = 355) BLOOD UREA NITROGEN 20 mg/dL 7-21 (BEAKER) (test code = 354) CREATININE (BEAKER) 1.05 mg/dL 0.57-1.25 (test code = 358) GLUCOSE RANDOM 156 mg/dL 70-105 H (BEAKER) (test code = 652) CALCIUM (BEAKER) 8.7 mg/dL 8.4-10.2 (test code = 697) EGFR (BEAKER) (test 51 mL/min/1.73 ESTIMA JOSETTE GFR IS code = 1092) sq m NOT ACCURATE CREATININE CLEARANCE IN PREDICTING GLOMERULAR FILTRATION RATE . ESTIMATED GFR I S NOT APPLICABLE FOR DIALYSIS PATIEN TS. CBC W/PLT COUNT & AUTO [id number] 04:55:00 Test Item Value Reference Range Interpretation Comments WHITE BLOOD CELL COUNT (BEAKER) 11.1 K/ L 3.5-10.5 H (test code = 775) RED BLOOD CELL COUNT (BEAKER) 3.19 M/ L 3.93-5.22 L (test code = 761) HEMOGLOBIN (BEAKER) (test code = 9.7 GM/DL 11.2-15.7 L 410) HEMATOCRIT (BEAKER) (test code = 28.2 % 34.1-44.9 L 411) MEAN CORPUSCULAR VOLUME (BEAKER) 88.4 fL 79.4-94.8 (test code = 753) MEAN CORPUSCULAR HEMOGLOBIN 30.4 pg 25.6-32.2 (BEAKER) (test code = 751) MEAN CORPUSCULAR HEMOGLOBIN CONC 34.4 GM/DL 32.2-35.5 (BEAKER) (test code = 752) RED CELL DISTRIBUTION WIDTH 12.7 % 11.7-14.4 (BEAKER) (test code = 412) PLATELET COUNT (BEAKER) (test 207 K/CU MM 150-450 code = 756) MEAN PLATELET VOLUME (BEAKER) 9.0 fL 9.4-12.3 L (test code = 754) NUCLEATED RED BLOOD CELLS 0 /100 WBC 0-0 (BEAKER) (test code = 413) NEUTROPHILS RELATIVE PERCENT 67 % (BEAKER) (test code = 429) LYMPHOCYTES RELATIVE PERCENT 25 % (BEAKER) (test code = 430) MONOCYTES RELATIVE PERCENT 7 % (BEAKER) (test code = 431) EOSINOPHILS RELATIVE PERCENT 1 % (BEAKER) (test code = 432) BASOPHILS RELATIVE PERCENT 0 % (BEAKER) (test code = 437) NEUTROPHILS ABSOLUTE COUNT 7.37 K/ L 1.56-6.13 H (BEAKER) (test code = 670) LYMPHOCYTES ABSOLUTE COUNT 2.77 K/ L 1.18-3.74 (BEAKER) (test code = 414) MONOCYTES ABSOLUTE COUNT (BEAKER) 0.81 K/ L 0.24-0.36 H (test code = 415) EOSINOPHILS ABSOLUTE COUNT 0.05 K/ L 0.04-0.36 (BEAKER) (test code = 416) BASOPHILS ABSOLUTE COUNT (BEAKER) 0.02 K/ L 0.01-0.08 (test code = 417) IMMATURE GRANULOCYTES-RELATIVE 0 % 0-1 PERCENT (BEAKER) (test code = 2801) URINALYSIS W/ [id number] 22:01:00 Test Item Value Reference Range Interpretation Comments COLOR (BEAKER) (test code Yellow = 470) CLARITY (BEAKER) (test Hazy code = 469) SPECIFIC GRAVITY UA 1.015 1.001-1.035 (BEAKER) (test code = 468) PH UA (BEAKER) (test code 5.5 5.0-8.0 = 467) PROTEIN UA (BEAKER) (test 30 mg/dL Negative A code = 464) GLUCOSE UA (BEAKER) (test Negative Negative code = 365) KETONES UA (BEAKER) (test 10 mg/dL Negative A code = 371) BILIRUBIN UA (BEAKER) Negative Negative (test code = 462) BLOOD UA (BEAKER) (test Negative Negative code = 461) NITRITE UA (BEAKER) (test Negative Negative code = 465) LEUKOCYTE ESTERASE UA Moderate Negative A (BEAKER) (test code = 466) UROBILINOGEN UA (BEAKER) 0.2 mg/dL 0.2-1.0 (test code = 463) RBC UA (BEAKER) (test code 17 /HPF = 519) WBC UA (BEAKER) (test code 7 /HPF = 520) MUCUS (BEAKER) (test code Few = 1574) SQUAMOUS EPITHELIAL 4 /HPF (BEAKER) (test code = 516) HYALINE CASTS (BEAKER) 17 /LPF (test code = 514) SOURCE(BEAKER) (test code Urine, Clean Catch = 8085) POCT-LACTIC ACID, [id number] 21:41:00 Test Item Value Reference Range Interpretation Comments POC-LACTIC ACID, 1.3 mmol/L 0.9-1.7 TESTED AT [facility] [address] (BEAKER) (test [facility] Cristian [place] code = 2805) [address] TROPONIN [id number] 20:17:00 Test Item Value Reference Range Interpretation Comments TROPONIN I (BEAKER) (test code = 0.02 ng/mL 0.00-0.03 397) Troponin I (TnI) levels must be interpreted [...] failure, acidosis, acute neurological disease, and persistent tachyarrhythmia.[id number] 20:12:00 Test Item Value Reference Range Interpretation Comments LIPASE (BEAKER) (test code = 749) 56 U/L 8-78 [id number] 20:12:00 Test Item Value Reference Range Interpretation Comments AMYLASE (BEAKER) (test code = 349) 90 U/L 25-125 BASIC METABOLIC [id number] 20:12:00 Test Item Value Reference Range Interpretation Comments SODIUM (BEAKER) 135 meq/L 136-145 L (test code = 381) POTASSIUM (BEAKER) 3.5 meq/L 3.5-5.1 (test code = 379) CHLORIDE (BEAKER) 100 meq/L 98-107 (test code = 382) CO2 (BEAKER) (test 26 meq/L 22-29 code = 355) BLOOD UREA NITROGEN 27 mg/dL 7-21 H (BEAKER) (test code = 354) CREATININE (BEAKER) 1.53 mg/dL 0.57-1.25 H (test code = 358) GLUCOSE RANDOM 135 mg/dL 70-105 H (BEAKER) (test code = 652) CALCIUM (BEAKER) 10.2 mg/dL 8.4-10.2 (test code = 697) EGFR (BEAKER) (test 33 mL/min/1.73 ESTIMA JOSETTE GFR IS code = 1092) sq m NOT ACCURATE CREATININE CLEARANCE IN PREDICTING GLOMERULAR FILTRATION RATE . ESTIMATED GFR I S NOT APPLICABLE FOR DIALYSIS PATIEN TS. HEPATIC FUNCTION [id number] 20:12:00 Test Item Value Reference Range Interpretation Comments TOTAL PROTEIN (BEAKER) (test code = 8.2 gm/dL 6.0-8.3 770) ALBUMIN (BEAKER) (test code = 1145) 4.5 g/dL 3.5-5.0 BILIRUBIN TOTAL (BEAKER) (test code 1.0 mg/dL 0.2-1.2 = 377) BILIRUBIN DIRECT (BEAKER) (test 0.7 mg/dL 0.1-0.5 H code = 706) ALKALINE PHOSPHATASE (BEAKER) (test 238 U/L 40-150 H code = 346) AST (SGOT) (BEAKER) (test code = 210 U/L 5-34 H 353) ALT (SGPT) (BEAKER) (test code = 87 U/L 6-55 H 347) CBC W/PLT COUNT & AUTO [id number] 19:59:00 Test Item Value Reference Range Interpretation Comments WHITE BLOOD CELL COUNT (BEAKER) 12.1 K/ L 3.5-10.5 H (test code = 775) RED BLOOD CELL COUNT (BEAKER) 3.95 M/ L 3.93-5.22 (test code = 761) HEMOGLOBIN (BEAKER) (test code = 11.9 GM/DL 11.2-15.7 410) HEMATOCRIT (BEAKER) (test code = 35.5 % 34.1-44.9 411) MEAN CORPUSCULAR VOLUME (BEAKER) 89.9 fL 79.4-94.8 (test code = 753) MEAN CORPUSCULAR HEMOGLOBIN 30.1 pg 25.6-32.2 (BEAKER) (test code = 751) MEAN CORPUSCULAR HEMOGLOBIN CONC 33.5 GM/DL 32.2-35.5 (BEAKER) (test code = 752) RED CELL DISTRIBUTION WIDTH 12.8 % 11.7-14.4 (BEAKER) (test code = 412) PLATELET COUNT (BEAKER) (test 252 K/CU MM 150-450 code = 756) MEAN PLATELET VOLUME (BEAKER) 8.9 fL 9.4-12.3 L (test code = 754) NUCLEATED RED BLOOD CELLS 0 /100 WBC 0-0 (BEAKER) (test code = 413) NEUTROPHILS RELATIVE PERCENT 76 % (BEAKER) (test code = 429) LYMPHOCYTES RELATIVE PERCENT 15 % (BEAKER) (test code = 430) MONOCYTES RELATIVE PERCENT 7 % (BEAKER) (test code = 431) EOSINOPHILS RELATIVE PERCENT 0 % (BEAKER) (test code = 432) BASOPHILS RELATIVE PERCENT 0 % (BEAKER) (test code = 437) NEUTROPHILS ABSOLUTE COUNT 9.18 K/ L 1.56-6.13 H (BEAKER) (test code = 670) LYMPHOCYTES ABSOLUTE COUNT 1.86 K/ L 1.18-3.74 (BEAKER) (test code = 414) MONOCYTES ABSOLUTE COUNT (BEAKER) 0.87 K/ L 0.24-0.36 H (test code = 415) EOSINOPHILS ABSOLUTE COUNT 0.04 K/ L 0.04-0.36 (BEAKER) (test code = 416) BASOPHILS ABSOLUTE COUNT (BEAKER) 0.03 K/ L 0.01-0.08 (test code = 417) IMMATURE GRANULOCYTES-RELATIVE 1 % 0-1 PERCENT (BEAKER) (test code = 2801) [id number] 07:40:00 Test Item Value Reference Range Interpretation Comments PHOSPHORUS (BEAKER) (test code = 2.6 mg/dL 2.3-4.7 604) [id number] 07:40:00 Test Item Value Reference Range Interpretation Comments MAGNESIUM (BEAKER) (test code = 2.0 mg/dL 1.6-2.6 627) BASIC METABOLIC [id number] 07:40:00 Test Item Value Reference Range Interpretation Comments SODIUM (BEAKER) 137 meq/L 136-145 (test code = 381) POTASSIUM (BEAKER) 3.6 meq/L 3.5-5.1 (test code = 379) CHLORIDE (BEAKER) 104 meq/L 98-107 (test code = 382) CO2 (BEAKER) (test 23 meq/L 22-29 code = 355) BLOOD UREA NITROGEN 14 mg/dL 7-21 (BEAKER) (test code = 354) CREATININE (BEAKER) 0.89 mg/dL 0.57-1.25 (test code = 358) GLUCOSE RANDOM 78 mg/dL 70-105 (BEAKER) (test code = 652) CALCIUM (BEAKER) 9.6 mg/dL 8.4-10.2 (test code = 697) EGFR (BEAKER) (test 61 mL/min/1.73 ESTIMA JOSETTE GFR IS code = 1092) sq m NOT ACCURATE CREATININE CLEARANCE IN PREDICTING GLOMERULAR FILTRATION RATE . ESTIMATED GFR I S NOT APPLICABLE FOR DIALYSIS PATIEN TS. HEPATIC FUNCTION [id number] 07:40:00 Test Item Value Reference Range Interpretation Comments TOTAL PROTEIN (BEAKER) (test code = 6.9 gm/dL 6.0-8.3 770) ALBUMIN (BEAKER) (test code = 1145) 3.7 g/dL 3.5-5.0 BILIRUBIN TOTAL (BEAKER) (test code 0.5 mg/dL 0.2-1.2 = 377) BILIRUBIN DIRECT (BEAKER) (test 0.3 mg/dL 0.1-0.5 code = 706) ALKALINE PHOSPHATASE (BEAKER) (test 125 U/L 40-150 code = 346) AST (SGOT) (BEAKER) (test code = 213 U/L 5-34 H 353) ALT (SGPT) (BEAKER) (test code = 105 U/L 6-55 H 347) CBC W/PLT COUNT & AUTO [id number] 06:51:00 Test Item Value Reference Range Interpretation Comments WHITE BLOOD CELL COUNT (BEAKER) 9.6 K/ L 3.5-10.5 (test code = 775) RED BLOOD CELL COUNT (BEAKER) 3.71 M/ L 3.93-5.22 L (test code = 761) HEMOGLOBIN (BEAKER) (test code = 11.1 GM/DL 11.2-15.7 L 410) HEMATOCRIT (BEAKER) (test code = 33.4 % 34.1-44.9 L 411) MEAN CORPUSCULAR VOLUME (BEAKER) 90.0 fL 79.4-94.8 (test code = 753) MEAN CORPUSCULAR HEMOGLOBIN 29.9 pg 25.6-32.2 (BEAKER) (test code = 751) MEAN CORPUSCULAR HEMOGLOBIN CONC 33.2 GM/DL 32.2-35.5 (BEAKER) (test code = 752) RED CELL DISTRIBUTION WIDTH 12.8 % 11.7-14.4 (BEAKER) (test code = 412) PLATELET COUNT (BEAKER) (test 239 K/CU MM 150-450 code = 756) MEAN PLATELET VOLUME (BEAKER) 9.4 fL 9.4-12.3 (test code = 754) NUCLEATED RED BLOOD CELLS 0 /100 WBC 0-0 (BEAKER) (test code = 413) NEUTROPHILS RELATIVE PERCENT 55 % (BEAKER) (test code = 429) LYMPHOCYTES RELATIVE PERCENT 36 % (BEAKER) (test code = 430) MONOCYTES RELATIVE PERCENT 6 % (BEAKER) (test code = 431) EOSINOPHILS RELATIVE PERCENT 2 % (BEAKER) (test code = 432) BASOPHILS RELATIVE PERCENT 0 % (BEAKER) (test code = 437) NEUTROPHILS ABSOLUTE COUNT 5.28 K/ L 1.56-6.13 (BEAKER) (test code = 670) LYMPHOCYTES ABSOLUTE COUNT 3.43 K/ L 1.18-3.74 (BEAKER) (test code = 414) MONOCYTES ABSOLUTE COUNT (BEAKER) 0.61 K/ L 0.24-0.36 H (test code = 415) EOSINOPHILS ABSOLUTE COUNT 0.21 K/ L 0.04-0.36 (BEAKER) (test code = 416) BASOPHILS ABSOLUTE COUNT (BEAKER) 0.04 K/ L 0.01-0.08 (test code = 417) IMMATURE GRANULOCYTES-RELATIVE 0 % 0-1 PERCENT (BEAKER) (test code = 2801) TROPONIN [id number] 12:48:00 Test Item Value Reference Range Interpretation Comments TROPONIN I (BEAKER) (test code = 0.05 ng/mL 0.00-0.03 H 397) Troponin I (TnI) levels must be interpreted [...] acidosis, acute neurological disease, and persistent tachyarrhythmia.HEMOGLOBIN [id number] 09:39:00 Test Item Value Reference Range Interpretation Comments HEMOGLOBIN A1C (BEAKER) (test code = 6.1 % 4.3-6.1 368) TSH/FREE T4 IF [id number] 07:14:00 Test Item Value Reference Range Interpretation Comments THYROID STIMULATING HORMONE 3.28 uIU/mL 0.35-4.94 (BEAKER) (test code = 772) [id number] 06:50:00 Test Item Value Reference Range Interpretation Comments PHOSPHORUS (BEAKER) (test code = 1.8 mg/dL 2.3-4.7 L 604) [id number] 06:50:00 Test Item Value Reference Range Interpretation Comments MAGNESIUM (BEAKER) (test code = 1.9 mg/dL 1.6-2.6 627) BASIC METABOLIC [id number] 06:50:00 Test Item Value Reference Range Interpretation Comments SODIUM (BEAKER) 140 meq/L 136-145 (test code = 381) POTASSIUM (BEAKER) 3.8 meq/L 3.5-5.1 (test code = 379) CHLORIDE (BEAKER) 110 meq/L 98-107 H (test code = 382) CO2 (BEAKER) (test 20 meq/L 22-29 L code = 355) BLOOD UREA NITROGEN 10 mg/dL 7-21 (BEAKER) (test code = 354) CREATININE (BEAKER) 0.85 mg/dL 0.57-1.25 (test code = 358) GLUCOSE RANDOM 78 mg/dL 70-105 (BEAKER) (test code = 652) CALCIUM (BEAKER) 8.9 mg/dL 8.4-10.2 (test code = 697) EGFR (BEAKER) (test 65 mL/min/1.73 ESTIMA JOSETTE GFR IS code = 1092) sq m NOT ACCURATE CREATININE CLEARANCE IN PREDICTING GLOMERULAR FILTRATION RATE . ESTIMATED GFR I S NOT APPLICABLE FOR DIALYSIS PATIEN TS. LIPID [id number] 06:50:00 Test Item Value Reference Range Interpretation Comments TRIGLYCERIDES (BEAKER) (test code = 64 mg/dL 540) CHOLESTEROL (BEAKER) (test code = 95 mg/dL 631) HDL CHOLESTEROL (BEAKER) (test code 46 mg/dL = 976) LDL CHOLESTEROL CALCULATED (BEAKER) 36 mg/dL (test code = 633) Triglyceride Reference Range: Low Risk <150 Borderline 150-199 High Risk 200-499 Very High Risk >=500Cholesterol Reference Range: Low Risk <200 Borderline 200-239 High Risk >240HDL Cholesterol Reference Range: Low Risk >=60 High Risk <40LDL Cholesterol Reference Range: Optimal <100 Near Optimal 100-129 Borderline 130-159 High 160-189 Very High >=190HEPATIC FUNCTION [id number] 06:50:00 Test Item Value Reference Range Interpretation Comments TOTAL PROTEIN (BEAKER) (test code = 6.1 gm/dL 6.0-8.3 770) ALBUMIN (BEAKER) (test code = 1145) 3.3 g/dL 3.5-5.0 L BILIRUBIN TOTAL (BEAKER) (test code 0.3 mg/dL 0.2-1.2 = 377) BILIRUBIN DIRECT (BEAKER) (test 0.2 mg/dL 0.1-0.5 code = 706) ALKALINE PHOSPHATASE (BEAKER) (test 109 U/L 40-150 code = 346) AST (SGOT) (BEAKER) (test code = 270 U/L 5-34 H 353) ALT (SGPT) (BEAKER) (test code = 143 U/L 6-55 H 347) [id number] 06:50:00 Test Item Value Reference Range Interpretation Comments AMYLASE (BEAKER) (test code = 349) 44 U/L 25-125 [id number] 06:50:00 Test Item Value Reference Range Interpretation Comments LIPASE (BEAKER) (test code = 609) 9 U/L 8-78 C-REACTIVE [id number] 06:50:00 Test Item Value Reference Range Interpretation Comments C-REACTIVE PROTEIN (BEAKER) (test 3.20 mg/dL 0.00-0.50 H code = 676) CREATINE KINASE (CK), TOTAL AND [id number] 06:50:00 Test Item Value Reference Range Interpretation Comments CREATINE KINASE TOTAL (BEAKER) 189 U/L 29-200 (test code = 380) CREATINE KINASE-MB (BEAKER) (test 3.0 ng/mL 0.0-6.6 code = 750) CREATINE KINASE-MB INDEX (BEAKER) 1.6 % (test code = 395) CK-MB Reference Range:<6.7 Normal6.7-10.0 Borderline>10.0 AbnormalTROPONIN [id number] 06:50:00 Test Item Value Reference Range Interpretation Comments TROPONIN I (BEAKER) (test code = 0.10 ng/mL 0.00-0.03 H 397) Troponin I (TnI) levels must be interpreted [...] failure, acidosis, acute neurological disease, and persistent tachyarrhythmia.PT/[id number] 06:41:00 Test Item Value Reference Range Interpretation Comments PROTIME (BEAKER) (test code = 16.3 seconds 11.7-14.7 H 759) INR (BEAKER) (test code = 370) 1.3 <=5.9 PARTIAL THROMBOPLASTIN TIME 39.1 seconds 22.5-36.0 H (BEAKER) (test code = 760) RECOMMENDED COUMADIN/WARFARIN INR THERAPY RANGESSTANDARD DOSE: 2.0 - 3.0 Includes: PROPHYLAXIS forvenous thrombosis, systemic embolization; TREATMENT for venous thrombosis and/or pulmonary embolus.HIGH RISK: Target INR is 2.5-3.5 for patients with mechanical heart valves.CBC W/PLT COUNT & AUTO DIFFERENTIAL 2018-06-20 06:32:00 Test Item Value Reference Range Interpretation Comments WHITE BLOOD CELL COUNT (BEAKER) 9.5 K/ L 3.5-10.5 (test code = 775) RED BLOOD CELL COUNT (BEAKER) 3.19 M/ L 3.93-5.22 L (test code = 761) HEMOGLOBIN (BEAKER) (test code = 9.6 GM/DL 11.2-15.7 L 410) HEMATOCRIT (BEAKER) (test code = 29.1 % 34.1-44.9 L 411) MEAN CORPUSCULAR VOLUME (BEAKER) 91.2 fL 79.4-94.8 (test code = 753) MEAN CORPUSCULAR HEMOGLOBIN 30.1 pg 25.6-32.2 (BEAKER) (test code = 751) MEAN CORPUSCULAR HEMOGLOBIN CONC 33.0 GM/DL 32.2-35.5 (BEAKER) (test code = 752) RED CELL DISTRIBUTION WIDTH 13.1 % 11.7-14.4 (BEAKER) (test code = 412) PLATELET COUNT (BEAKER) (test 209 K/CU MM 150-450 code = 756) MEAN PLATELET VOLUME (BEAKER) 9.5 fL 9.4-12.3 (test code = 754) NUCLEATED RED BLOOD CELLS 0 /100 WBC 0-0 (BEAKER) (test code = 413) NEUTROPHILS RELATIVE PERCENT 64 % (BEAKER) (test code = 429) LYMPHOCYTES RELATIVE PERCENT 27 % (BEAKER) (test code = 430) MONOCYTES RELATIVE PERCENT 7 % (BEAKER) (test code = 431) EOSINOPHILS RELATIVE PERCENT 1 % (BEAKER) (test code = 432) BASOPHILS RELATIVE PERCENT 1 % (BEAKER) (test code = 437) NEUTROPHILS ABSOLUTE COUNT 6.09 K/ L 1.56-6.13 (BEAKER) (test code = 670) LYMPHOCYTES ABSOLUTE COUNT 2.58 K/ L 1.18-3.74 (BEAKER) (test code = 414) MONOCYTES ABSOLUTE COUNT (BEAKER) 0.66 K/ L 0.24-0.36 H (test code = 415) EOSINOPHILS ABSOLUTE COUNT 0.12 K/ L 0.04-0.36 (BEAKER) (test code = 416) BASOPHILS ABSOLUTE COUNT (BEAKER) 0.05 K/ L 0.01-0.08 (test code = 417) IMMATURE GRANULOCYTES-RELATIVE 0 % 0-1 PERCENT (BEAKER) (test code = 2801) ID, [id number] 14:41:00Reason for exam:->recurrent ruq pain,isolated right biliary systemAddendum BeginsREPORT STATUS:A Addendum Fluoroscopy time: 2.4 minutes Number of exposures performed: 8 Radiation dose (Ka,r): 17.4 mGy Signed: Arabella Hidalgo Verified Date/ Time: 07/05/2017 14:41:02 Reading Location: [facility] Diagnostic Imaging Reading Room - [facility] 1[facility].12Addendum EndsAddendum BeginsREPORT STATUS:A Addendum Fluoroscopy time: 2.4 minutes Number of exposures performed: Eight Radiation dose (Ka,r): 17.4 mGy Signed: Arabella Hidalgo Verified Date/Time: 07/05/2017 14:37:54 Reading Location: [facility] Diagnostic Imaging Reading Room [place] [id number] EndsFINAL REPORT ERCP History provided: Recurrent right upper quadrant pain Comparison exam: 2010 Cholecystectomy clips are evident. Retrograde injection opacifies dilated common bile duct which is only partially opacified with contrast, and normal visualized intrahepatic biliary ducts. On the final image, a stent was placed extending from the upper common duct distally. Signed: Arabella Hidalgo Verified Date/Time: 06/04/2017 17:18:22 Reading Location: [address] Radiology Reading Room
--- OUTSIDE RECORDS SUMMARY | 2020-06-22 13:52 | XMS REPORT | Clinical Summary ---
:1940 Author Organization [facility] Address [address] [place] [address] Care Team Providers Name Role Phone Barry Merritt MD Primary Care Provider Allergies Active Allergy Reactions Severity Noted Date Comments Codeine 05/29/2017 Can't recall re action. Metronidazole Nausea And Vomiting 05/29/2017 headach e Levofloxacin Nausea And Vomiting, Other 06/23/2018 h eadache (See Comments) Medications Medication Sig Dispensed Refills Start Date End Date Status sucralfate (CARAFATE) Take 1 g by mouth 4 0 Active 1 gram tablet (four) times daily. aspirin 325 MG EC Take 325 mg by 0 Active tablet mouth daily. ondansetron (ZOFRAN) Take 4 mg by mouth 0 Active 4 MG tablet 2 (two) times daily as needed for Nausea. levothyroxine Take 50 mcg by 0 A ctive (SYNTHROID, mouth Every morning LEVOTHROID) 50 MCG on an empty stomach tablet 1/2. metoprolol Take 25 mg by mouth 0 Active (TOPROL-XL) 25 MG 24 daily. hr tablet OMEPRAZOLE ORAL Take 1 tablet by 0 Active mouth daily . calcium Take 600 mg by 0 Activ e carbonate/vitamin D3 mouth. (CALTRATE WITH VITAMIN D3 ORAL) amLODIPine (NORVASC) Take 5 mg by mouth 0 Active 5 MG tablet daily. promethazine Take 1 tablet (12.5 30 tablet 0 06/21/2018 Active (PHENERGAN) 12.5 MG mg total) by mouth tablet every 6 (six) hours as needed for Nausea. simvastatin (ZOCOR) Take 1 tablet (20 30 tablet 0 06/25/2018 Active 20 MG tablet mg total) by mouth nightly Either you take pravastatin or simvastatin for cholesterol but not both. Active Problems Problem Noted Date Nausea and vomiting, intractability of vomiting not sp ecified, unspecified 06/23/2018 vomiting type Hypothyroidism 06/20/2018 Transaminitis 06/20/2018 Dilated cbd, acquired 06/20/2018 RUQ abdominal pain 06/19/2018 Essential hypertension 06/19/2018 Abnormal liver enzymes 06/19/2018 Social History Tobacco Use Types Packs/Day Years Used Date Former Smoker 0.25 9 Quit: 1972 Smokeless Tobacco: Never Used Alcohol Use Drinks/Week oz/Week Comments No Sex Assigned at Date Recorded Not on file Job Start Date Occupation Industry Not on file Not on file Not on file Travel History Travel Start Travel End No recent travel history available. Last Filed Vital Signs Not on file Plan of Treatment Not on file Results Not on fileafter 06/22/2019 Insurance Payer Benefit Plan / Group Subscriber ID Type Phone A ddress MEDICARE MEDICARE A B xxxxxxxxxx Medicare MCR GENERIC MEDICARE xxxxxxxxx Medigap SUPPLEMENT/INDIVIDUAL SUPPLEMENT Advance Directives For more information, please contact:[address] [phone] Code Status Date Activated Date Inactivated Comments Full Code 06/23/2018 11:35 PM 06/25/2018 2:57 PM This code status was determined by: Patient Full Code 06/19/2018 11:34 PM 06/21/2018 1:34 PM This code status was determined by: Patient
[2020-06-22 16:30] LABS: Absolute Lymphocytes (CBC) 3.9 K/uL (0.7-4.9); Basophils % 0.6 % (0-1.3); Hematocrit 32.7 % (36.0-45.0); Lymphocytes % 36.6 % (15.3-44.8); MPV 7.4 fL (7.6-11.3); RBC Red Blood Cell Count 3.85 M/uL (3.86-4.86)
[2020-06-22 16:31] LABS: Protime INR 0.94
--- NOTE | 2020-06-22 16:46 | RAD REPORT ---
EXAM DESCRIPTION: Adali Single View06/22/2020 4:02 pm CLINICAL HISTORY: Shortness breath COMPARISON: November 2019 FINDINGS: Lungs are hyperaerated. The lungs appear clear of acute infiltrate. The heart is normal size IMPRESSION: No acute abnormalities displayed
[2020-06-22 16:48] LABS: ALT/SGPT 18 U/L (12-78); AST/SGOT 65 U/L (15-37); Albumin 3.9 g/dL (3.4-5.0); Alkaline Phosphatase 92 U/L (45-117); BUN Blood Urea Nitrogen 22 mg/dL (7-18); Bicarbonate 24 mmol/L (21-32); Bilirubin Direct < 0.1 mg/dL (0-0.2); Bilirubin Total 0.3 mg/dL (0.2-1.0); Glucose Level 106 mg/dL (74-106); Magnesium 2.3 mg/dL (1.8-2.4); NT PRO-BNP 381 pg/mL (<450); Potassium 4.1 mmol/L (3.5-5.1); Sodium Level 133 mmol/L (136-145); Troponin (Emerg Dept Use Only) < 0.02 ng/mL (0.0-0.045)
[2020-06-22] MEDS ORDERED: NA CHLORIDE 0.9% 500 ML ONE (17:17)
[2020-06-22] MEDS ORDERED: ALBUTEROL 2.5 MG/3 ML NEB SOL ONE (17:17)
--- NOTE | 2020-06-22 17:50 | RAD REPORT ---
EXAM DESCRIPTION: CT - Chest For Pe Angio - 06/22/2020 5:22 pm CLINICAL HISTORY: sob COMPARISON: November 2019 TECHNIQUE: Dynamically enhanced axial 3 mm thick images of the chest were obtained during administra tion of <100> mL Isovue 370 IV contrast. Coronal and oblique reconstruction images were generated and reviewed. Exam utilizes a protocol for optimal evaluation of pulmonary arterial tree. Maximum intensity projections 3D imaging was utilized All CT scans are performed using dose optimization technique as appropriate and may include automated exposure control or mA/KV adjustment according to patient size. FINDINGS: A pulmonary embolus is not seen. A thoracic aortic aneurysm is not noted. A pleural effusion is not seen. A pericardial effusion is not seen. Centrilobular emphysema. Mild chronic appearing interstitial lung opacities. Mild tree-in-bud opaciti es lingula IMPRESSION: Negative for a pulmonary embolism. Mild tree-in-bud opacities lingula may indicate a mild atypical pneumonia
--- NOTE | 2020-06-22 18:21 | ER ---
Nurse's Notes [facility] Name: Yoly Howard Age: 80 yrs Sex: Female : 1940 Arrival Date: 06/22/2020 Time: 13:51 Bed 17 Private MD: Alyssa Merritt C Diagnosis: Pneumonia, unspecified organism Presentation: 06/22 14:21 Chief complaint: Patient states: Shortness of breath on exertion x 1.5 months, jl7 worsening over the last week and a half. Coronavirus screen: Client denies travel out of the [place] in the last 14 days. At this time, the client does not indicate any symptoms associated with coronavirus-19. Ebola Screen: No symptoms or risks identified at this time. Initial Sepsis Screen: Does the patient meet any 2 criteria? No. Patient's initial sepsis screen is negative. Does the patient have a suspected source of infection? No. Patient's initial sepsis screen is negative. Risk Assessment: Do you want to hurt yourself or someone else? Patient reports no desire to harm self or others. Onset of symptoms is unknown. Transition of care: patient was not received from another setting of care. 14:21 Method Of Arrival: Ambulatory jl7 14:21 Acuity: JACLYN 3 jl7 Triage Assessment: 14:25 General: Appears in no apparent distress. uncomfortable, Behavior is calm, cooperative, jl7 appropriate for age. Pain: Denies pain. Respiratory: Reports shortness of breath on exertion Airway is patent Respiratory effort is even, unlabored, Respiratory pattern is regular, symmetrical, Onset: The symptoms/episode began/occurred gradually, the patient has mild shortness of breath. Historical: - Allergies: 14:25 Codeine; jl7 14:25 Flagyl; jl7 14:25 Levaquin; jl7 - Home Meds: 14:25 metoprolol tartrate 25 mg Oral tab 1 tab once daily [Active]; levothyroxine 25 mcg tab jl7 1 tab once daily [Active]; aspirin 325 mg Oral tab 1 tab once daily [Active]; simvastatin 20 mg Oral tab 1 tab once daily [Active]; amlodipine 5 mg tab 1 tab once daily [Active]; Vitamin C 1,000 mg Oral tab [Active]; Vitamin D Oral 1,000 unit [Active]; calcium carbonate 600 mg (1,500 mg) Oral tab [Active]; - PMHx: 14:25 abdominal pain; High Cholesterol; Hypertension; Nausea; jl7 - Immunization history:: Adult Immunizations up to date. - Social history:: Smoking status: Patient denies any tobacco usage or history of. Screenin:30 Abuse screen: Denies threats or abuse. Denies injuries from another. Nutritional jr10 screening: No deficits noted. Tuberculosis screening: No symptoms or risk factors identified. Fall Risk IV access (20 points). Assessment: 16:30 General: Appears in no apparent distress. Behavior is calm, cooperative, appropriate jr10 for age. Pain: Denies pain. Neuro: No deficits noted. Cardiovascular: No deficits noted. Denies chest pain, Rhythm is sinus rhythm. Respiratory: Reports shortness of breath on exertion Airway is patent Respiratory effort is even, unlabored, Respiratory pattern is regular, symmetrical, Breath sounds are clear bilaterally. the patient has mild shortness of breath. GI: No deficits noted. No signs and/or symptoms were reported involving the gastrointestinal system. : No deficits noted. No signs and/or symptoms were reported regarding the genitourinary system. EENT: No deficits noted. No signs and/or symptoms were reported regarding the EENT system. Derm: No deficits noted. No signs and/or symptoms reported regarding the dermatologic system. Musculoskeletal: No deficits noted. No signs and/or symptoms reported regarding the musculoskeletal system. Vital Signs: 14:21 BP 117 / 58; Pulse 71; Resp 17; Temp 97.8; Pulse Ox 100% ; Weight 51.71 kg; Pain 0/10; jl7 17:42 BP 157 / 62; Pulse 75; Resp 16; Pulse Ox 97% on R/A; jr10 18:47 BP 158 / 65; Pulse 68; Resp 16; Pulse Ox 99% on R/A; jr10 ED Course: 13:51 Patient arrived in ED. as 13:51 Alyssa Merritt MD is Private Physician. as 14:22 Triage completed. jl7 14:25 Arm band placed on right wrist. jl7 14:26 Patient placed in waiting room, Patient notified of wait time. jl7 15:45 Natasha May FNP-C [facility]. snw 15:45 Eder Rainey MD is Attending Physician. snw 16:03 Chest Single View XRAY In Process Unspecified. EDMS 16:12 Initial lab(s) drawn, by me, sent to lab. Inserted saline lock: 20 gauge in right dh3 antecubital area, using aseptic technique. Blood collected. 16:19 Marcelle Mclain, RN is Primary Nurse. jr10 16:30 Patient has correct armband on for positive identification. Bed in low position. Call jr10 light in reach. Side rails up X2. industrial energy engineer on. Pulse ox on. NIBP on. 17:21 CT Chest For PE Angio In Process Unspecified. EDMS 18:19 Alyssa Merritt MD is Referral Physician. snw 18:49 No provider procedures requiring assistance completed. IV discontinued, intact, jr10 bleeding controlled, No redness/swelling at site. Pressure dressing applied. Administered Medications: 16:45 Drug: Albuterol 2.5 mg Route: Inhalation; jr10 17:42 Follow up: Response: No adverse reaction jr10 17:14 Drug: NS 0.9% 500 ml Route: IV; Rate: bolus; Site: right forearm; jr10 17:42 Follow up: Response: No adverse reaction; IV Status: Completed infusion jr10 18:14 CANCELLED (Other Intervention Used): Zithromax 500 mg IVPB once over 1 hrs; mix in 250 snw mL NS 18:45 Drug: Zithromax 500 mg Route: PO; jr10 Outcome: 18:20 Discharge ordered by . snw 18:49 Discharged to home ambulatory. jr10 18:49 Condition: good 18:49 Discharge instructions given to patient, Instructed on discharge instructions, follow up and referral plans. Demonstrated understanding of instructions, follow-up care, medications. 18:50 Patient left the ED. jr10 Signatures: Dispatcher [employer] EDKY Natasha May, DIETITIAN CONSULTANT-C DIETITIAN CONSULTANT-Csnw Diamond Tavares Jahala, RN RN jl7 Michelle Landeros [facility] Marcelle Mclain, RN RN jr10 Corrections: (The following items were deleted from the chart) 18:48 17:42 Pulse 75bpm; Resp 16bpm; Pulse Ox 97% RA; jr10 jr10
--- NOTE | 2020-06-22 18:21 | EDPHYS ---
Physician Documentation [facility] Name: Yoly Howard Age: 80 yrs Sex: Female : 1940 Arrival Date: 06/22/2020 Time: 13:51 Bed 17 Private MD: Alyssa Merritt C ED Physician Eder Rainey HPI: 06/22 15:55 This 80 yrs old Female presents to ER via Ambulatory with complaints of snw Breathing Difficulty. 15:55 The patient has shortness of breath with light activity. Onset: The symptoms/episode snw began/occurred 1.5 month(s) ago, and became worse 1 week(s) ago, and became persistent. Duration: The symptoms are continuous. The patient's shortness of breath is aggravated by exertion, light activity, walking. Associated signs and symptoms: The patient has no apparent associated signs or symptoms. Severity of symptoms: At their worst the symptoms were moderate in the emergency department the symptoms are unchanged. The patient has not experienced similar symptoms in the past. virtually, last bloodwork 2-3 weeks ago. Historical: - Allergies: 14:25 Codeine; jl7 14:25 Flagyl; jl7 14:25 Levaquin; jl7 - Home Meds: 14:25 metoprolol tartrate 25 mg Oral tab 1 tab once daily [Active]; levothyroxine 25 mcg tab jl7 1 tab once daily [Active]; aspirin 325 mg Oral tab 1 tab once daily [Active]; simvastatin 20 mg Oral tab 1 tab once daily [Active]; amlodipine 5 mg tab 1 tab once daily [Active]; Vitamin C 1,000 mg Oral tab [Active]; Vitamin D Oral 1,000 unit [Active]; calcium carbonate 600 mg (1,500 mg) Oral tab [Active]; - PMHx: 14:25 abdominal pain; High Cholesterol; Hypertension; Nausea; jl7 - Immunization history:: Adult Immunizations up to date. - Social history:: Smoking status: Patient denies any tobacco usage or history of. ROS: 15:54 Constitutional: Negative for fever, chills, and weight loss, Eyes: Negative for injury, snw pain, redness, and discharge, ENT: Negative for injury, pain, and discharge, Neck: Negative for injury, pain, and swelling, Cardiovascular: Negative for chest pain, palpitations, and edema, Abdomen/GI: Negative for abdominal pain, nausea, vomiting, diarrhea, and constipation, Back: Negative for injury and pain, : Negative for injury, bleeding, discharge, and swelling, MS/Extremity: Negative for injury and deformity, Skin: Negative for injury, rash, and discoloration, Neuro: Negative for headache, weakness, numbness, tingling, and seizure, Psych: Negative for depression, anxiety, suicide ideation, homicidal ideation, and hallucinations. 15:54 Respiratory: Positive for dyspnea on exertion. Exam: 15:54 Constitutional: This is a well developed, well nourished patient who is awake, alert, snw and in no acute distress. Head/Face: Normocephalic, atraumatic. Eyes: Pupils equal round and reactive to light, extra-ocular motions intact. Lids and lashes normal. Conjunctiva and sclera are non-icteric and not injected. Cornea within normal limits. Periorbital areas with no swelling, redness, or edema. ENT: Nares patent. No nasal discharge, no septal abnormalities noted. Tympanic membranes are normal and external auditory canals are clear. Oropharynx with no redness, swelling, or masses, exudates, or evidence of obstruction, uvula midline. Mucous membranes moist. Neck: Trachea midline, no thyromegaly or masses palpated, and no cervical lymphadenopathy. Supple, full range of motion without nuchal rigidity, or vertebral point tenderness. No Meningismus. Chest/axilla: Normal chest wall appearance and motion. Nontender with no deformity. No lesions are appreciated. Cardiovascular: Regular rate and rhythm with a normal S1 and S2. No gallops, murmurs, or rubs. Normal PMI, no JVD. No pulse deficits. Abdomen/GI: Soft, non-tender, with normal bowel sounds. No distension or tympany. No guarding or rebound. No evidence of tenderness throughout. Back: No spinal tenderness. No costovertebral tenderness. Full range of motion. Skin: Warm, dry with normal turgor. Normal color with no rashes, no lesions, and no evidence of cellulitis. MS/ Extremity: Pulses equal, no cyanosis. Neurovascular intact. Full, normal range of motion. Neuro: Awake and alert, GCS 15, oriented to person, place, time, and situation. Cranial nerves II-XII grossly intact. Motor strength 5/5 in all extremities. Sensory grossly intact. Cerebellar exam normal. Normal gait. 15:54 Respiratory: the patient does not display signs of respiratory distress, Respirations: shallow respirations, tachypnea, that is mild, Breath sounds: are clear throughout, no bronchial sounds, no decreased breath sounds, no rales, rhonchi, no stridor, no wheezing. Vital Signs: 14:21 BP 117 / 58; Pulse 71; Resp 17; Temp 97.8; Pulse Ox 100% ; Weight 51.71 kg; Pain 0/10; jl7 17:42 BP 157 / 62; Pulse 75; Resp 16; Pulse Ox 97% on R/A; jr10 18:47 BP 158 / 65; Pulse 68; Resp 16; Pulse Ox 99% on R/A; jr10 MDM: 15:54 Patient medically screened. snw 16:55 Data reviewed: vital signs, nurses notes, lab test result(s), EKG, radiologic studies. snw Data interpreted: Pulse oximetry: on room air is 100 %. Interpretation: normal. Counseling: I had a detailed discussion with the patient and/or guardian regarding: the historical points, exam findings, and any diagnostic results supporting the discharge/admit diagnosis, lab results, radiology results. Physician consultation: A Shaina SHANNON was called at 16:56, was contacted at 16:56, regarding consult, patient's condition, would like further tests performed, CT scan, would like medications started, albuterol neb and 500ml NS. 06/22 15:53 Order name: Basic Metabolic Panel; Complete Time: 16:51 w 06/22 15:53 Order name: CBC with Diff; Complete Time: 16:34 snw 06/22 15:53 Order name: LFT's; Complete Time: 16:51 snw 06/22 15:53 Order name: Magnesium; Complete Time: 16:51 snw 06/22 15:53 Order name: NT PRO-BNP; Complete Time: 16:51 snw 06/22 15:53 Order name: PT-INR; Complete Time: 16:40 snw 06/22 15:46 Order name: Chest Single View XRAY; Complete Time: 16:51 snw 06/22 15:53 Order name: Troponin (emerg Dept Use Only); Complete Time: 16:51 snw 06/22 15:53 Order name: TSH; Complete Time: 16:51 snw 06/22 16:55 Order name: CT Chest For PE Angio; Complete Time: 18:05 snw 06/22 15:53 Order name: EKG; Complete Time: 15:54 snw 06/22 15:53 Order name: Cardiac monitoring; Complete Time: 16:50 snw 06/22 15:53 Order name: EKG - Nurse/Tech; Complete Time: 16:50 snw 06/22 15:53 Order name: IV Saline Lock; Complete Time: 16:16 snw 06/22 15:53 Order name: Labs collected and sent; Complete Time: 16:16 snw 06/22 15:53 Order name: O2 Per Protocol; Complete Time: 16:16 snw 06/22 15:53 Order name: O2 Sat Monitoring; Complete Time: 16:16 snw Administered Medications: 16:45 Drug: Albuterol 2.5 mg Route: Inhalation; 10 17:42 Follow up: Response: No adverse reaction jr10 17:14 Drug: NS 0.9% 500 ml Route: IV; Rate: bolus; Site: right forearm; jr10 17:42 Follow up: Response: No adverse reaction; IV Status: Completed infusion jr10 18:14 CANCELLED (Other Intervention Used): Zithromax 500 mg IVPB once over 1 hrs; mix in 250 snw mL NS 18:45 Drug: Zithromax 500 mg Route: PO; jr10 Disposition: 18:52 Co-signature as Attending Physician, Eder Rainey MD. rn Disposition: 06/22/20 18:20 Discharged to Home. Impression: Pneumonia, unspecified organism. - Condition is Stable. - Discharge Instructions: Community-Acquired Pneumonia, Adult. - Medication Reconciliation Form, Thank You Letter, Antibiotic Education, Prescription Opioid Use form. - Follow up: Emergency Department; When: As needed; Reason: Worsening of condition. Follow up: Alyssa Merritt MD; When: 10 - 14 days; Reason: Recheck today's complaints, Continuance of care, Re-evaluation by your physician. - Notes: Dr. Merritt has sent Zithromax and Advair prescriptions to [facility]. Please remember to rinse your mouth with water after using Advair. Follow up with Dr. Merritt in two weeks. Signatures: Dispatcher [employer] EDMI Natasha May, VARNISH REMOVER-C VARNISH REMOVER-Csnw Eder Rainey MD MD rn Leal, Jahala, RN RN jl7 Marcelle Mclain RN RN jr10 Corrections: (The following items were deleted from the chart) 18:14 18:05 Zithromax 500 mg IVPB once over 1 hrs; mix in 250 mL NS ordered. snw snw 18:50 18:20 06/22/2020 18:20 Discharged to Home. Impression: Pneumonia, unspecified organism. jr10 Condition is Stable. Forms are Medication Reconciliation Form, Thank You Letter, Antibiotic Education, Prescription Opioid Use. Follow up: Emergency Department; When: As needed; Reason: Worsening of condition. Follow up: A Merritt; When: 10 - 14 days; Reason: Recheck today's complaints, Continuance of care, Re-evaluation by your physician. snw
[2020-06-22] MEDS ORDERED: AZITHROMYCIN 250 MG TAB ONE (18:44)
[2020-06-27 15:20] VITALS: TEMP 97.8
[2020-06-27 15:22] VITALS: BP 158/65; O2SAT 99
== END 2020-06-22 18:50 | disposition home or self-care (01) ==
LOC: ER 13:49
DX: J18.9 Pneumonia, unspecified organism (principal); I10 Essential (primary) hypertension; E78.00 Pure hypercholesterolemia, unspecified; Z79.82 Long term (current) use of aspirin; Z88.1 Allergy status to other antibiotic agents; Z88.5 Allergy status to narcotic agent
CPT/HCPCS: 93005; 85025; 80048; 36415; 83735; 85610; 80076; 84443; 84484; 83880; 71275; 71045; 99285; Q9967; J7040

== ENCOUNTER 2020-08-15 08:18 | Emergency (ER) | payer OTHER ==
--- OUTSIDE RECORDS SUMMARY | 2020-08-15 09:08 | XMS REPORT | Clinical Summary ---
:1940 Author Organization [facility] Address [address] [place] [address] Care Team Providers Name Role Phone Barry [...] Not on file Results Not on fileafter 08/15/2019 Insurance Payer Benefit Plan / Subscriber ID Effective Dates Phone Addre ss Type Group MEDICARE MEDICARE A B [id number] 2004-Present Medicare MCR GENERIC MEDICARE [id number] 2017-Present Medigap SUPPLEMENT/JASWINDER SUPPLEMENT VIDUAL Advance Directives For more information, please contact: [phone] Code Status Date Activated Date Inactivated Comments Full Code 06/23/2018 11:35 PM 06/25/2018 2:57 PM This code status was determined by: Patient Full Code 06/19/2018 11:34 PM 06/21/2018 1:34 PM This code status was determined by: Patient
--- OUTSIDE RECORDS SUMMARY | 2020-08-15 09:09 | XMS REPORT | Continuity of Care Document ---
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 Medica l reaction 00 [place] [facility] Metronid Propensi Active Nausea And headache [facility] azole ty to Vomiting 05-29 [facility] - adverse 00:00: Medical reaction 00 Center s Social History Social Habit Start Date Stop Date Quantity Comments Source History of tobacco [facility] use [facility] Sex Assigned At [facility] Cigarettes smoked 2018-06-23 2018-06-23 [facility] - current (pack per 00:00:00 00:00:00 [facility] day) - Reported Cigarette 2018-06-23 2018-06-23 [facility] - pack-years 00:00:00 00:00:00 [facility] Tobacco use and 2018-06-23 2018-06-23 Never used [facility] - exposure 00:00:00 00:00:00 [facility] Alcohol intake 2018-06-23 2018-06-23 [facility]:00 non-drinker of Medical nter alcohol (finding) Smoking Status Start Date Stop Date Source Former smoker 2018-06-23 00:00:00 2018-06-23 00:00:00 [facility] Medications Ordered Filled Start Stop Current Ordering Indication Dosage Frequency Signature Comments Components Source Medication Medication Date Date Medication? Clinician (SIG) Name Name sucralfate Yes 1g Q.25D Take [address] (CARAFATE) 8-29 by mouth 4 Jaja es - 1 gram 12:57: (four) Medical tablet 00 times Center daily. aspirin 325 Yes 325mg QD Take [address] MG EC 8-29 mg by [facility] - tablet 12:57: mouth Medical 00 daily. Center ondansetron Yes 4mg Take [address] (ZOFRAN) 4 8-29 by mouth 2 Jaja es - MG tablet 12:57: (two) Medical 00 times Center daily as needed for Nausea. levothyroxi Yes 50ug Take [address] [facility] ne 8-29 mcg by [facility] - (SYNTHROID, 12:57: mouth Medic al LEVOTHROID) 00 Every Center 50 MCG morning on tablet an empty stomach 1/2. metoprolol Yes 25mg QD Take [address] (TOPROL-XL) 8-29 by mouth Luke [facility] - 25 MG 24 hr 12:57: daily. Medi katie tablet 00 Center OMEPRAZOLE Yes 1{tbl} QD Take [address] [facility] ORAL 8-29 tablet by [facility] - 12:57: mouth Medical 00 daily . Center calcium Yes 600mg Take 600 [facility] carbonate/v 8-29 mg by [facility] - itamin D3 12:57: mouth. Medica l (CALTRATE 00 Center WITH VITAMIN D3 ORAL) amLODIPine Yes 5mg QD Take [address] [facility] (NORVASC) 5 8-29 by mouth [facility] - MG tablet 12:57: daily. Medica l 00 Center simvastatin Yes 20mg QD Take 1 [facility] [...] 6 (six) hours as needed for Nausea. Procedures This patient has no known procedures. Results Test Description Test Time Test Comments Results Result Comments Source BLOOD CULTURE 2018-06-29 06:00:00 Test Item Value Reference Range Interpretation Comme nts CULTURE (BEAKER) (test code = 1095) No growth in 5 days BLOOD [id number] 06:00:00 Test Item Value Reference Range Interpretation Comments CULTURE (BEAKER) (test No growth in 5 days code = 1095) CBC W/PLT COUNT & AUTO [id number] 05:48:00 Test Item Value Reference Range Interpretation Comments WHITE BLOOD CELL COUNT (BEAKER) 8.0 K/ L 3.5-10.5 (test code = 775) RED BLOOD CELL COUNT (BEAKER) 3.37 M/ L 3.93-5.22 L (test code [...] (BEAKER) (test code = 2801) HEPATIC FUNCTION [id number] 05:39:00 Test Item Value Reference Range Interpretation [...] 74 U/L 6-55 H 347) BASIC METABOLIC [id number] 05:39:00 Test Item Value Reference Range Interpretation [...] APPLICABLE FOR DIALYSIS PATIEN TS. HEPATIC FUNCTION [id number] 10:39:00 Test Item Value Reference Range Interpretation [...] 95 U/L 6-55 H 347) BASIC METABOLIC [id number] 05:39:00 Test Item Value Reference Range Interpretation [...] PATIEN TS. CBC W/PLT COUNT & AUTO [id number] 04:55:00 Test Item Value Reference Range Interpretation [...] (BEAKER) (test code = 2801) URINALYSIS W/ [id number] 22:01:00 Test Item Value Reference Range Interpretation [...] SOURCE(BEAKER) (test code Urine, Clean Catch = 2795) POCT-LACTIC ACID, [id number] 21:41:00 Test Item Value Reference Range Interpretation Comments POC-LACTIC ACID, 1.3 mmol/L 0.9-1.7 TESTED AT [facility] [address] (BEAKER) (test [facility] code = 2805) [address] TROPONIN [id number] 20:17:00 Test Item Value Reference Range Interpretation [...] failure, acidosis, acute neurological disease, and persistent tachyarrhythmia.[id number] 20:12:00 Test Item Value Reference Range Interpretation Comments LIPASE (BEAKER) (test code = 749) 56 U/L 8-78 [id number] 20:12:00 Test Item Value Reference Range Interpretation Comments AMYLASE (BEAKER) (test code = 349) 90 U/L 25-125 BASIC METABOLIC [id number] 20:12:00 Test Item Value Reference Range Interpretation [...] APPLICABLE FOR DIALYSIS PATIEN TS. HEPATIC FUNCTION [id number] 20:12:00 Test Item Value Reference Range Interpretation [...] H 347) CBC W/PLT COUNT & AUTO [id number] 19:59:00 Test Item Value Reference Range Interpretation [...] 0-1 PERCENT (BEAKER) (test code = 2801) [id number] 07:40:00 Test Item Value Reference Range Interpretation Comments PHOSPHORUS (BEAKER) (test code = 2.6 mg/dL 2.3-4.7 604) [id number] 07:40:00 Test Item Value Reference Range Interpretation Comments MAGNESIUM (BEAKER) (test code = 2.0 mg/dL 1.6-2.6 627) BASIC METABOLIC [id number] 07:40:00 Test Item Value Reference Range Interpretation [...] APPLICABLE FOR DIALYSIS PATIEN TS. HEPATIC FUNCTION [id number] 07:40:00 Test Item Value Reference Range Interpretation [...] H 347) CBC W/PLT COUNT & AUTO [id number] 06:51:00 Test Item Value Reference Range Interpretation [...] PERCENT (BEAKER) (test code = 2801) TROPONIN [id number] 12:48:00 Test Item Value Reference Range Interpretation [...] acidosis, acute neurological disease, and persistent tachyarrhythmia.HEMOGLOBIN [id number] 09:39:00 Test Item Value Reference Range Interpretation Comments HEMOGLOBIN A1C (BEAKER) (test code = 6.1 % 4.3-6.1 368) TSH/FREE T4 IF [id number] 07:14:00 Test Item Value Reference Range Interpretation Comments THYROID STIMULATING HORMONE 3.28 uIU/mL 0.35-4.94 (BEAKER) (test code = 772) [id number] 06:50:00 Test Item Value Reference Range Interpretation Comments PHOSPHORUS (BEAKER) (test code = 1.8 mg/dL 2.3-4.7 L 604) [id number] 06:50:00 Test Item Value Reference Range Interpretation Comments MAGNESIUM (BEAKER) (test code = 1.9 mg/dL 1.6-2.6 627) BASIC METABOLIC [id number] 06:50:00 Test Item Value Reference Range Interpretation [...] NOT APPLICABLE FOR DIALYSIS PATIEN TS. LIPID [id number] 06:50:00 Test Item Value Reference Range Interpretation [...] 130-159 High 160-189 Very High >=190HEPATIC FUNCTION [id number] 06:50:00 Test Item Value Reference Range Interpretation [...] code = 143 U/L 6-55 H 347) [id number] 06:50:00 Test Item Value Reference Range Interpretation Comments AMYLASE (BEAKER) (test code = 349) 44 U/L 25-125 [id number] 06:50:00 Test Item Value Reference Range Interpretation Comments LIPASE (BEAKER) (test code = 749) 9 U/L 8-78 C-REACTIVE [id number] 06:50:00 Test Item Value Reference Range Interpretation Comments C-REACTIVE PROTEIN (BEAKER) (test 3.20 mg/dL 0.00-0.50 H code = 676) CREATINE KINASE (CK), TOTAL AND [id number] 06:50:00 Test Item Value Reference Range Interpretation Comments CREATINE KINASE TOTAL (BEAKER) 189 U/L 29-200 (test code = 380) CREATINE KINASE-MB (BEAKER) (test 3.0 ng/mL 0.0-6.6 code = 750) CREATINE KINASE-MB INDEX (BEAKER) 1.6 % (test code = 395) CK-MB Reference Range:<6.7 Normal6.7-10.0 Borderline>10.0 AbnormalTROPONIN [id number] 06:50:00 Test Item Value Reference Range Interpretation [...] failure, acidosis, acute neurological disease, and persistent tachyarrhythmia.PT/[id number] 06:41:00 Test Item Value Reference Range Interpretation [...] 0-1 PERCENT (BEAKER) (test code = 2801) [place], [id number] 14:41:00Reason for exam:->recurrent ruq pain,isolated right biliary systemAddendum BeginsREPORT STATUS:A Addendum Fluoroscopy time: 2.4 minutes Number of exposures performed: 8 Radiation dose (Ka,r): 17.4 mGy Signed: Arabella Hidalgo Verified Date/ Time: 07/05/2017 14:41:02 Reading Location: [facility] Diagnostic Imaging Reading Room [place] [id number] EndsAddendum BeginsREPORT STATUS:A Addendum Fluoroscopy time: 2.4 minutes Number of exposures performed: Eight Radiation dose (Ka,r): 17.4 mGy Signed: Arabella Hidalgo Verified Date/Time: 07/05/2017 14:37:54 Reading Location: [facility] Diagnostic Imaging Reading Room [place] [address].Addendum EndsFINAL REPORT ERCP History provided: Recurrent right upper quadrant pain Comparison exam: 2011 Cholecystectomy clips are evident. Retrograde injection opacifies dilated common bile duct which is only partially opacified with contrast, and normal visualized intrahepatic biliary ducts. On the final image, a stent was placed extending from the upper common duct distally. Signed: Arabella Hidalgo Verified Date/Time: 06/04/2017 17:18:22 Reading Location: [address] Radiology Reading Room
[2020-08-15] MEDS ORDERED: FAMOTIDINE 20 MG/2 ML VIAL IV ONE (09:21)
[2020-08-15] MEDS ORDERED: NA CHLORIDE 0.9% 500 ML ONE (09:21)
[2020-08-15 09:32] LABS: Absolute Lymphocytes (CBC) 2.4 K/uL (0.7-4.9); Basophils % 0.2 % (0-1.3); Hematocrit 32.5 % (36.0-45.0); Lymphocytes % 25.7 % (15.3-44.8); MPV 7.2 fL (7.6-11.3); RBC Red Blood Cell Count 3.88 M/uL (3.86-4.86)
[2020-08-15 09:43] LABS: Albumin 3.2 g/dL (3.4-5.0); Bilirubin Direct 0.1 mg/dL (0-0.2); Bilirubin Total 0.4 mg/dL (0.2-1.0); Potassium 3.5 mmol/L (3.5-5.1); Protein, Total 8.2 g/dL (6.4-8.2)
--- NOTE | 2020-08-15 11:48 | EDPHYS ---
Physician Documentation [facility] Name: Yoly Howard Age: 80 yrs Sex: Female : 1940 Arrival Date: 08/15/2020 Time: 08:20 Bed 15 Private MD: ED Physician Pietro Fuentes HPI: 08/15 09:34 This 80 yrs old Female presents to ER via Ambulatory with complaints of kdr Diarrhea. 09:34 The patient presents to the emergency department with nausea, that is mild, diarrhea, kdr that is intermittent, abdominal pain. Onset: The symptoms/episode began/occurred gradually, 1 week(s) ago. Possible causes: unknown. The symptoms are aggravated by nothing. The symptoms are alleviated by nothing. Associated signs and symptoms: Pertinent positives: anorexia, diarrhea, Pertinent negatives: belching, constipation, dysuria, fever, flatulence, GI bleeding, hematuria, vaginal discharge, vomiting. Severity of symptoms: At their worst the symptoms were mild moderate just prior to arrival, in the emergency department the symptoms are unchanged. The patient has not experienced similar symptoms in the past. The patient has not recently seen a physician. Historical: - Allergies: 08:26 Codeine; ss 08:26 Flagyl; ss 08:26 Levaquin; ss - Home Meds: 08:26 amlodipine 5 mg tab 1 tab once daily [Active]; aspirin 325 mg Oral tab 1 tab once daily ss [Active]; calcium carbonate 600 mg (1,500 mg) Oral tab [Active]; levothyroxine 25 mcg tab 1 tab once daily [Active]; metoprolol tartrate 25 mg Oral tab 1 tab once daily [Active]; simvastatin 20 mg Oral tab 1 tab once daily [Active]; Vitamin C 1,000 mg Oral tab [Active]; Vitamin D Oral 1000 unit [Active]; - PMHx: 08:26 abdominal pain; High Cholesterol; Hypertension; Nausea; ss - Immunization history:: Adult Immunizations up to date. - Social history:: Smoking status: Patient denies any tobacco usage or history of. ROS: 09:36 Constitutional: Negative for fever, chills, and weight loss, Eyes: Negative for injury, kdr pain, redness, and discharge, ENT: Negative for injury, pain, and discharge, Neck: Negative for injury, pain, and swelling, Cardiovascular: Negative for chest pain, palpitations, and edema, Respiratory: Negative for shortness of breath, cough, wheezing, and pleuritic chest pain, Back: Negative for injury and pain, : Negative for injury, bleeding, discharge, and swelling, MS/Extremity: Negative for injury and deformity, Skin: Negative for injury, rash, and discoloration, Neuro: Negative for headache, weakness, numbness, tingling, and seizure activity. Psych: Negative for depression, anxiety, suicide ideation, homicidal ideation, and hallucinations, Allergy/Immunology: Negative for hives, rash, and allergies, Endocrine: Negative for neck swelling, polydipsia, polyuria, polyphagia, and marked weight changes, Hematologic/Lymphatic: Negative for swollen nodes, abnormal bleeding, and unusual bruising. 09:36 Abdomen/GI: Positive for nausea, diarrhea, abdominal cramps, anorexia, Negative for vomiting, abdominal distension, dysphagia, hematemesis, black/tarry stool, rectal pain, rectal bleeding, bowel incontinence. Exam: 09:36 Constitutional: This is a well developed, well nourished patient who is awake, alert, kdr and in no acute distress. Head/Face: Normocephalic, atraumatic. Eyes: Pupils equal round and reactive to light, extra-ocular motions intact. Lids and lashes normal. Conjunctiva and sclera are non-icteric and not injected. Cornea within normal limits. Periorbital areas with no swelling, redness, or edema. Neck: Trachea midline, no thyromegaly or masses palpated, and no cervical lymphadenopathy. Supple, full range of motion without nuchal rigidity, or vertebral point tenderness. No Meningismus. Chest/axilla: Normal chest wall appearance and motion. Nontender with no deformity. No lesions are appreciated. Cardiovascular: Regular rate and rhythm with a normal S1 and S2. No gallops, murmurs, or rubs. Normal PMI, no JVD. No pulse deficits. Respiratory: Lungs have equal breath sounds bilaterally, clear to auscultation and percussion. No rales, rhonchi or wheezes noted. No increased work of breathing, no retractions or nasal flaring. Back: No spinal tenderness. No costovertebral tenderness. Full range of motion. Skin: Warm, dry with normal turgor. Normal color with no rashes, no lesions, and no evidence of cellulitis. MS/ Extremity: Pulses equal, no cyanosis. Neurovascular intact. Full, normal range of motion. Neuro: Awake and alert, GCS 15, oriented to person, place, time, and situation. Cranial nerves II-XII grossly intact. Motor strength 5/5 in all extremities. Sensory grossly intact. Cerebellar exam normal. Normal gait. Psych: Awake, alert, with orientation to person, place and time. Behavior, mood, and affect are within normal limits. 09:36 Abdomen/GI: Inspection: distension, that is mild, Bowel sounds: normal, Palpation: soft, nontender, in all quadrants. Vital Signs: 08:24 BP 136 / 71; Pulse 89; Resp 22; Temp 97.7(TE); Pulse Ox 99% on R/A; Weight 47.17 kg; ss Pain 0/10; 09:44 BP 132 / 63; Pulse 75; Resp 20; Pulse Ox 99% on R/A; mt 11:09 BP 138 / 60; Pulse 79; Resp 17; Pulse Ox 98% ; ll1 12:12 BP 127 / 59; Pulse 78; Resp 16; Pulse Ox 99% ; Pain 0/10; ll1 MDM: 09:36 Data reviewed: vital signs, nurses notes, lab test result(s), radiologic studies. kdr Counseling: I had a detailed discussion with the patient and/or guardian regarding: the historical points, exam findings, and any diagnostic results supporting the discharge/admit diagnosis, lab results, radiology results. 11:48 Patient medically screened. [facility] 08/15 08:36 Order name: Basic Metabolic Panel; Complete Time: 11:25 [facility] 08/15 08:36 Order name: CBC with Diff; Complete Time: 11:25 [facility] 08/15 08:36 Order name: Hepatic Function; Complete Time: 11:25 [facility] 08/15 08:36 Order name: Lipase; Complete Time: 11:25 [facility] 08/15 11:54 Order name: Stool Culture [facility] 08/15 11:54 Order name: Ova And Parasites [facility] 08/15 08:36 Order name: IV Saline Lock; Complete Time: 09:39 [facility] 08/15 08:36 Order name: Labs collected and sent; Complete Time: 09:29 [facility] 08/15 11:54 Order name: Fecal Leukocyte Stain [facility] 08/15 11:54 Order name: CDIFF bd Administered Medications: 09:47 Drug: NS 0.9% 500 ml Route: IV; Rate: bolus; Site: right hand; tw2 12:16 Follow up: Response: No adverse reaction; RASS: Alert and Calm (0); IV Status: ll1 Completed infusion; IV Intake: 500ml 09:47 Drug: Pepcid 20 mg Route: IVP; Site: right hand; tw2 12:16 Follow up: Response: No adverse reaction; RASS: Alert and Calm (0) ll1 12:16 Follow up: Response: No adverse reaction; RASS: Alert and Calm (0) ll1 Disposition: 08/15/20 11:48 Discharged to Home. Impression: Diarrhea, unspecified. - Condition is Stable. - Discharge Instructions: Diarrhea, Adult, Ugra-pg-Acdq. - Prescriptions for Imodium A- D 2 mg Oral tablet - take 1 tablet by ORAL route every 6 hours As needed after 1st loose stool and 1 tablet (2 mg) after each next bowel movement; do not exceed 16 mg in 24hrs; 20 tablet. Cipro 500 mg Oral Tablet - take 1 tablet by ORAL route every 12 hours for 7 days; 14 tablet. - Medication Reconciliation Form, Thank You Letter, Antibiotic Education form. - Follow up: Private Physician; When: 2 - 3 days; Reason: If symptoms return, Further diagnostic work-up, Recheck today's complaints, Continuance of care, Re-evaluation by your physician. - Problem is new. - Symptoms have improved. Signatures: Dispatcher [employer] EDMS Pietro Fuentes MD MD [facility] America De La Cruz RN RN ss Sari De La Torre RN RN 2 Lennie Teran RN RN ll1 Corrections: (The following items were deleted from the chart) 12:13 11:48 08/15/2020 11:48 Discharged to Home. Impression: Diarrhea, unspecified. Condition ll1 is Stable. Forms are Medication Reconciliation Form, Thank You Letter, Antibiotic Education, Prescription Opioid Use. Follow up: Private Physician; When: 2 - 3 days; Reason: If symptoms return, Further diagnostic work-up, Recheck today's complaints, Continuance of care, Re-evaluation by your physician. Problem is new. Symptoms have improved. kdr
--- NOTE | 2020-08-15 11:48 | ER ---
Nurse's Notes [facility] Name: Yoly Howard Age: 80 yrs Sex: Female : 1940 Arrival Date: 08/15/2020 Time: 08:20 Bed 15 Private MD: Diagnosis: Diarrhea, unspecified Presentation: 08/15 08:24 Chief complaint: Patient states: Diarrhea and episodic abd cramping that began 1 week ss ago. Coronavirus screen: Client denies travel out of the [place] in the last 14 days. Ebola Screen: Patient denies exposure to infectious person. Patient denies travel to an Ebola-affected area in the 21 days before illness onset. Initial Sepsis Screen: Does the patient meet any 2 criteria? No. Patient's initial sepsis screen is negative. Does the patient have a suspected source of infection? No. Patient's initial sepsis screen is negative. Risk Assessment: Do you want to hurt yourself or someone else? Patient reports no desire to harm self or others. Onset of symptoms was August 08, 2020. 08:24 Method Of Arrival: Ambulatory ss 08:24 Acuity: JACLYN 3 ss Historical: - Allergies: 08:26 Codeine; ss 08:26 Flagyl; ss 08:26 Levaquin; ss - Home Meds: 08:26 amlodipine 5 mg tab 1 tab once daily [Active]; aspirin 325 mg Oral tab 1 tab once daily ss [Active]; calcium carbonate 600 mg (1,500 mg) Oral tab [Active]; levothyroxine 25 mcg tab 1 tab once daily [Active]; metoprolol tartrate 25 mg Oral tab 1 tab once daily [Active]; simvastatin 20 mg Oral tab 1 tab once daily [Active]; Vitamin C 1,000 mg Oral tab [Active]; Vitamin D Oral 1000 unit [Active]; - PMHx: 08:26 abdominal pain; High Cholesterol; Hypertension; Nausea; ss - Immunization history:: Adult Immunizations up to date. - Social history:: Smoking status: Patient denies any tobacco usage or history of. Screenin:43 Abuse screen: Denies threats or abuse. Nutritional screening: No deficits noted. tw2 Tuberculosis screening: No symptoms or risk factors identified. Fall Risk Secondary diagnosis (15 points) impaired mobility. Assessment: 09:42 Reassessment: pt requesting to go to the restroom at this time. tw2 10:40 General: Appears in no apparent distress. Behavior is calm, cooperative. Pain: Denies ll1 pain. Neuro: No deficits noted. Cardiovascular: No deficits noted. Respiratory: No deficits noted. GI: Abdomen is flat, Bowel sounds present X 4 quads. Abd is soft X 4 quads Reports diarrhea. : No deficits noted. Vital Signs: 08:24 BP 136 / 71; Pulse 89; Resp 22; Temp 97.7(TE); Pulse Ox 99% on R/A; Weight 47.17 kg; ss Pain 0/10; 09:44 BP 132 / 63; Pulse 75; Resp 20; Pulse Ox 99% on R/A; mt 11:09 BP 138 / 60; Pulse 79; Resp 17; Pulse Ox 98% ; ll1 12:12 BP 127 / 59; Pulse 78; Resp 16; Pulse Ox 99% ; Pain 0/10; ll1 ED Course: 08:20 Patient arrived in ED. ss 08:25 Triage completed. ss 08:26 Arm band placed on right wrist. ss 08:32 Pietro Fuentes MD is Attending Physician. kdr 08:38 Nanci Dukes, PONCHO is Primary Nurse. ph 09:29 Initial lab(s) drawn, by me. Missed attempt(s): 20 gauge in left antecubital area. mt 09:38 Bed in low position. Call light in reach. Side rails up X 1. Pulse ox on. NIBP on. Warm tw2 blanket given. 09:39 Missed attempt(s): 22 gauge in right antecubital area. Bleeding controlled, band aid tw2 applied, catheter tip intact. Inserted saline lock: 24 gauge in right hand, using aseptic technique. 12:15 Stool Culture Sent. ll1 12:15 Ova And Parasites Sent. ll1 12:15 Fecal Leukocyte Stain Sent. ll1 12:16 CDIFF Sent. ll1 12:17 No provider procedures requiring assistance completed. IV discontinued, intact, ll1 bleeding controlled, No redness/swelling at site. Pressure dressing applied. Administered Medications: 09:47 Drug: NS 0.9% 500 ml Route: IV; Rate: bolus; Site: right hand; tw2 12:16 Follow up: Response: No adverse reaction; RASS: Alert and Calm (0); IV Status: ll1 Completed infusion; IV Intake: 500ml 09:47 Drug: Pepcid 20 mg Route: IVP; Site: right hand; tw2 12:16 Follow up: Response: No adverse reaction; RASS: Alert and Calm (0) ll1 12:16 Follow up: Response: No adverse reaction; RASS: Alert and Calm (0) ll1 Intake: 12:16 IV: 500ml; Total: 500ml. ll1 Outcome: 11:48 Discharge ordered by . kdr 12:13 Patient left the ED. ll1 12:13 Discharged to home ambulatory. ll1 12:13 Condition: stable 12:13 Discharge instructions given to patient, Instructed on discharge instructions, follow up and referral plans. medication usage, Demonstrated understanding of instructions, follow-up care, medications, Prescriptions given X 2. Addendum: 08/18/2020 09:38 Addendum: Culture Results: Positive stool culture. Phone call Attempt #1 Pt instructed a a5 to follow-up with Dr. Merritt, pt verbalized understanding to f/u. Stool culture results faxed to Dr. Merritt. Signatures: Pietro Fuentes MD MD kdr Betzy Jeff, RN RN aa5 America De La Cruz RN RN ss Nanci Dukes RN RN Sari De La Torre RN RN 2 Valerie Moser mt, Lynsay, RN RN 1 Corrections: (The following items were deleted from the chart) 08/15 10:59 10:57 General: Appears in no apparent distress. Behavior is calm, cooperative, 1 1 10:59 10:57 Pain: Denies pain. ll1 ll1 10: 10:57 Neuro: No deficits noted. ll1 ll1 10: 10:57 Cardiovascular: No deficits noted. ll1 ll1 10: 10:57 Respiratory: No deficits noted. ll1 ll1 10: 10:57 GI: Abdomen is flat, Bowel sounds present X 4 quads. Abd is soft X 4 quads ll1 Reports diarrhea, 1 10:59 10:57 : No deficits noted. ll1 ll1
[2020-08-15 12:19] VITALS: TEMP 97.7
[2020-08-15 12:23] VITALS: BP 138/60; O2SAT 98
[2020-08-16 14:20] LABS: C.diff Antigen/Toxin Ag neg : Tox neg (NEG : NEG)
== END 2020-08-15 12:13 | disposition home or self-care (01) ==
LOC: ER 08:18
DX: R19.7 Diarrhea, unspecified (principal); Z88.6 Allergy status to analgesic agent; Z88.1 Allergy status to other antibiotic agents; I10 Essential (primary) hypertension; E78.00 Pure hypercholesterolemia, unspecified
CPT/HCPCS: 96361; 87045; 85025; 80048; 36415; 89055; 87177; 80076; 87046; 87209; 87077; 87186; 87324; 83690; 87449; 96374; 99284; J7040

== ENCOUNTER 2021-06-22 08:40 | Emergency (ER) | payer OTHER ==
--- OUTSIDE RECORDS SUMMARY | 2021-06-22 08:43 | XMS REPORT | Continuity of Care Document ---
:1940 Author Organization [facility] t Address 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 Medica l reaction 00 [place] Metronid Propensi Active Nausea And headache [facility] az[facility] to Vomiting 05-29 [facility] - adverse 00:00: Medical reaction 00 [place] Social History Social Habit Start Date Stop Date Quantity Comments Source Sex Assigned At [facility] History of tobacco [facility] sm[facility] - use [facility] Cigarette 2018-06-23 2018-06-23 [facility] - pack-years 00:00:00 00:00:00 [facility] Tobacco use and 2018-06-23 2018-06-23 Never used [facility] - exposure 00:00:00 00:00:00 [facility] Alcohol intake 2018-06-23 2018-06-23 [facility]00:00 non-drinker of Medical Ce nter alcohol (finding) Cigarettes smoked 2018-06-23 2018-06-23 [facility] - current (pack per 00:00:00 00:00:00 [facility] day) - Reported Smoking Status Start Date Stop Date Source Former smoker 2018-06-23 00:00:00 2018-06-23 00:00:00 [facility] - [facility] Medications Ordered Filled Start Stop Current Ordering Indication Dosage Frequency Signature Comments Components Source Medication Medication Date Date Medication? Clinician (SIG) Name Name sucralfate Yes 1g Q.25D Take [address] (CARAFATE) 8-29 by mouth 4 [place] - 1 gram 12:57: (four) Medical tablet 00 times Center daily. aspirin 325 2018- Yes 325mg QD Take [address] MG EC 8-29 mg by [facility] - tablet 12:57: mouth Medical 00 daily. Center ondansetron 0 Yes 4mg Take [address] (ZOFRAN) 4 8-29 by mouth 2 [place] - MG tablet 12:57: (two) Medical 00 times Center daily as needed for Nausea. levothyroxi Yes 50ug Take [address] [facility] ne 8-29 mcg by [facility] - (SYNTHROID, 12:57: mouth Medic al LEVOTHROID) 00 Every Center 50 MCG morning on tablet an empty stomach /. metoprolol Yes 25mg QD Take 25 mg [...] Procedures This patient has no known procedures. Plan of Care Planned Activity Planned Date Details Comments Source Future Scheduled 2020-06-28 INFLUENZA VACCINE (#1) [facility] Test 00:00:00 [code = INFLUENZA Medical Ce nter VACCINE (#1)] Future Scheduled 2005-02-[address] [facility] - Test 00:00:00 WELLNESS (YEAR 2 or Medical Center FIRST YEAR if no IPPE) [code = MEDICARE ANNUAL WELLNESS (YEAR 2 or FIRST YEAR if no IPPE)] Future Scheduled 2004 PNEUMOCOCCAL 65+ YRS [facility] - Test 00:00:00 (1 of 1 - Medical Center [id number]) [code = PNEUMOCOCCAL 65+ YRS (1 of 1 - [id number] PCV13)] Encounters Start End Encounter Admission Attending Care Care Encounter Source Date/Time Date/Time Type Type Clinicians Facility Department ID 2020-11-01 2020-11-01 [facility] [id number] 09:41:29 23:59:00 Encounter angelito Samanthaaugustus Cullen [id number] [place] [id number] [place] [id number] 2020-11-01 2020-11-01 Orders Doctor AWILDA [id number] 00:00:00 00:00:00 Only Unassigned, TIFFANY [id number] [place] [facility] [id number] Results Test Description Test Time Test Comments Results Result Comments Source BLOOD CULTURE 2018-06-29 06:00:00 Test Item Value Reference Range Interpretation Comme nts CULTURE (BEAKER) (test code = 1095) No growth in 5 days BLOOD [id number] 06:00:00 Test Item Value Reference Range Interpretation Comments CULTURE (BEAKER) (test No growth in 5 days code = 1095) CBC W/PLT COUNT & AUTO [id number] 05:48:00 Test Item Value Reference Range Interpretation [...] (BEAKER) (test code = 2801) HEPATIC FUNCTION [id number] 05:39:00 Test Item Value Reference Range Interpretation [...] 74 U/L 6-55 H 347) BASIC METABOLIC [id number] 05:39:00 Test Item Value Reference Range Interpretation [...] APPLICABLE FOR DIALYSIS PATIEN TS. HEPATIC FUNCTION [id number] 10:39:00 Test Item Value Reference Range Interpretation [...] 95 U/L 6-55 H 347) BASIC METABOLIC [id number] 05:39:00 Test Item Value Reference Range Interpretation [...] PATIEN TS. CBC W/PLT COUNT & AUTO [id number] 04:55:00 Test Item Value Reference Range Interpretation [...] (BEAKER) (test code = 2801) URINALYSIS W/ [id number] 22:01:00 Test Item Value Reference Range Interpretation [...] SOURCE(BEAKER) (test code Urine, Clean Catch = 0555) POCT-LACTIC ACID, [id number] 21:41:00 Test Item Value Reference Range Interpretation Comments POC-LACTIC ACID, 1.3 mmol/L 0.9-1.7 [facility] [address] (BEAKER) (test MEREDITH [place] code = 2805) [address] TROPONIN [id number] 20:17:00 Test Item Value Reference Range Interpretation [...] failure, acidosis, acute neurological disease, and persistent tachyarrhythmia.[id number] 20:12:00 Test Item Value Reference Range Interpretation Comments LIPASE (BEAKER) (test code = 749) 56 U/L 8-78 [id number] 20:12:00 Test Item Value Reference Range Interpretation Comments AMYLASE (BEAKER) (test code = 349) 90 U/L 25-125 BASIC METABOLIC [id number] 20:12:00 Test Item Value Reference Range Interpretation [...] APPLICABLE FOR DIALYSIS PATIEN TS. HEPATIC FUNCTION [id number] 20:12:00 Test Item Value Reference Range Interpretation [...] H 347) CBC W/PLT COUNT & AUTO [id number] 19:59:00 Test Item Value Reference Range Interpretation [...] 0-1 PERCENT (BEAKER) (test code = 2801) [id number] 07:40:00 Test Item Value Reference Range Interpretation Comments PHOSPHORUS (BEAKER) (test code = 2.6 mg/dL 2.3-4.7 604) [id number] 07:40:00 Test Item Value Reference Range Interpretation Comments MAGNESIUM (BEAKER) (test code = 2.0 mg/dL 1.6-2.6 627) BASIC METABOLIC [id number] 07:40:00 Test Item Value Reference Range Interpretation [...] APPLICABLE FOR DIALYSIS PATIEN TS. HEPATIC FUNCTION [id number] 07:40:00 Test Item Value Reference Range Interpretation [...] H 347) CBC W/PLT COUNT & AUTO [id number] 06:51:00 Test Item Value Reference Range Interpretation [...] PERCENT (BEAKER) (test code = 2801) TROPONIN [id number] 12:48:00 Test Item Value Reference Range Interpretation [...] acidosis, acute neurological disease, and persistent tachyarrhythmia.HEMOGLOBIN [id number] 09:39:00 Test Item Value Reference Range Interpretation Comments HEMOGLOBIN A1C (BEAKER) (test code = 6.1 % 4.3-6.1 368) TSH/FREE T4 IF [id number] 07:14:00 Test Item Value Reference Range Interpretation Comments THYROID STIMULATING HORMONE 3.28 uIU/mL 0.35-4.94 (BEAKER) (test code = 772) [id number] 06:50:00 Test Item Value Reference Range Interpretation Comments PHOSPHORUS (BEAKER) (test code = 1.8 mg/dL 2.3-4.7 L 604) [id number] 06:50:00 Test Item Value Reference Range Interpretation Comments MAGNESIUM (BEAKER) (test code = 1.9 mg/dL 1.6-2.6 627) BASIC METABOLIC [id number] 06:50:00 Test Item Value Reference Range Interpretation [...] NOT APPLICABLE FOR DIALYSIS PATIEN TS. LIPID [id number] 06:50:00 Test Item Value Reference Range Interpretation [...] 130-159 High 160-189 Very High >=190HEPATIC FUNCTION [id number] 06:50:00 Test Item Value Reference Range Interpretation [...] code = 143 U/L 6-55 H 347) [id number] 06:50:00 Test Item Value Reference Range Interpretation Comments AMYLASE (BEAKER) (test code = 349) 44 U/L 25-125 [id number] 06:50:00 Test Item Value Reference Range Interpretation Comments LIPASE (BEAKER) (test code = 749) 9 U/L 8-78 C-REACTIVE [id number] 06:50:00 Test Item Value Reference Range Interpretation Comments C-REACTIVE PROTEIN (BEAKER) (test 3.20 mg/dL 0.00-0.50 H code = 676) CREATINE KINASE (CK), TOTAL AND [id number] 06:50:00 Test Item Value Reference Range Interpretation Comments CREATINE KINASE TOTAL (BEAKER) 189 U/L 29-200 (test code = 380) CREATINE KINASE-MB (BEAKER) (test 3.0 ng/mL 0.0-6.6 code = 750) CREATINE KINASE-MB INDEX (BEAKER) 1.6 % (test code = 395) CK-MB Reference Range:<6.7 Normal6.7-10.0 Borderline>10.0 AbnormalTROPONIN [id number] 06:50:00 Test Item Value Reference Range Interpretation [...] failure, acidosis, acute neurological disease, and persistent tachyarrhythmia.PT/[id number] 06:41:00 Test Item Value Reference Range Interpretation [...] 0-1 PERCENT (BEAKER) (test code = 2801) [place], [id number] 14:41:00Reason for exam:->recurrent ruq pain,isolated right biliary systemAddendum BeginsREPORT STATUS:A Addendum Fluoroscopy time: 2.4 minutes Number of exposures performed: 8 Radiation dose (Ka,r): 17.4 mGy Signed: Arabella Hidalgo Verified Date/ Time: 07/05/2017 14:41:02 Reading Location: [facility] Diagnostic Imaging Reading Room - [facility] 1[facility].12Addendum EndsAddendum BeginsREPORT STATUS:A Addendum Fluoroscopy time: 2.4 minutes Number of exposures performed: Eight Radiation dose (Ka,r): 17.4 mGy Signed: Arabella Hidalgo Verified Date/Time: 07/05/2017 14:37:54 Reading Location: [facility] Diagnostic Imaging Reading Room -[place] [address].12Addendum EndsFINAL REPORT ERCP History provided: Recurrent right upper quadrant pain Comparison exam: 2011 Cholecystectomy clips are evident. Retrograde injection opacifies dilated common bile duct which is only partially opacified with contrast, and normal visualized intrahepatic biliary ducts. On the final image, a stent was placed extending from the upper common duct distally. Signed: Arabella Hidalgo Verified Date/Time: 06/04/2017 17:18:22 Reading Location: [address] Radiology Reading Room
--- NOTE | 2021-06-22 13:00 | ER ---
Nurse's Notes [facility] Name: Yoly Howard Age: 81 yrs Sex: Female : 1940 Arrival Date: 06/22/2021 Time: 09:19 Bed 26 Private MD: Alyssa Merritt C Diagnosis: Coronavirus infection, unspecified Presentation: 06/22 09:39 Chief complaint: Patient states: cough, sinus congestion, n/v, bodyaches, congestion x sv 2 days. Coronavirus screen: Client denies travel out of the [place] in the last 14 days. Client presents with at least one sign or symptom that may indicate coronavirus-19. Ebola Screen: No symptoms or risks identified at this time. Risk Assessment: Do you want to hurt yourself or someone else? Patient reports no desire to harm self or others. Onset of symptoms was June 20, 2021. 09:39 Method Of Arrival: Ambulatory sv 09:39 Initial Sepsis Screen: Does the patient meet any 2 criteria? RR > 20 per min. No. sv Patient's initial sepsis screen is negative. Does the patient have a suspected source of infection? No. Patient's initial sepsis screen is negative. 09:39 Acuity: JACLYN 4 sv Triage Assessment: 09:42 General: Appears in no apparent distress. uncomfortable, Behavior is calm, cooperative, sv appropriate for age. Pain: Denies pain. Neuro: Level of Consciousness is awake, alert, obeys commands, Oriented to person, place, time, situation, Gait is steady. Respiratory: Respiratory effort is even, unlabored. GI: Reports nausea, vomiting. Historical: - Allergies: 09:39 Codeine; sv 09:39 Flagyl; sv 09:39 Levaquin; sv - PMHx: 09:39 High Cholesterol; Hypertension; sv - Immunization history:: Client reports receiving the 2nd dose of the Covid vaccine, Client reports receiving the 1st dose of the Covid vaccine. - Social history:: Smoking status: Patient denies any tobacco usage or history of. Screenin:00 Abuse screen: Denies threats or abuse. Nutritional screening: No deficits noted. ch5 Tuberculosis screening: No symptoms or risk factors identified. Fall Risk None identified. Assessment: 12:46 Reassessment: Patient and/or family updated on plan of care and expected duration. Pain ch5 level reassessed. General: Appears in no apparent distress. Pain: Quality of pain is described as tender. GI: No deficits noted. GI: No deficits noted. Vital Signs: 09:39 BP 128 / 52; Pulse 81; Resp 24; Temp 97.3; Pulse Ox 98% on R/A; Weight 54.43 kg; Height sv 5 ft. 3 in. (160.02 cm); Pain 0/10; 12:46 BP 139 / 58; Pulse 80; Resp 22; Pulse Ox 97% on R/A; ch5 13:29 BP 122 / 63; Pulse 82; Resp 20; Pulse Ox 99% on R/A; Pain 0/10; ch5 09:39 Body Mass Index 21.26 (54.43 kg, 160.02 cm) sv ED Course: 09:19 Patient arrived in ED. am2 09:19 Alyssa Merritt MD is Private Physician. am2 09:39 Arm band placed on. sv 09:40 Triage completed. 11:02 Rodríguez Mchugh PA is PHCP. [facility] 11:02 Alexandro Rock MD is Attending Physician. [facility] 11:19 Roberto Carlos Michael, PONCHO is Primary Nurse. ch5 12:00 No apparent distress. ch5 12:00 Patient has correct armband on for positive identification. Bed in low position. Call ch5 light in reach. Side rails up X 1. 12:00 No provider procedures requiring assistance completed. Patient did not have IV access ch5 during this emergency room visit. 12:59 Alyssa Merritt MD is Referral Physician. [facility] Administered Medications: 13:15 Drug: Decadron (dexamethasone) 10 mg Route: IM; Site: left gluteus; ch5 13:20 Follow up: Response: No adverse reaction ch5 Outcome: 12:00 Discharged to home ambulatory. ch5 12:00 Condition: good 12:00 Discharge instructions given to patient. 13:00 Discharge ordered by . [facility] 13:30 Patient left the ED. ch5 Signatures: Lorraine Vasquez RN RN Rodríguez Mchugh PA PA [facility] Carole Dacosta 2 Roberto Carlos Michael RN RN ch5 Corrections: (The following items were deleted from the chart) 09:39 09:39 PMHx: Nausea; sv sv 09:39 09:39 PMHx: abdominal pain; sv sv 41 09:39 Pulse Ox 98% RA; Temp 97.3F; sv sv 43 09:39 Acuity: JACLYN 3 sv sv
--- NOTE | 2021-06-22 13:01 | EDPHYS ---
Physician Documentation [facility] Name: Yoly Howard Age: 81 yrs Sex: Female : 1940 Arrival Date: 06/22/2021 Time: 09:19 Bed 26 Private MD: Alyssa Merritt C ED Physician Alexandro Rock HPI: 06/22 11:38 This 81 yrs old Female presents to ER via Ambulatory with complaints of jmm General Weakness, Nausea, bodyaches. 11:38 The patient or guardian reports cough. Onset: The symptoms/episode began/occurred jmm gradually, 2 day(s) ago. Modifying factors: The symptoms are alleviated by nothing. the symptoms are aggravated by nothing. Associated signs and symptoms: Pertinent positives: sore throat, Pertinent negatives: chest pain, diarrhea. It is unknown whether or not the patient has had similar symptoms in the past. Is an 81-year-old female with a history of hypertension, hyperlipidemia that presents emerged department with complaints of cough, congestion, right ear pain, sore throat beginning approximately 2 days ago. Patient denies known fever but states she did have chills on Saturday night. Denies vomiting, denies shortness of breath.. Historical: - Allergies: 09:39 Codeine; sv 09:39 Flagyl; sv 09:39 Levaquin; sv - PMHx: 09:39 High Cholesterol; Hypertension; sv - Immunization history:: Client reports receiving the 2nd dose of the Covid vaccine, Client reports receiving the 1st dose of the Covid vaccine. - Social history:: Smoking status: Patient denies any tobacco usage or history of. ROS: 11:38 Constitutional: Positive for body aches, fever. jmm 11:38 ENT: Positive for ear pain, sore throat. 11:38 Respiratory: Positive for cough, shortness of breath. 11:38 Abdomen/GI: Negative for vomiting, diarrhea. 11:38 All other systems are negative. Exam: 11:38 Constitutional: This is a well developed, well nourished patient who is awake, alert, jmm and in no acute distress. Head/Face: atraumatic. Eyes: EOMI, no conjunctival erythema appreciated 11:38 Neck: Trachea midline, Supple Chest/axilla: Normal chest wall appearance and motion. Cardiovascular: Regular rate and rhythm. No edema appreciated 11:38 Abdomen/GI: Non distended, soft Back: Normal ROM Skin: General appearance color normal MS/ Extremity: Moves all extremities, no obvious deformities appreciated, no edema noted to the lower extremities Neuro: Awake and alert, normal gait Psych: Behavior is normal, Mood is normal, Patient is cooperative and pleasant 11:38 ENT: Posterior pharynx: erythema, that is mild. 11:38 Respiratory: the patient does not display signs of respiratory distress, Respirations: normal, Breath sounds: are clear throughout. Vital Signs: 09:39 BP 128 / 52; Pulse 81; Resp 24; Temp 97.3; Pulse Ox 98% on R/A; Weight 54.43 kg; Height sv 5 ft. 3 in. (160.02 cm); Pain 0/10; 12:46 BP 139 / 58; Pulse 80; Resp 22; Pulse Ox 97% on R/A; ch5 13:29 BP 122 / 63; Pulse 82; Resp 20; Pulse Ox 99% on R/A; Pain 0/10; ch5 09:39 Body Mass Index 21.26 (54.43 kg, 160.02 cm) sv MDM: 11:11 Patient medically screened. alfie 12:59 Data reviewed: vital signs, nurses notes. Counseling: I had a detailed discussion with jl the patient and/or guardian regarding: the historical points, exam findings, and any diagnostic results supporting the discharge/admit diagnosis, lab results, the need for outpatient follow up, to return to the emergency department if symptoms worsen or persist or if there are any questions or concerns that arise at home. ED course: Patient is alert nontoxic in appearance in the ED. No signs of respiratory distress. Patient will be treated with ivermectin and azithromycin and otherwise given strict return precautions. Patient understood and agrees plan of care.. 06/22 12:22 Order name: Strep; Complete Time: 13:47 [facility] 06/22 12:27 Order name: SARS-COV-2 RT PCR; Complete Time: 13:47 [facility] 06/22 13:16 Order name: Throat Culture EDMS Administered Medications: 13:15 Drug: Decadron (dexamethasone) 10 mg Route: IM; Site: left gluteus; ch5 13:20 Follow up: Response: No adverse reaction ch5 Disposition: 14:52 Co-signature as Attending Physician, Alexandro Rock MD I agree with the assessment and [facility] plan of care. Disposition Summary: 06/22/21 13:00 Discharge Ordered Location: Home [facility] Condition: Stable [facility] Diagnosis - Coronavirus infection, unspecified jm Followup: [facility] - With: Alyssa Merritt MD - When: 2 - 3 days - Reason: Recheck today's complaints, Continuance of care, Re-evaluation by your physician Discharge Instructions: - Discharge Summary Sheet [facility] - COVID-19 [facility] Forms: - Medication Reconciliation Form [facility] - Thank You Letter [facility] - Antibiotic Education [facility] - Prescription Opioid Use [facility] Prescriptions: - ivermectin 3 mg Oral tablet - take 6 tablet by ORAL route as directed Please take 6 tabs by mouth now and jmm another 6 tabs by mouth on day 3; 12 tablet; Refills: 0, Product Selection Permitted - Zithromax Z-Roosevelt 250 mg Oral Tablet - take 1 tablet by ORAL route as directed for 5 days Day 1 - take two (2) tablets [facility] one time. Day 2, 3, 4 , 5 take one (1) tablet once daily.; 6 tablet; Refills: 0, Product Selection Permitted - albuterol sulfate 90 mcg/actuation Inhalation HFA aerosol inhaler - inhale 2 puff by INHALATION route every 4 hours; 1 Pump; Refills: 0, Product jm Selection Permitted Signatures: Dispatcher [employer] EDLorraine Campoverde, RN Alexandro Patel MD MD cha Mickail, Joel, PA PA Roberto Carlos Isidro, RN RN ch5 Corrections: (The following items were deleted from the chart) 09:39 09:39 PMHx: Nausea; sv sv 09:39 09:39 PMHx: abdominal pain; sv sv 11:10 09:42 CORONAVIRUS+MR.LAB.BRZ ordered. EDMS EDMS
[2021-06-22] MEDS ORDERED: dexAMETHasone 10 MG/ML VIAL ONE (13:35)
[2021-06-22 13:36] VITALS: TEMP 97.3
[2021-06-22 13:38] VITALS: BP 122/63; O2SAT 99
== END 2021-06-22 13:30 | disposition home or self-care (01) ==
LOC: ER 08:40
DX: U07.1 COVID-19 (principal); I10 Essential (primary) hypertension; Z88.1 Allergy status to other antibiotic agents; Z88.5 Allergy status to narcotic agent; Z88.8 Allergy status to other drugs, medicaments and biological substances
CPT/HCPCS: 87070; 87081; 96372; 99283; U0003; J1100

== ENCOUNTER 2023-03-26 08:14 | Emergency (ER) | payer OTHER ==
--- OUTSIDE RECORDS SUMMARY | 2023-03-26 08:20 | XMS REPORT | Continuity of Care Document ---
:1940 Author Organization [facility] t Address [address] [place] [address] [address] [place] [address] Care Team Providers Name Role Phone Jayro Merritt MD Primary Care Physician Emy Shearer MD Attending Clinician EMY SHEARER Attending Clinician Unavailable Doctor Unassigned, [place] Attending Clinician Unavailable DAMON KESSLER Attending Clinician Unavailable RICH BOONE Attending Clinician Unavailable MARY TAYLOR Admitting Clinician Unavailable RICH BOONE Admitting Clinician Unavailable Payers Payer Name Policy Type Policy Number Effective Date Expiration Date S ource Problems Condition Condition Condition Status Onset Resolution Last Treating Co mments Source Name Details Category Date Date Treatment Clinician Date Nausea and Nausea and Disease Active [facility] vomiting, vomiting, 8 [facility] intractabi intractabi 00:00: Me dical lity of lity of 00 Center vomiting vomiting not not specified, specified, unspecifie unspecifie d vomiting d vomiting type type Hypothyroi Hypothyroi Disease Active [facility] dism dism [facility] Transamini Transamini Disease Active [facility] tis tis 8 [facility] 00:[facility]: Medical [facility] Center 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, cbd, 06-20 [facility] acquired acquired 00:00: Medica l 00 [place] RUQ RUQ Disease Active [facility] abdominal abdominal 06-19 [facility] pain pain 00:00: Medical 00 [place] Essential Essential Disease Active [facility] hypertensi hypertensi 06-19 Jessica kes on on 00:00: Medical 00 [place] Abnormal Abnormal Disease Active [facility] liver liver 06-19 [facility] enzymes enzymes 00:00: [facility] [place] Abdominal Abdominal Disease Active Uni vers pain pain 05-22 ity of 00:00: [place] 00 Medical Branch 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 ity of malnutrit[place]rit[place], [facility] moderate moderate Branch Infection Infection Disease Active Uni vers 05-22 ity of 00:00: [place] [facility] Pain of Pain of Disease Active Univers upper upper 7- ity of abdomen abdomen 00:00: [place] [facility] Colitis Colitis Disease Active Univers 05-02 ity of 00:00: [place] 00 Medical Branch Allergies, Adverse Reactions, Alerts Allergy Allergy Status Severity Reaction(s) Onset Inactive Treating Comm ents Source Name Type Date Date Clinician Levoflox Propensi Active Nausea And headache [facility] ac[facility] to Vomiting, 06-23 [facility] adverse Other (See 00:00: Medic al reaction Comments) 00 Cente r s Codeine Propensi Active Can't [facility] ty to 05-29 recall [facility] adverse 00:00: reaction. Medica l reaction 00 [place] s Metronid Propensi Active Nausea And headache [facility] azole ty to Vomiting 05-29 [facility] adverse 00:00: Medical reaction 00 [place] s Metronid Propensi Active Nausea Univer s azole ty to and/or 05-04 ity of Hcl adverse Vomiting 00:00: [place] reaction 00 Medical s Branch METRONID DRUG Active N/V Univers AZOLE INGREDI 05-04 ity of HCL 00:00: [place] 00 Medical Branch Codeine Propensi Active Unknown - Unknown, Un tosha ty to See comments 04-28 pt ity of adverse 00:00: reports [place] reaction 00 childhood Medic al s allergy Branch CODEINE DRUG Active Unknown-Cmnt Uni vers INGREDI 04-28 ity of 00:00: [address] Social History Social Habit Start Date Stop Date Quantity Comments Source History of tobacco Current smoker [facility] use [facility] Alcohol intake 2018-06-23 2018-06-[address] [facility] 00:00:00 00:00:00 non-drinker of Medical Ce nter alcohol (finding) Cigarettes smoked 2018-06-23 2018-06-[address] [facility] current (pack per 00:00:00 00:00:00 [facility] day) - Reported Cigarette 2018-06-23 2018-06-[address] [facility] pack-years 00:00:00 00:00:00 [facility] Tobacco use and 2018-01-10 2018-01-10 Never used Universit y of exposure 00:00:00 00:00:00 [facility] Alcohol Comment 2017-05-04 2017-05-04 rare Universit y of 00:00:00 00:00:00 [facility] Sex Ass[birth year] At [birth year] HORACE Sherwood Jessica kes 00:00:00 00:00:00 [facility] Smoking Status Start Date Stop Date Source Former smoker 2018-01-10 00:00:00 2018-01-10 00:00:00 Universi ty [facility] Medications Ordered Filled Start Stop Current Ordering Indication Dosage Frequency Signature Comments Components Source Medication Medication Date Date Medication? Clinician (SIG) Name Name barium 2020- No 700mg 700 mg, Univer s sulfate 11-01 Oral, ity of (E-Z DISK) 17:45: 16:25 ONCE, 1 Enrique as tablet 700 00 :00 dose, Tue Medi katie mg 11/01/20 at Branch 1145, Routine barium No 340g 340 g, Univers sulfate 11-01 Oral, ity of (LIQUID E-Z 16:45: 16:10 [place] 1 [place] 60 % 00 :00 dose, Tue Med ical (w/v) oral 11/01/20 at Bran ch suspension 1045, 340 g Routine sucralfate Yes 1g Q.25D Take [address] (CARAFATE) 8-29 by mouth 4 [place] 1 gram 12:57: (four) Medical tablet 00 times Center daily. aspirin 325 2018-0 Yes 325mg QD Take [address] MG EC 8-29 mg by [facility] tablet 12:57: mouth Medical 00 daily. Center ondansetron 2017-0 Yes 4mg Take [address] (ZOFRAN) 4 8-29 by mouth 2 [place] MG tablet 12:57: (two) Medical 00 times Center daily as needed for Nausea. levothyroxi 2018-0 Yes 50ug Take [address] ne 8-29 mcg by [facility] (SYNTHROID, 12:57: mouth Medic al LEVOTHROID) 00 Every Center 50 MCG morning on tablet an empty stomach 1/. metoprolol 2017-0 Yes 25mg QD Take [address] (TOPROL-XL) 8-29 by mouth Luke s 25 MG 24 hr 12:57: daily. Medi katie tablet 00 Center OMEPRAZOLE 2017-0 Yes 1{tbl} QD Take [address] ORAL 8-29 tablet by [facility] 12:57: mouth Medical 00 daily . [place] calcium 2017-0 Yes 600mg Take 600 [facility] carbonate/v 8-29 mg by [facility] itamin D3 12:57: mouth. Medica l (CALTRATE 00 Center WITH VITAMIN D3 ORAL) amLODIPine 2017-0 Yes 5mg QD Take [address] (NORVASC) 5 8-29 by mouth Luke s MG tablet 12:57: daily. Medica l 00 Center sucralfate 2018-0 Yes 1g Q.25D Take [address] (CARAFATE) 8-29 by mouth 4 [place] 1 gram 12:57: (four) Medical tablet 00 times Center daily. aspirin 325 2018-0 Yes 325mg QD Take [address] MG EC 8-29 mg by [facility] tablet 12:57: mouth Medical 00 daily. Center ondansetron 2018-0 Yes 4mg Take [address] (ZOFRAN) 4 8-29 by mouth 2 [place] MG tablet 12:57: (two) Medical 00 times Center daily as needed for Nausea. levothyroxi 2018-0 Yes 50ug Take [address] ne 8-29 mcg by [facility]ukes (SYNTHROID, 12:57: mouth Medic al LEVOTHROID) 00 Every Center 50 MCG morning on tablet an empty stomach /. metoprolol Yes 25mg QD Take [address] (TOPROL-XL) 8-29 by mouth Luke s 25 MG 24 hr 12:57: daily. Medi katie tablet 00 Center OMEPRAZOLE 2017-0 Yes 1{tbl} QD Take [address] ORAL 8-29 tablet by [facility]ukes 12:57: mouth Medical 00 daily . Center calcium Yes 600mg Take 600 [facility] t carbonate/v 8-29 mg by [facility] itamin D3 12:57: mouth. Medica l (CALTRATE 00 Center WITH VITAMIN D3 ORAL) amLODIPine Yes 5mg QD Take [address] (NORVASC) 5 8-29 by mouth Luke s MG tablet 12:57: daily. Medica l 00 Center simvastatin Yes 20mg QD Take [address] (ZOCOR) 20 8-29 tablet (20 [place] MG tablet 00:00: mg total) Med ical 00 by mouth Center nightly Either you take pravastati n or simvastati n for cholestero l but not both. simvastatin Yes 20mg QD Take [address] (ZOCOR) 20 8-29 tablet (20 [place] MG tablet 00:00: mg total) Med ical 00 by mouth Center nightly Either you take pravastati n or simvastati n for cholestero l but not both. promethazin Yes 12.5mg Take [address] e 8-25 tablet [facility]ukes (PHENERGAN) 00:00: (12.5 mg Me dical 12.5 MG 00 total) by Center tablet mouth every 6 (six) hours as needed for Nausea. promethazin Yes 12.5mg Take [address] e 8-25 tablet [facility] (PHENERGAN) 00:00: (12.5 mg Me dical 12.5 MG 00 total) by Center tablet mouth every 6 (six) hours as needed for Nausea. metoprolol 0 Yes 25mg Take 25 mg U nivers succinate 3-14 by mouth ity of XL 25 mg 24 15:22: [place]. [place] tablet 16 Medical Branch Levothyroxi Yes 50ug Take 50 Uni vers ne 50 mcg 3-14 mcg by ity of capsule 15:22: mouth [place] 16 daily. Medical Indication Branch s: take one half tablet daily simvastatin Yes 20mg Take 20 mg Univers 20 mg 3-14 by mouth ity of tablet 15:22: at [place] [address] bedtime. Medical Branch amLODIPine Yes 5mg Take 5 mg Un tosha 5 mg tablet 3-14 by mouth ity of 15:22: daily. [place] [address] Medical Branch MULTIVIT-IA Yes Take by Uni vers NERALS/FERR 3-14 mouth. ity of OUS FUM 15:22: [place] ([place] [address] Medical VITAMIN Branch ORAL) vitamin C Yes 1000mg Take 1,000 Univers with baldomero 3-14 mg by ity of hips 15:22: mouth [place] (VITAMIN C) 16 daily. Medica l 1,000 mg Branch tablet ERGOCALCIFE Yes Take by Uni vers ROL, 3-14 mouth ity of VITAMIN D2, 15:22: daily. Kori oliveira (VITAMIN D 16 Medical ORAL) Branch aspirin 325 Yes 325mg Take 325 U nivers mg tablet 3-14 mg by ity of 15:22: mouth [place] 16 daily. Medical Branch metoprolol Yes 25mg Take 25 mg U nivers succinate 3-14 by mouth ity of XL 25 mg 24 15:22: daily. [place] olive[place] hr [facility] 16 Medical Branch Levothyroxi Yes 50ug Take 50 Uni vers ne 50 mcg 3-14 mcg by ity of capsule 15:22: mouth [place] 16 daily. Medical Indication Branch s: take one half tablet daily simvastatin Yes 20mg Take 20 mg Univers 20 mg 3-14 by mouth ity of tablet 15:22: at [place] [address] bedtime. Medical Branch amLODIPine Yes 5mg Take 5 mg Un tosha 5 mg tablet 3-14 by mouth ity of 15:22: daily. [place] [address] Medical Branch MULTIVIT-IA Yes Take by Uni vers NERALS/FERR 3-14 mouth. ity of OUS FUM 15:22: [place] ([place] [address] Medical VITAMIN Branch ORAL) vitamin C Yes 1000mg Take 1,000 Univers with baldomero 3-14 mg by ity of hips 15:22: mouth [place] (VITAMIN C) 16 daily. Medica l 1,000 mg Branch tablet ERGOCALCIFE Yes Take by Uni vers ROL, 3-14 mouth ity of VITAMIN D2, 15:22: daily. [place] (VITAMIN D 16 Medical ORAL) Branch aspirin 325 2017- Yes 325mg Take 325 U nivers mg tablet 3-14 mg by ity of 15:22: mouth [place] 16 daily. Medical Branch traMADOL 50 Yes 50mg Take 1 Univ ers mg tablet 8-04 tablet by ity o f 00:00: mouth [place] 00 every 8 Medical (eight) Branch hours as needed for Pain (scale 4-6). proMETHazin Yes 25mg Take 1 Univ ers e 25 mg 8-04 tablet by ity of tablet 00:00: mouth [place] 00 every 8 Medical (eight) Branch hours as needed for Nausea and Vomiting (N/V). traMADOL 50 Yes 50mg Take 1 Univ ers mg tablet 8-04 tablet by ity o f 00:00: mouth [place] 00 every 8 Medical (eight) Branch hours as needed for Pain (scale 4-6). proMETHazin 2016- Yes 25mg Take 1 Univ ers e 25 mg 8-04 tablet by ity of tablet 00:00: mouth [place] 00 every 8 Medical (eight) Branch hours as needed for Nausea and Vomiting (N/V). ZOFRAN ODT 2016-0 Yes 4mg Take 1 Unive rs 4 mg 7-02 tablet by ity of disintegrat 00:00: mouth [place] ing tablet 00 every 8 Medica l (eight) Branch hours as needed for Nausea and Vomiting (N/V). ZOFRAN ODT 2016-0 Yes 4mg Take 1 Unive rs 4 mg 7-02 tablet by ity of disintegrat 00:00: mouth [place] ing tablet 00 every 8 Medica l (eight) Branch hours as needed for Nausea and Vomiting (N/V). Procedures Procedure Date / Time Performed Performing Clinician Sour e [place] BARIUM SWALLOW 2020-11-01 16:38:07 Emy Shearer [facility] ESOPHAGUS Medical Branch ASSIGNMENT OF BENEFITS 2020-11-01 15:38:30 Doctor Unassigned, No [facility] Name Medical Branch Plan of Care Planned Activity Planned Date Details Comments Source Future Scheduled 2020-06-28 INFLUENZA VACCINE (#1) [facility] 00:00:00 [code = INFLUENZA Medical Ce nter VACCINE (#1)] Future Scheduled 2005-02-[address] [facility] Test 00:00:00 WELLNESS (YEAR 2 or Medical Center FIRST YEAR if no IPPE) [code = MEDICARE ANNUAL WELLNESS (YEAR 2 or FIRST YEAR if no IPPE)] Future Scheduled 2004 PNEUMOCOCCAL 65+ YRS [facility] Test 00:00:00 (1 of 1 - Medical Center [id number] PCV13) [code = PNEUMOCOCCAL 65+ YRS (1 of 1 - [id number] PCV13)] Encounters Start End Encounter Admission Attending Care Care Encounter Source Date/Time Date/Time Type Type Clinicians Facility Department ID 2020-11-01 2020-11-01 [place] [id number] [facility] 09:41:29 23:59:00 Encounter eEmy [id number] ity of [place] [id number] [facility] s [place] [id number] [facility] 807 Branch 2020-11-01 2020-11-01 [facility] [id number] 09:41:29 23:59:00 Encounter e, Emy Cullen [id number] [place] [id number] [place] [id number] 2020-11-01 2020-11-01 Outpatient R [facility] [id number] Univers 00:00:00 00:00:00 EMY Delgado o f [facility] 2020-11-01 2020-11-01 Orders Doctor AWILDA [id number] Univers 00:00:00 00:00:00 Only Unassigned, TIFFANY [id number] ity of [place] [facility] [id number] [facility] 009 Branch 2020-11-01 2020-11-01 Orders Doctor AWILDA [id number] 00:00:00 00:00:00 Only Unassigned, [place] [id number] [place] [facility] [id number] Results Test Description Test Test Results Result Source Time Comments Comments [place] BARIUM 2020-10- HISTORY: Dysphagia. Unive rsity of SWALLOW 05 TECHNIQUE: Barium Krista M edical ESOPHAGUS 17:19:40 swallow/esophagram were B [place] obtained using overheadradiography technique as well as digital fluoroscopic technique done by mewith the patient in multiple positions. Additional evaluation was also done using barium pill. FINDINGS: Swallowing function appear normal. Esophagus appears of normalsize and shape with no focal mucosal lesions. No stricture or diverticulaseen. I was unable to demonstrate hiatal hernia with Valsalva technique. Nogastroesophageal reflux. Sluggish peristalsis was noted in the loweresophagus, along with some reverse peristalsis and tertiary contractions inthe middle/lower esophagus, allowing prolonged retention of the barium inthe esophageal lumen. CONCLUSIONS:1. Lower esophageal dysmotility.2. Patient demonstrated some difficulty in swallowing barium pill, required3 attempts for the peel to go from oropharynx into the lower esophagus. Atthe EG junction, several attempts of swallowing using water as well asbarium required for the barium pill to enter the gastric chamber. [place], [place] Results Inft User - 11/01/2020 11:20 AM CSTHISTORY: Dysphagia.TECHNIQUE: Barium swallow/esophagram were obtained using overheadradiography technique as well as digital fluoroscopic technique done by mewith the patient in multiple positions.Additional evaluation was also done using barium pill.FINDINGS: Swallowing function appear normal. Esophagus appears of normalsize and shape with no focal mucosal lesions. No stricture or diverticulaseen. I was unable to demonstrate hiatal hernia with Valsalva technique. Nogastroesophageal reflux. Sluggish peristalsis was noted in the loweresophagus, along with some reverse peristalsis and tertiary contractions inthe middle/lower esophagus, allowing prolonged retention of the barium inthe esophageal lumen.CONCLUSIONS:1. Lower esophageal dysmotility.2. Patient demonstrated some difficulty in swallowing barium pill, required3 attempts for the peel to go from oropharynx into the lower esophagus. Atthe EG junction, several attempts of swallowing using water as well asbarium required for the barium pill to enter the gastric chamber. BLOOD CULTURE 2018-06-29 06:00:00 Test Item Value Reference Range Interpretation Comme nts CULTURE (BEAKER) (test code = 1095) No growth in 5 days BLOOD [id number] 06:00:00 Test Item Value Reference Range Interpretation Comments CULTURE (BEAKER) (test No growth in 5 days code = 1095) CBC W/PLT COUNT & AUTO [id number] 05:48:00 Test Item Value Reference Range Interpretation [...] (BEAKER) (test code = 2801) HEPATIC FUNCTION [id number] 05:39:00 Test Item Value Reference Range Interpretation [...] 74 U/L 6-55 H 347) BASIC METABOLIC [id number] 05:39:00 Test Item Value Reference Range Interpretation [...] APPLICABLE FOR DIALYSIS PATIEN TS. HEPATIC FUNCTION [id number] 10:39:00 Test Item Value Reference Range Interpretation [...] 95 U/L 6-55 H 347) BASIC METABOLIC [id number] 05:39:00 Test Item Value Reference Range Interpretation [...] PATIEN TS. CBC W/PLT COUNT & AUTO [id number] 04:55:00 Test Item Value Reference Range Interpretation [...] (BEAKER) (test code = 2801) URINALYSIS W/ [id number] 22:01:00 Test Item Value Reference Range Interpretation [...] Urine, Clean Catch = 2795) POCT-LACTIC ACID, [id number] 21:41:00 Test Item Value Reference Range Interpretation Comments POC-LACTIC ACID, 1.3 mmol/L 0.9-1.7 TESTED AT [facility] [address] (BEAKER) (test [facility] code = 2805) [address] TROPONIN [id number] 20:17:00 Test Item Value Reference Range Interpretation [...] failure, acidosis, acute neurological disease, and persistent tachyarrhythmia.[id number] 20:12:00 Test Item Value Reference Range Interpretation Comments LIPASE (BEAKER) (test code = 749) 56 U/L 8-78 [id number] 20:12:00 Test Item Value Reference Range Interpretation Comments AMYLASE (BEAKER) (test code = 349) 90 U/L 25-125 BASIC METABOLIC [id number] 20:12:00 Test Item Value Reference Range Interpretation [...] APPLICABLE FOR DIALYSIS PATIEN TS. HEPATIC FUNCTION [id number] 20:12:00 Test Item Value Reference Range Interpretation [...] H 347) CBC W/PLT COUNT & AUTO [id number] 19:59:00 Test Item Value Reference Range Interpretation [...] 0-1 PERCENT (BEAKER) (test code = 2801) [id number] 07:40:00 Test Item Value Reference Range Interpretation Comments PHOSPHORUS (BEAKER) (test code = 2.6 mg/dL 2.3-4.7 604) [id number] 07:40:00 Test Item Value Reference Range Interpretation Comments MAGNESIUM (BEAKER) (test code = 2.0 mg/dL 1.6-2.6 627) BASIC METABOLIC [id number] 07:40:00 Test Item Value Reference Range Interpretation [...] APPLICABLE FOR DIALYSIS PATIEN TS. HEPATIC FUNCTION [id number] 07:40:00 Test Item Value Reference Range Interpretation [...] H 347) CBC W/PLT COUNT & AUTO [id number] 06:51:00 Test Item Value Reference Range Interpretation [...] PERCENT (BEAKER) (test code = 2801) TROPONIN [id number] 12:48:00 Test Item Value Reference Range Interpretation [...] acidosis, acute neurological disease, and persistent tachyarrhythmia.HEMOGLOBIN [id number] 09:39:00 Test Item Value Reference Range Interpretation Comments HEMOGLOBIN A1C (BEAKER) (test code = 6.1 % 4.3-6.1 368) TSH/FREE T4 IF [id number] 07:14:00 Test Item Value Reference Range Interpretation Comments THYROID STIMULATING HORMONE 3.28 uIU/mL 0.35-4.94 (BEAKER) (test code = 772) [id number] 06:50:00 Test Item Value Reference Range Interpretation Comments LIPASE (BEAKER) (test code = 749) 9 U/L 8-78 C-REACTIVE [id number] 06:50:00 Test Item Value Reference Range Interpretation Comments C-REACTIVE PROTEIN (BEAKER) (test 3.20 mg/dL 0.00-0.50 H code = 676) CREATINE KINASE (CK), TOTAL AND [id number] 06:50:00 Test Item Value Reference Range Interpretation Comments CREATINE KINASE TOTAL (BEAKER) 189 U/L 29-200 (test code = 380) CREATINE KINASE-MB (BEAKER) (test 3.0 ng/mL 0.0-6.6 code = 750) CREATINE KINASE-MB INDEX (BEAKER) 1.6 % (test code = 395) CK-MB Reference Range:<6.7 Normal6.7-10.0 Borderline>10.0 AbnormalTROPONIN [id number] 06:50:00 Test Item Value Reference Range Interpretation [...] failure, acidosis, acute neurological disease, and persistent tachyarrhythmia.[id number] 06:50:00 Test Item Value Reference Range Interpretation Comments PHOSPHORUS (BEAKER) (test code = 1.8 mg/dL 2.3-4.7 L 604) [id number] 06:50:00 Test Item Value Reference Range Interpretation Comments MAGNESIUM (BEAKER) (test code = 1.9 mg/dL 1.6-2.6 627) BASIC METABOLIC [id number] 06:50:00 Test Item Value Reference Range Interpretation [...] NOT APPLICABLE FOR DIALYSIS PATIEN TS. LIPID [id number] 06:50:00 Test Item Value Reference Range Interpretation Comments TRIGLYCERIDES (BEAKER) (test code = 64 mg/dL 540) CHOLESTEROL (BEAKER) (test code = 95 mg/dL 631) HDL CHOLESTEROL (BEAKER) (test code 46 mg/dL = 976) LDL CHOLESTEROL CALCULATED (BEAKER) 36 mg/dL (test code = 633) Triglyceride Reference Range: Low Risk <150 Borderline 150-199 High Risk 200- 499 Very High Risk >=500Cholesterol Reference Range: Low Risk <200 Borderline 200-239 High Risk >240HDL Cholesterol Reference Range: Low Risk >=60 High Risk <40LDL Cholesterol Reference Range: Optimal <100 Near Optimal 100-129 Borderline 130-159 High 160-189 Very High >=190HEPATIC FUNCTION [id number] 06:50:00 Test Item Value Reference Range Interpretation [...] code = 143 U/L 6-55 H 347) [id number] 06:50:00 Test Item Value Reference Range Interpretation Comments AMYLASE (BEAKER) (test code = 349) 44 U/L 25-125 [id number] 06:41:00 Test Item Value Reference Range Interpretation Comments PROTIME (BEAKER) (test code = 16.3 seconds 11.7-14.7 H 759) INR (BEAKER) (test code = 370) 1.3 <=5.9 PARTIAL THROMBOPLASTIN TIME 39.1 seconds 22.5-36.0 H (BEAKER) (test code = 760) RECOMMENDED COUMADIN/WARFARIN INR THERAPY RANGESSTANDARD DOSE: 2.0 - 3.0 Includes: PROPHYLAXIS for venous thrombosis, systemic embolization; TREATMENT for venous thrombosis and/or pulmonary embolus.HIGH RISK: Target INR is 2.5-3.5 for patients with mechanical heart valves.CBC W/PLT COUNT & AUTO [id number] 06:32:00 Test Item Value Reference Range Interpretation [...] 0-1 PERCENT (BEAKER) (test code = 2801) DC, [id number] 14:41:00Reason for exam:->recurrent ruq pain,isolated right biliary systemAddendum BeginsREPORT STATUS:A Addendum Fluoroscopy time: 2.4 minutes Number ofexposures performed: 8 Radiation dose (Ka,r): 17.4 mGy Signed: Arablela Hidalgo Verified Date/Time: 07/05/2017 14:41:02 Reading Location: [facility] Diagnostic Imaging Reading Room [place] [address].Addendum EndsAddendum BeginsREPORT STATUS:A Addendum Fluoroscopy time: 2.4 minutes Number of exposures performed: Eight Radiation dose (Ka,r): 17.4 mGy Signed: Arabella Hidalgo Verified Date/Time: 07/05/2017 14:37:54 Reading Location: [facility] Diagnostic Imaging Reading Room [place] [address].Addendum EndsFINAL REPORT ERCP History provided: Recurrent right upperquadrant pain Comparison exam: 2010 Cholecystectomy clips are evident. Retrograde injection opacifies dilated common bile duct which is only partially opacified with contrast, and normal visualized intrahepatic biliary ducts. On the final image, a stent was placed extending from the upper common duct distally. Signed: Arabella Hidalgo Verified Date/Time: 06/04/2017 17:18:22 Reading Location: [address] Radiology Reading Room
[2023-03-26 09:04] LABS: Absolute Lymphocytes (CBC) 2.2 K/uL (0.7-4.9); Lymphocytes % 22.7 % (15.3-44.8); MCV 86.5 fL (80-100); MPV 6.6 fL (7.6-11.3); RBC Red Blood Cell Count 4.05 M/uL (3.86-4.86)
[2023-03-26 09:17] LABS: Albumin 3.8 g/dL (3.4-5.0); Bilirubin Total 0.5 mg/dL (0.2-1.0); Potassium 3.8 mEq/L (3.5-5.1); Protein, Total 7.6 g/dL (6.4-8.2)
[2023-03-26 09:17] LABS: Specific Gravity 1.006 (1.005-1.030); Urine Bacteria 20-50 /HPF (<20); Urine Bilirubin NEGATIVE (Negative); Urine Blood Negative (Negative); Urine Clarity Clear (Clear); Urine Color Dark-Yellow (Yellow); Urine Crystals Unidentified Few /HPF (None Seen); Urine Glucose NEGATIVE (Negative); Urine Mucus Slight /HPF (None Seen); Urine Protein NEGATIVE (Negative); Urine RBC <5 /HPF (None Seen); Urine Urobilinogen Normal (Normal); Urine pH 6.5 (5.0-7.0)
--- NOTE | 2023-03-26 10:19 | RAD REPORT ---
EXAM DESCRIPTION: CT - Abdomen Pelvis W Contrast - 03/26/2023 9:29 am CLINICAL HISTORY: ABD PAIN COMPARISON: CT ABD PELVIS W CONTRAST dated 12/25/2011 TECHNIQUE: Thin cut axial CT imaging of the abdomen and pelvis was performed following intravenous a dministration of 95 mL Isovue 300. Multiplanar reformats were generated and reviewed. All CT scans are performed using dose optimization technique as appropriate and may include automated exposure control or mA/KV adjustment according to patient size. FINDINGS: No suspicious findings in the lung bases. Status post cholecystectomy. Scarring and calcifications along the posterior aspect of the right live r lobe, new since the prior exam, in their region of segmental intrahepatic biliary ductal dilation. This could relate to longstanding segmental biliary obstruction. The common bile duct is stable in ca liber. Limited central pneumobilia again seen. No other focal suspicious lesion of the liver. The adrenal glands, spleen, and pancreas show no suspicious findings. Symmetric renal function is seen with no hydronephrosis or suspicious renal mass. No dilated bowel loops or bowel wall thickening. No free air, free fluid or inflammatory stranding. N o hernia, mass or bulky lymphadenopathy. The urinary bladder is without significant finding. No suspicious bony findings. IMPRESSION: Likely postoperative sequelae and region of calcifications suggestive of longstanding se gmental biliary obstruction along the posterior aspect of the right liver lobe. No other acute findings in the abdomen and pelvis.
--- NOTE | 2023-03-26 11:04 | ER ---
Nurse's Notes [facility] Name: Yoly Howard Age: 83 yrs Sex: Female : 1940 Arrival Date: 03/26/2023 Time: 08:14 Bed DIS2 Private MD: Alyssa Merritt C Diagnosis: UTI/ Urinary tract infection, site not specified Presentation: 03/26 08:26 Chief complaint: Urinary frequency, burning with urination, nausea, and abdominal pain hb x 3 days. Coronavirus screen: At this time, the client does not indicate any symptoms associated with coronavirus-19. Ebola Screen: No symptoms or risks identified at this time. Initial Sepsis Screen: Does the patient meet any 2 criteria? No. Patient's initial sepsis screen is negative. Does the patient have a suspected source of infection? No. Patient's initial sepsis screen is negative. Risk Assessment: Do you want to hurt yourself or someone else? Patient reports no desire to harm self or others. Onset of symptoms was March 24, 2023. 08:26 Method Of Arrival: Ambulatory hb 08:26 Acuity: JACLYN 3 hb Triage Assessment: 11:38 General: Appears in no apparent distress. Behavior is calm, cooperative. iw Historical: - Allergies: 08:27 Flagyl; hb 08:27 Codeine; hb 08:27 Levaquin; hb - PMHx: 08:27 High Cholesterol; Hypertension; hb - Immunization history:: Adult Immunizations up to date. - Social history:: Smoking status: Patient denies any tobacco usage or history of. Screenin:38 [facility] ED Fall Risk Assessment (Adult) History of falling in the last 3 months, iw including since admission. Abuse screen: Denies threats or abuse. Denies injuries from another. Nutritional screening: No deficits noted. Tuberculosis screening: No symptoms or risk factors identified. Assessment: 11:37 Reassessment: Patient appears in no apparent distress at this time. Patient and/or iw family updated on plan of care and expected duration. Pain level reassessed. Patient is alert, oriented x 3, equal unlabored respirations, skin warm/dry/pink. Patient states feeling better. Patient states symptoms have improved. Vital Signs: 08:31 BP 131 / 67; Pulse 72; Resp 16; Temp 99; Pulse Ox 96% ; Weight 54.43 kg; Height 5 ft. 2 hb in. ; Pain 8/10; 08:31 Body Mass Index 21.95 (54.43 kg, 157.48 cm) hb 08:31 Pain Scale: Adult hb ED Course: 08:18 Patient arrived in ED. mr 08:18 Alyssa Merritt MD is Private Physician. mr 08:19 Rere Florian FNP-C is [facility]. kb 08:19 Eder Rainey MD is Attending Physician. kb 08:27 Triage completed. hb 08:31 Arm band placed on. hb 09:30 CT Abd/Pelvis - IV Contrast Only In Process Unspecified. EDMS 11:03 Alyssa Merritt MD is Referral Physician. kb 11:16 Sarai Souza, RN is Primary Nurse. iw 11:37 No provider procedures requiring assistance completed. IV discontinued, intact, iw bleeding controlled, No redness/swelling at site. Pressure dressing applied. Administered Medications: 11:37 Not Given (Patient Refused): Ondansetron IVP 4 mg IVP once; over 2 minutes iw Medication: 11:37 VIS not applicable for this client. iw Outcome: 11:04 Discharge ordered by MD. kb 11:38 Discharged to home ambulatory, with family. iw 11:38 Condition: good 11:38 Discharge instructions given to patient, family, Instructed on discharge instructions, follow up and referral plans. medication usage, Demonstrated understanding of instructions, follow-up care, medications, Prescriptions given X 1. 11:38 Patient left the ED. iw Signatures: Dispatcher [employer] EDUT Rere Florian FNP-C FNP-Ckb Rivera Maddie mr Sarai Souza, RN RN iw Sridevi Batista RN RN hb
--- NOTE | 2023-03-26 11:04 | EDPHYS ---
Physician Documentation [facility] Name: Yoly Howard Age: 83 yrs Sex: Female : 1940 Arrival Date: 03/26/2023 Time: 08:14 Bed DIS2 Private MD: Alyssa Merritt C ED Physician Eder Rainey HPI: 03/26 13:19 This 83 yrs old Female presents to ER via Ambulatory with complaints of Urinary Problem.kb 13:20 The patient presents with abdominal pain in the right upper quadrant, right lower kb quadrant. Onset: The symptoms/episode began/occurred 3 day(s) ago. The symptoms do not radiate. Associated signs and symptoms: Pertinent positives: dysuria. The symptoms are described as constant. Modifying factors: The symptoms are alleviated by nothing, the symptoms are aggravated by nothing. Severity of pain: At its worst the pain was moderate in the emergency department the pain is unchanged. The patient has experienced similar episodes in the past. The patient has not recently seen a physician. Pt reports dysuria, urinary frequency, right abd pain and right flank pain for 3 days. States she believes she has a bladder infection. Historical: - Allergies: 08:27 Flagyl; hb 08:27 Codeine; hb 08:27 Levaquin; hb - PMHx: 08:27 High Cholesterol; Hypertension; hb - Immunization history:: Adult Immunizations up to date. - Social history:: Smoking status: Patient denies any tobacco usage or history of. ROS: 13:17 Constitutional: Negative for fever, chills, and weight loss. kb 13:17 Abdomen/GI: Positive for abdominal pain, Negative for nausea, vomiting, and diarrhea. 13:17 Back: Positive for flank pain. 13:17 : Positive for urinary symptoms, flank pain, urinary frequency, burning with urination. 13:17 All other systems are negative. Exam: 13:18 Constitutional: This is a well developed, well nourished patient who is awake, alert, kb and in no acute distress. Head/Face: Normocephalic, atraumatic. ENT: Moist Mucous membranes Cardiovascular: Regular rate and rhythm with a normal S1 and S2. No gallops, murmurs, or rubs. No pulse deficits. Respiratory: Respirations even and unlabored. No increased work of breathing. Talking in full sentences Skin: Warm, dry with normal turgor. Normal color. MS/ Extremity: Pulses equal, no cyanosis. Neurovascular intact. Full, normal range of motion. Neuro: Awake and alert, GCS 15, oriented to person, place, time, and situation. Moves all extremities. Normal gait. 13:18 Abdomen/GI: Inspection: abdomen appears normal, Bowel sounds: normal, Palpation: soft, in all quadrants, mild abdominal tenderness, in the right upper quadrant and right lower quadrant. 13:18 Back: CVA tenderness, that is mild, is noted on the right. Vital Signs: 08:31 BP 131 / 67; Pulse 72; Resp 16; Temp 99; Pulse Ox 96% ; Weight 54.43 kg; Height 5 ft. 2 hb in. ; Pain 8/10; 08:31 Body Mass Index 21.95 (54.43 kg, 157.48 cm) hb 08:31 Pain Scale: Adult hb MDM: 08:20 Patient medically screened. kb 13:18 Differential diagnosis: UTI, pyelonephritis, appendicitis. Data reviewed: vital signs, kb nurses notes. Counseling: I had a detailed discussion with the patient and/or guardian regarding: the historical points, exam findings, and any diagnostic results supporting the discharge/admit diagnosis, lab results, radiology results, the need for outpatient follow up, a family practitioner, to return to the emergency department if symptoms worsen or persist or if there are any questions or concerns that arise at home. 03/26 08:20 Order name: Urinalysis w/ reflexes; Complete Time: 09:21 kb 03/26 08:28 Order name: CBC with Diff; Complete Time: 09:10 kb 03/26 08:28 Order name: CMP; Complete Time: 09:21 kb 03/26 08:28 Order name: Lipase; Complete Time: 09:21 kb 03/26 08:28 Order name: CT Abd/Pelvis - IV Contrast Only; Complete Time: 10:21 kb 03/26 08:28 Order name: IV Saline Lock; Complete Time: 09:23 kb 03/26 08:28 Order name: Labs collected and sent; Complete Time: 09:23 kb Administered Medications: 11:37 Not Given (Patient Refused): Ondansetron IVP 4 mg IVP once; over 2 minutes iw Disposition: 17:06 Co-signature as Attending Physician, Eder Rainey MD I reviewed the patient's care rn provided by the Advanced Practice Provider and agree with the diagnosis and treatment plan. Disposition Summary: 03/26/23 11:04 Discharge Ordered Location: Home kb Condition: Stable kb Diagnosis - UTI/ Urinary tract infection, site not specified kb Followup: kb - With: Emergency Department - When: As needed - Reason: Worsening of condition Followup: kb - With: Alyssa Merritt MD - When: 2 - 3 days - Reason: Recheck today's complaints, Continuance of care, Re-evaluation by your physician Discharge Instructions: - Discharge Summary Sheet kb - Urinary Tract Infection, Adult, [id number] kb Forms: - Medication Reconciliation Form kb - Thank You Letter kb - Antibiotic Education kb - Prescription Opioid Use kb Prescriptions: - Macrobid 100 mg Oral Capsule - take 1 capsule by ORAL route every 12 hours for 10 days; 20 capsule; Refills: kb 0, Product Selection Permitted Signatures: Dispatcher [employer] EDRere Landaverde, SYSTEMS PROGRAM MANAGER-C SYSTEMS PROGRAM MANAGER-Eder Almazan MD MD rn Baxter, Heather, RN RN hb Williams, Irene RN iw
[2023-03-26 12:14] VITALS: BP 131/67; TEMP 99; O2SAT 96
== END 2023-03-26 11:38 | disposition home or self-care (01) ==
LOC: ER 08:14
DX: N39.0 Urinary tract infection, site not specified (principal); R10.31 Right lower quadrant pain; I10 Essential (primary) hypertension; Z88.1 Allergy status to other antibiotic agents; Z88.5 Allergy status to narcotic agent; Z88.8 Allergy status to other drugs, medicaments and biological substances
CPT/HCPCS: 85025; 81001; 36415; 83690; 80053; 74177; 99283; Q9967

== ENCOUNTER → 2023-11-26 | Emergency (ER) | payer OTHER ==
[2023-11-26 18:00] LABS: SARS-COV-2 RT PCR NEGATIVE (NEGATIVE)
--- NOTE | 2023-11-26 18:38 | EDPHYS ---
Physician Documentation [facility] Name: Yoly Howard Age: 83 yrs Sex: Female : 1940 Arrival Date: 11/26/2023 Time: 16:23 Bed 6 Private MD: Alyssa Merritt C ED Physician Alexandro Rock HPI: 11/26 17:01 This 83 yrs old Female presents to ER via Ambulatory with complaints of Flu Symptoms. kb 17:01 Patient is a 83-year-old female who presents for body aches, chills, cough, congestion, kb decreased appetite and diarrhea that started today.. Historical: - Allergies: 16:34 Codeine; tl4 16:34 Flagyl; tl4 16:34 Levaquin; tl4 - PMHx: 16:34 High Cholesterol; Hypertension; tl4 - PSHx: 16:34 Cholecystectomy; Ligation of fallopian tube; tl4 - Immunization history:: Adult Immunizations unknown. - Social history:: Smoking status: Patient/guardian denies using tobacco, the patient reports quitting approximately 50 years ago. ROS: 17:02 Cardiovascular: Negative for chest pain, palpitations, and edema, kb 17:02 Constitutional: Positive for body aches, chills, fever, 17:02 ENT: Positive for rhinorrhea, sinus congestion, 17:02 Respiratory: Positive for cough, 17:02 Abdomen/GI: Positive for diarrhea, 17:02 All other systems are negative, Exam: 17:02 Constitutional: This is a well developed, well nourished patient who is awake, alert, kb and in no acute distress. Head/Face: Normocephalic, atraumatic. ENT: Moist Mucous membranes Cardiovascular: Regular rate Respiratory: Respirations even and unlabored. No increased work of breathing. Talking in full sentences Abdomen/GI: Soft, non-tender. No distention Skin: Warm, dry with normal turgor. Normal color. MS/ Extremity: Pulses equal, no cyanosis. Neurovascular intact. Full, normal range of motion. Neuro: Awake and alert, GCS 15, oriented to person, place, time, and situation. Moves all extremities. Normal gait. Vital Signs: 16:32 BP 114 / 52; Pulse 79; Resp 18; Temp 98(O); Pulse Ox 97% on R/A; Weight 52.16 kg; tl4 Height 5 ft. 3 in. ; Pain 5/10; 18:47 BP 112 / 60; Pulse 74; Resp 16; Pulse Ox 99% ; ko1 16:32 Body Mass Index 20.37 (52.16 kg, 160.02 cm) tl4 16:32 Pain Scale: Adult tl4 MDM: 16:28 Patient medically screened. 17:02 Differential Diagnosis: Other Flu, COVID, RSV, URI, pneumonia. Data reviewed: vital kb signs, nurses notes. 17:02 Test considered but Not performed: X-ray: Chest x-ray considered but lungs clear kb bilaterally, respirations even and unlabored, oxygen saturation 97% on room air.. 18:37 I considered the following discharge prescriptions or medication management in the emergency department I discussed and recommended Over The Counter medications, Antibiotics: At this time antibiotics are not recommended, Antivirals: At this time, antivirals are not recommended. Counseling: I had a detailed discussion with the patient and/or guardian regarding the historical points, exam findings, and any diagnostic results supporting the discharge/admit diagnosis, lab results, the need for outpatient follow up, a family practitioner, to return to the emergency department if symptoms worsen or persist or if there are any questions or concerns that arise at home. 11/26 16:31 Order name: COVID-19/FLU A+B/RSV; Complete Time: 18:04 kb Administered Medications: No medications were administered Disposition Summary: 11/26/23 18:37 Discharge Ordered Notes: Location: Home Condition: Stable Diagnosis - Acute upper respiratory infection, unspecified kb Followup: kb - With: Emergency Department - When: As needed - Reason: Worsening of condition Followup: kb - With: Private Physician - When: 2 - 3 days - Reason: Recheck today's complaints, Continuance of care, Re-evaluation by your physician Discharge Instructions: - Discharge Summary Sheet kb - Upper Respiratory Infection, Adult, [id number] kb - Viral Respiratory Infection, [id number] kb Forms: - Medication Reconciliation Form kb - Thank You Letter kb - Antibiotic Education kb - Prescription Opioid Use kb - Patient Portal Instructions kb - Leadership Thank You Letter kb Signatures: Dispatcher [employer] Rere Montoya, ISRA[place] KHANNA-Edilia Logdahl, Juan Carlos tl4
--- NOTE | 2023-11-26 18:38 | ER ---
Nurse's Notes [facility] Name: Yoly Howard Age: 83 yrs Sex: Female : 1940 Arrival Date: 11/26/2023 Time: 16:23 Bed 6 Private MD: Alyssa Merritt C Diagnosis: Acute upper respiratory infection, unspecified Presentation: 11/26 16:32 Chief complaint: Patient states: Pt c/o body aches, chills, cough, congestion, loss of tl4 appetite, abdominal cramping and diarrhea today. Coronavirus screen: Vaccine status: Patient reports receiving the 2nd dose of the covid vaccine. Ebola Screen: No symptoms or risks identified at this time. Initial Sepsis Screen: Does the patient meet any 2 criteria? No. Patient's initial sepsis screen is negative. Does the patient have a suspected source of infection? No. Patient's initial sepsis screen is negative. Risk Assessment: Do you want to hurt yourself or someone else? Patient reports no desire to harm self or others. Onset of symptoms was November 26, 2023. 16:32 Method Of Arrival: Ambulatory tl4 16:32 Acuity: JACLYN 3 tl4 Triage Assessment: 16:35 General: Appears uncomfortable, ill, Behavior is calm, cooperative. Pain: Complains of tl4 pain in generalized body aches. EENT: Reports nasal congestion nasal discharge. Neuro: No deficits noted. Cardiovascular: No deficits noted. Denies chest pain, diaphoresis, fatigue, lightheadedness, nausea, palpitations. Respiratory: Reports shortness of breath cough that is. GI: Reports diarrhea, nausea. : No deficits noted. No signs and/or symptoms were reported regarding the genitourinary system. Derm: No deficits noted. No signs and/or symptoms reported regarding the dermatologic system. Historical: - Allergies: 16:34 Codeine; tl4 16:34 Flagyl; tl4 16:34 Levaquin; tl4 - PMHx: 16:34 High Cholesterol; Hypertension; tl4 - PSHx: 16:34 Cholecystectomy; Ligation of fallopian tube; tl4 - Immunization history:: Adult Immunizations unknown. - Social history:: Smoking status: Patient/guardian denies using tobacco, the patient reports quitting approximately 50 years ago. Screenin:39 [facility] ED Fall Risk Assessment (Adult) History of falling in the last 3 months, ko1 including since admission No falls in past 3 months (0 pts) Confusion or Disorientation No (0 pts) Intoxicated or Sedated No (0 pts) Impaired Gait No (0 pts) Mobility Assist Device Used No (0 pt) Altered Elimination No (0 pt) Score/Fall Risk Level 0 - 2 = Low Risk Oriented to surroundings, Maintained a safe environment, Educated pt \T\ family on fall prevention, incl call for assistance when getting out of bed, Assessed \T\ reinforced patient's understanding of fall precautions, Provided non-skid footwear, Hourly rounding (assess needs \T\ fall precautionary measures) done, Used ambulatory aids as needed (educated on \T\ assisted with), Used gait belt as appropriate. Abuse screen: Denies threats or abuse. Denies injuries from another. Nutritional screening: No deficits noted. Tuberculosis screening: No symptoms or risk factors identified. Assessment: 17:39 Reassessment: agree with triage assessment. ko1 Vital Signs: 16:32 BP 114 / 52; Pulse 79; Resp 18; Temp 98(O); Pulse Ox 97% on R/A; Weight 52.16 kg; tl4 Height 5 ft. 3 in. ; Pain 5/10; 18:47 BP 112 / 60; Pulse 74; Resp 16; Pulse Ox 99% ; ko1 16:32 Body Mass Index 20.37 (52.16 kg, 160.02 cm) tl4 16:32 Pain Scale: Adult tl4 ED Course: 16:25 Patient arrived in ED. rg4 16:25 Alyssa Merritt MD is Private Physician. rg4 16:28 Rere Florian FNP-C [facility]. kb 16:28 Alexandro Rock MD is Attending Physician. kb 16:34 Triage completed. tl4 16:34 Arm band placed on right wrist. tl4 16:39 COVID-19/FLU A+B/RSV Sent. tl4 17:35 Rut Munoz, PONCHO is Primary Nurse. ko1 17:39 Patient has correct armband on for positive identification. Bed in low position. Call ko1 light in reach. Side rails up X 1. Provided Education on: na. Pulse ox on. NIBP on. Door closed. Noise minimized. Lights dimmed. Warm blanket given. 17:39 No provider procedures requiring assistance completed. ko1 18:47 Patient did not have IV access during this emergency room visit. ko1 Administered Medications: No medications were administered Medication: 17:39 VIS not applicable for this client. ko1 Outcome: 18:37 Discharge ordered by . kb 18:49 Discharged to home ambulatory, ld1 18:49 Condition: stable 18:49 Discharge instructions given to patient, Instructed on discharge instructions, follow up and referral plans. Demonstrated understanding of instructions, follow-up care, 18:52 Patient left the ED. ld1 Signatures: Rere Florian, MACHINIST 2ND SHIFT-C MACHINIST 2ND SHIFT-Joana Vazquez rg4 Gertrudis Wu RN RN ld1 Rut Munoz, RN RN ko1 Juan Carlos Moffett tl4
[2023-11-27 05:08] VITALS: BP 112/60; TEMP 98; O2SAT 99
== END ==
LOC: ER 16:23
DX: J06.9 Acute upper respiratory infection, unspecified (principal); Z11.52 Encounter for screening for COVID-19; Z88.1 Allergy status to other antibiotic agents; Z88.5 Allergy status to narcotic agent
CPT/HCPCS: 0241U

== ENCOUNTER 2024-01-05 03:07 | Inpatient (IN) | payer OTHER ==
[2024-01-05 03:35] LABS: Absolute Lymphocytes (CBC) 0.7 K/uL (0.7-4.9); Absolute Monocytes 0.9 K/uL (0.1-1.3); Absolute Neutrophil 17.5 K/uL (1.8-8.0); Basophils % 0.1 % (0-1.3); Eosinophils % 0.1 % (0-4.4); Hematocrit 28.8 % (36.0-45.0); Hemoglobin 9.7 g/dL (12.0-15.0); Lymphocytes % 3.7 % (15.3-44.8); MCH 29.7 pg (27.0-35.0); MCHC 33.8 g/dL (32.0-36.0); MCV 87.9 fL (80-100); MPV 7.8 fL (7.6-11.3); Monocytes % 4.6 % (3.3-12.3); Neutrophils % 91.5 % (41.7-73.7); Platelets 259 thou/uL (152-406); RBC Red Blood Cell Count 3.28 M/uL (3.86-4.86); Red Cell Distribution Width 14.9 % (12.1-15.2)
[2024-01-05 03:53] LABS: PTT, Activated Partial Thromb 36.2 SECONDS (24.3-36.9)
[2024-01-05 03:54] LABS: Protime INR 1.85
[2024-01-05 04:10] LABS: Albumin 2.8 g/dL (3.4-5.0); Anion Gap 12.2 mEq/L (5.0-15.0); Bilirubin Total 0.6 mg/dL (0.2-1.0); Potassium 4.2 mEq/L (3.5-5.1); Protein, Total 6.8 g/dL (6.4-8.2)
[2024-01-05 04:11] LABS: Albumin/Globulin Ratio 0.7 (1.1-1.8); Troponin High Sensitivity 14.6 pg/mL (<58.9)
[2024-01-05 04:15] LABS: SARS-CoV-2 Antigen CONTROL BLUE LINE VIS/BG OK; SARS-CoV-2 Antigen Rapid Res Negative (Negative)
[2024-01-05] MEDS ORDERED: NA CHLORIDE 0.9% 250 ML ONE ×3 (04:53→09:01)
[2024-01-05] MEDS ORDERED: AZITHROMYCIN 500 MG INJ IVPB ONE (04:53)
[2024-01-05] MEDS ORDERED: CEFTRIAXONE 1000 MG/VIAL ONE (04:53)
--- NOTE | 2024-01-05 05:01 | ER ---
Nurse's Notes [facility] Name: Yoly Howard Age: 83 yrs Sex: Female : 1940 Arrival Date: 01/05/2024 Time: 03:07 Bed 3 Private MD: Diagnosis: Other pneumonia, unspecified organism;Severe sepsis without septic shock;Heart failure, unspecified Presentation: 01/04 03:18 Chief complaint: EMS states: toned out for severe cough, coughing up pink blood x 2 tm6 days, and shortness of breath. Upon arrival, patient on 77% RA. Placed on nonrebreather, reached 94% SpO2. 20g LAC placed. 03:33 Coronavirus screen: Vaccine status: Patient reports receiving the 2nd dose of the covid tm6 vaccine. At this time, unable to obtain information related to travel outside the [place] Ebola Screen: Patient negative for fever greater than or equal to 101.5 degrees Fahrenheit, and additional compatible Ebola Virus Disease symptoms Patient denies exposure to infectious person. Patient denies travel to an Ebola-affected area in the 21 days before illness onset. No symptoms or risks identified at this time. Initial Sepsis Screen: Does the patient meet any 2 criteria? RR > 20 per min. Temp <36.0*C (96.8*F)) or > 38.3*C (100.9*F). Yes Does the patient have a suspected source of infection? No. Patient's initial sepsis screen is negative. Risk Assessment: Do you want to hurt yourself or someone else? Patient reports no desire to harm self or others. Onset of symptoms was January 05, 2024. 03:33 Method Of Arrival: EMS: [facility] tm6 03:33 Acuity: JACLYN 2 tm6 03:33 Care prior to arrival: nonrebreather. tm6 Triage Assessment: 03:40 General: Appears distressed, Behavior is cooperative. Pain: Denies pain. EENT: Reports tm6 severe cough, coughing up blood. Neuro: Level of Consciousness is awake, alert, obeys commands, Oriented to person, place, time, situation. Cardiovascular: Capillary refill < 3 seconds Patient's skin is warm and dry. Rhythm is sinus rhythm with 1st degree heart block. Respiratory: Reports shortness of breath at rest cough that is productive, air hunger labored breathing pain with cough Airway is patent Respiratory effort is labored, Respiratory pattern is tachypnea Onset: The symptoms/episode began/occurred this morning, the patient has severe shortness of breath Parent/caregiver reports the patient having coughing up blood. GI: Abdomen is flat, non-distended. : No signs and/or symptoms were reported regarding the genitourinary system. Derm: No signs and/or symptoms reported regarding the dermatologic system. Musculoskeletal: No signs and/or symptoms reported regarding the musculoskeletal system. Historical: - Allergies: 03:37 Codeine; tm6 03:37 Flagyl; tm6 03:37 Levaquin; tm6 - PMHx: 03:37 High Cholesterol; Hypertension; Hypothyroidism; tm6 - PSHx: 03:37 Cholecystectomy; Ligation of fallopian tube; tm6 - Immunization history:: Adult Immunizations up to date, Client reports receiving the 2nd dose of the Covid vaccine, Flu vaccine is up to date. - Social history:: Smoking status: Patient/guardian denies using tobacco, the patient reports quitting approximately 50 years ago, Patient/guardian denies using alcohol. Screenin:42 [facility] ED Fall Risk Assessment (Adult) History of falling in the last 3 months, tm6 including since admission No falls in past 3 months (0 pts) Confusion or Disorientation No (0 pts) Intoxicated or Sedated No (0 pts) Impaired Gait No (0 pts) Mobility Assist Device Used No (0 pt) Altered Elimination No (0 pt) Score/Fall Risk Level 0 - 2 = Low Risk Oriented to surroundings, Maintained a safe environment. Abuse screen: Denies threats or abuse. Denies injuries from another. Nutritional screening: No deficits noted. Tuberculosis screening: No symptoms or risk factors identified. Assessment: 03:39 Reassessment: patient states she does not want to be intubated or receive CPR. Daughter tm6 confirmed that patient is DNAR. 03:42 Reassessment: see triage assessment. Pain: Denies pain. Cardiovascular: Rhythm is sinus tm6 rhythm with 1st degree heart block. Respiratory: Airway is patent Respiratory effort is labored, Breath sounds are diminished. 04:45 Reassessment: Patient appears in no apparent distress at this time. Patient and/or km8 family updated on plan of care and expected duration. Pain level reassessed. Patient is alert, oriented x 3, equal unlabored respirations, skin warm/dry/pink. Patient states symptoms have improved. Vital Signs: 03:30 BP 118 / 50; Pulse 59; Resp 28; Pulse Ox 100% on BiPAP; km8 03:33 BP 134 / 48; Pulse 66; Resp 26; Temp 96.4(TE); Pulse Ox 100% on bipap; Weight 53.52 kg; tm6 Height 5 ft. 2 in. ; Pain 0/10; 04:00 BP 180 / 87; Pulse 59; Resp 25; Pulse Ox 100% on BiPAP; km8 04:30 BP 120 / 49; Pulse 57; Resp 26; Pulse Ox 100% on BiPAP; km8 05:30 BP 105 / 50; Pulse 55; Resp 23; Pulse Ox 98% on BiPAP; km8 06:00 BP 95 / 53; Pulse 54; Resp 18; Pulse Ox 96% on BiPAP; km8 03:33 Body Mass Index 21.58 (53.52 kg, 157.48 cm) tm6 03:33 Pain Scale: Adult tm6 ED Course: 03:09 Patient arrived in ED. rv1 03:10 Dima Wu DO is Attending Physician. ms3 03:23 Initial lab(s) drawn, by ED staff, sent to lab. First set of blood cultures drawn by ED km8 staff. 03:23 Inserted saline lock: 22 gauge in right forearm, using aseptic technique. Blood km8 collected. 03:31 Maintain EMS IV. Dressing intact. Site clean \T\ dry. Gauge \T\ site: 20 gauge left AC. km 8 03:32 EKG done, by ED staff, reviewed by Dima Wu DO. km8 03:33 Kayode Murguia, RN is Primary Nurse. tm6 03:35 Chest Single View XRAY In Process Unspecified. EDMS 03:36 Triage completed. tm6 03:40 Arm band placed on right wrist. tm6 03:42 O2 via bipap Response to oxygen therapy: symptoms improved. tm6 03:42 Patient has correct armband on for positive identification. Placed in gown. Bed in low tm6 position. Call light in reach. Side rails up X2. Provided Education on: plan of care. Client placed on continuous cardiac and pulse oximetry monitoring. NIBP monitoring applied. monitoring manager on. Pulse ox on. NIBP on. Noise minimized. Warm blanket given. bear hugger placed. 05:00 Alyssa Merritt MD is Hospitalizing Provider. ms3 05:11 Repositioned patient. purewick placed. km8 05:52 Patient admitted, IV remains in place. km8 05:52 No provider procedures requiring assistance completed. km8 Administered Medications: 05:00 Drug: Rocephin IV 1 grams IV at calculated rate once; Given slow IV push per pharmacy km8 instructions Route: IV; Rate: calculated rate; Site: right forearm; 05:44 Follow up: Response: No adverse reaction; IV Status: Completed infusion km8 05:01 Drug: AZITHromycin IVPB 500 mg IVPB once over 1 hrs; (mix in 250 mL NS) Route: IVPB; km8 Infused Over: 1 hrs; Site: right forearm; 06:07 Follow up: Response: No adverse reaction; IV Status: Completed infusion; IV Intake: km8 250ml 06:07 Drug: vancoMYCIN IVPB 20 mg/kg IVPB once; once over 2 hours; not to exceed 2 grams; km8 (mix in 250 to 500mL NS) Route: IVPB; Site: right forearm; 06:29 Follow up: IV Status: Infusion continued upon transfer km8 Medication: 03:42 VIS not applicable for this client. tm6 Point of Care Testing: Blood Glucose: 03:30 Blood Glucose: 187 mg/dL; km8 Ranges: Intake: 06:07 IV: 250ml; Total: 250ml. km8 Outcome: 05:01 Decision to Hospitalize by Provider. ms3 06:29 Admitted to ICU accompanied by nurse, accompanied by tech, via wheelchair, room 5, with km8 oxygen, with chart, Report called to PONCHO Choudhary 06:29 Condition: stable 06:29 Instructed on the need for admit, Demonstrated understanding of instructions, 06:30 Patient left the ED. km8 Signatures: Dispatcher [employer] EDMS Dima Wu DO DO ms3 Tricia Alamo rv1 Monica Welsh, PONCHO RN km8 Kayode Murguia RN RN tm6 Corrections: (The following items were deleted from the chart) 03:36 03:18 Chief complaint: EMS states: toned out for severe cough, coughing up pink blood x tm6 2 days, and shortness of breath. Upon arrival, patient on 77% RA tm6
--- NOTE | 2024-01-05 05:01 | EDPHYS ---
Physician Documentation [facility] Name: Yoly Howard Age: 83 yrs Sex: Female : 1940 Arrival Date: 01/05/2024 Time: 03:07 Bed 3 Private MD: ED Physician Dima Wu HPI: 01/04 05:40 This 83 yrs old Female presents to ER via EMS with complaints of Shortness Of Breath. ms3 05:40 83-year-old female with past medical history of hyperlipidemia, hypertension, ms3 thyroidism presents to the emergency department via [facility] for shortness of breath, hemoptysis, cough that has been ongoing for 2 days. On EMS arrival patient is on room air oxygen saturations were 77%. Patient was placed on a nonrebreather with improvement of her oxygen saturation to 94%. EMS notes patient's lungs are clear to auscultation bilaterally. Patient states she has had cough and hemoptysis for 2 days. Patient states her symptoms become worse when laying flat or with exertion. Patient denies any alleviating factors. Historical: - Allergies: 03:37 Codeine; tm6 03:37 Flagyl; tm6 03:37 Levaquin; tm6 - PMHx: 03:37 High Cholesterol; Hypertension; Hypothyroidism; tm6 - PSHx: 03:37 Cholecystectomy; Ligation of fallopian tube; tm6 - Immunization history:: Adult Immunizations up to date, Client reports receiving the 2nd dose of the Covid vaccine, Flu vaccine is up to date. - Social history:: Smoking status: Patient/guardian denies using tobacco, the patient reports quitting approximately 50 years ago, Patient/guardian denies using alcohol. ROS: 05:40 Constitutional: Negative for fever, and chills. Neck: Negative for injury, pain, and ms3 swelling, Cardiovascular: Negative for chest pain, and palpitations. 05:40 Abdomen/GI: Negative for abdominal pain, nausea, vomiting, diarrhea, and constipation, MS/Extremity: Negative for injury and deformity, Skin: Negative for injury, rash, and discoloration, 05:40 Respiratory: Positive for cough, dyspnea on exertion, shortness of breath, Exam: 05:40 Constitutional: This is a well developed, well nourished patient who is awake, alert, ms3 and in no acute distress. Head/Face: Normocephalic, atraumatic. Neck: Trachea midline, no cervical lymphadenopathy. Supple, full range of motion without nuchal rigidity, or vertebral point tenderness. No Meningismus. Chest/axilla: Normal chest wall appearance and motion. Nontender with no deformity. Cardiovascular: Regular rate and rhythm with a normal S1 and S2. No gallops, murmurs, or rubs. Normal PMI, no JVD. No pulse deficits. Abdomen/GI: Soft, non-tender, with normal bowel sounds. No distension or tympany. No guarding or rebound. No evidence of tenderness throughout. Skin: Warm, dry with normal turgor. Normal color with no rashes, no lesions, and no evidence of cellulitis. MS/ Extremity: Pulses equal, no cyanosis. Neurovascular intact. Full, normal range of motion. 05:40 Respiratory: moderate respiratory distress is noted, Respirations: labored breathing, that is moderate, Breath sounds: rales, that are moderate, are heard in the right posterior middle lobe, 05:52 ECG was reviewed by the Attending Physician. ms3 Vital Signs: 03:30 BP 118 / 50; Pulse 59; Resp 28; Pulse Ox 100% on BiPAP; km8 03:33 BP 134 / 48; Pulse 66; Resp 26; Temp 96.4(TE); Pulse Ox 100% on bipap; Weight 53.52 kg; tm6 Height 5 ft. 2 in. ; Pain 0/10; 04:00 BP 180 / 87; Pulse 59; Resp 25; Pulse Ox 100% on BiPAP; km8 04:30 BP 120 / 49; Pulse 57; Resp 26; Pulse Ox 100% on BiPAP; km8 05:30 BP 105 / 50; Pulse 55; Resp 23; Pulse Ox 98% on BiPAP; km8 06:00 BP 95 / 53; Pulse 54; Resp 18; Pulse Ox 96% on BiPAP; km8 03:33 Body Mass Index 21.58 (53.52 kg, 157.48 cm) tm6 03:33 Pain Scale: Adult tm6 MDM: 03:11 Patient medically screened. ms3 05:11 Antibiotic administration:. Data reviewed: vital signs, nurses notes, lab test ms3 result(s), EKG, radiologic studies, and as a result, I will admit patient. Consideration of Admission/Observation Patient was admitted/placed on observation. Management of patient was discussed with the following: Hospitalist: Dr Merritt. I considered the following discharge prescriptions or medication management in the emergency department Medications were administered in the Emergency Department. See MAR. Independent interpretation of the following test(s) in the Emergency Department X-Ray: My interpretation is CXR image reviewed by me shows pulmonary edema and pneumonia in R lung. Historians other than the Patient: EMS: [facility]. Care significantly affected by the following chronic conditions: Hypertension. Counseling: I had a detailed discussion with the patient and/or guardian regarding the historical points, exam findings, and any diagnostic results supporting the discharge/admit diagnosis, lab results, radiology results, the need for further work-up and treatment in the hospital. Special discussion: On arrival patient states she does not wish to be intubated. Patient is DNR and patient's daughter confirms patient is DNR.. ED course: Patient meets severe sepsis at this time. A. Source of infection identified on CXR as PNA at 0511. B. RR >20, T <96.5. C. Bipap on arrival. Sepsis order set used on patient arrival. Rocephin, Azithromycin abx ordered. Blood cx obtained prior. Will draw 2nd LA per sepsis orders set.. 05:40 Differential diagnosis: Anemia CHF exacerbation, Chronic Obstructive Pulmonary Disease ms3 pneumonia, pulmonary edema. 01/04 03:11 Order name: Blood Culture Adult (2) ms3 01/04 03:11 Order name: CBC with Diff; Complete Time: 04:19 ms3 01/04 03:11 Order name: CMP; Complete Time: 04:19 ms3 01/04 03:11 Order name: Lactate w/ 2H reflex if indic.; Complete Time: 04:19 ms3 01/04 03:11 Order name: Protime (+inr); Complete Time: 04:19 ms3 01/04 03:11 Order name: Ptt, Activated; Complete Time: 04:19 ms3 01/04 03:12 Order name: Troponin HS; Complete Time: 04:19 ms3 01/04 03:32 Order name: NT PRO-BNP; Complete Time: 04:19 EDMS 01/04 03:33 Order name: Flu; Complete Time: 04:19 km8 01/04 03:33 Order name: SARS RAPID; Complete Time: 04:19 km8 01/04 03:39 Order name: Glucose, Ancillary Testing; Complete Time: 04:19 EDMS 01/04 05:36 Order name: CBC with Automated Diff EDMS 01/04 05:36 Order name: CBC with Automated Diff EDMS 01/04 05:36 Order name: Comprehensive Metabolic Panel EDMS 01/04 05:36 Order name: Comprehensive Metabolic Panel EDMS 01/04 05:36 Order name: Troponin High Sensitivity EDMS 01/04 05:36 Order name: Troponin High Sensitivity EDMS 01/04 05:36 Order name: Troponin High Sensitivity EDMS 01/04 05:36 Order name: Troponin High Sensitivity EDMS 01/04 03:11 Order name: Chest Single View XRAY ms3 01/04 03:33 Order name: BIPAP rv1 01/04 03:11 Order name: EKG; Complete Time: 03:12 ms3 01/04 03:11 Order name: Accucheck; Complete Time: 03:30 ms3 01/04 03:11 Order name: Cardiac monitoring; Complete Time: 03:19 ms3 01/04 03:11 Order name: EKG - Nurse/Tech; Complete Time: 03:30 ms3 01/04 03:11 Order name: IV Saline Lock - Large Bore; Complete Time: 03:30 ms3 01/04 03:11 Order name: Labs collected and sent; Complete Time: 03:30 ms3 01/04 03:11 Order name: O2 Per Protocol; Complete Time: 03:19 ms3 01/04 03:11 Order name: O2 Sat Monitoring; Complete Time: 03:19 ms3 01/04 03:11 Order name: Vital Signs; Complete Time: 03:19 ms3 EC:52 Rate is 63 beats/min. Rhythm is regular. QRS [place] is Normal. OR interval is normal. QRS ms3 interval is prolonged. Clinical impression: NSR w/ Non-specific ST/T Changes and 1st degree AV Block. Interpreted by me. Reviewed by me. Administered Medications: 05:00 Drug: Rocephin IV 1 grams IV at calculated rate once; Given slow IV push per pharmacy km8 instructions Route: IV; Rate: calculated rate; Site: right forearm; 05:44 Follow up: Response: No adverse reaction; IV Status: Completed infusion km8 05:01 Drug: AZITHromycin IVPB 500 mg IVPB once over 1 hrs; (mix in 250 mL NS) Route: IVPB; km8 Infused Over: 1 hrs; Site: right forearm; 06:07 Follow up: Response: No adverse reaction; IV Status: Completed infusion; IV Intake: km8 250ml 06:07 Drug: vancoMYCIN IVPB 20 mg/kg IVPB once; once over 2 hours; not to exceed 2 grams; km8 (mix in 250 to 500mL NS) Route: IVPB; Site: right forearm; 06:29 Follow up: IV Status: Infusion continued upon transfer km8 Point of Care Testing: Blood Glucose: 03:30 Blood Glucose: 187 mg/dL; km8 Ranges: Critical Glucose Levels:Adult <50 mg/dl or >400 mg/dl <40 mg/dl or >180 mg/dl Disposition: 05:11 Critical Care:. ms3 Disposition Summary: 01/05/24 05:01 Hospitalization Ordered Notes: Hospitalization Status: Inpatient Admission ms3 Provider: Alyssa Merritt ms3 Location: Intensive Care Unit ms3 Condition: Stable ms3 Problem: new ms3 Symptoms: are unchanged ms3 Bed/Room Type: Standard ms3 Room Assignment: 5-(01/05/24 05:42) rv1 Diagnosis - Other pneumonia, unspecified organism ms3 - Severe sepsis without septic shock ms3 - Heart failure, unspecified ms3 Forms: - Medication Reconciliation Form ms3 - SBAR form ms3 - Leadership Thank You Letter ms3 Critical care time excluding procedures: 05:11 Critical care time: Bedside Care: 30 minutes, Consultation: 5 minutes, Family ms3 Intervention: 5 minutes. Total time: 40 minutes Signatures: Dispatcher [employer] EDMS Dima Wu DO DO ms3 Tricia Alamo rv1 Monica Welsh, RN RN km8 Kayode Murguia, RN RN tm6 Corrections: (The following items were deleted from the chart) 03:33 03:16 PROBNP+C.LAB.BRZ ordered. EDMS EDMS 05:42 05:01 ms3 rv1
[2024-01-05] MEDS ORDERED: VANCOMYCIN 1 GM/VIAL ONE (05:47)
[2024-01-05] MEDS ORDERED: IPRATROPIUM BROM 0.5MG/2.5ML ONE ×3 (07:29→19:30)
[2024-01-05] MEDS ORDERED: NA CHLORIDE 0.9% 100 ML ONE ×3 (07:48→19:46)
[2024-01-05] MEDS ORDERED: VANCOMYCIN 500 MG/VIAL ONE (07:48)
[2024-01-05] MEDS: IPRATROPIUM BROM 0.5MG/2.5ML NEB SCH (07:52)
[2024-01-05] MEDS: VANCOMYCIN 500 MG in NA CHLORIDE 0.9% 100 ML IVPB ONE (07:56)
[2024-01-05] MEDS ORDERED: NA CHLORIDE 0.9% 1,000 ML ONE ×2 (08:07→17:08)
[2024-01-05] MEDS: NA CHLORIDE 0.9% 1,000 ML IV SCH ×2 (08:09→17:11)
[2024-01-05] MEDS ORDERED: CEFEPIME 2 GM VIAL ONE ×2 (09:00→19:45)
[2024-01-05] MEDS: CEFEPIME 2 GM in NA CHLORIDE 0.9% 100 ML IV SCH (09:12)
[2024-01-05] MEDS ORDERED: ENOXAPARIN 30 MG/0.3 ML SQ ONE (09:16)
[2024-01-05] MEDS: ENOXAPARIN 30 MG/0.3 ML SQ SCH (09:17)
--- NOTE | 2024-01-05 09:40 | HP ---
Date of Admission: 01/05/2024 Chief Complaint: Cough, shortness of breath, and fever. History Of Present Illness: This is an 83-year-old female patient who came into emergency room during nighttime with above-mentioned complaints. Patient reported that as of of this week, she started to have some cough, chest congestion, coughing up mucus with blood in it, and felt like she was having fever and chills. She also started to have shortness of breath. Has been having poor appetite in the last 2 to 3 days. Denies any vomiting or diarrhea. After she was evaluated in the ER, she was admitted to the hospital with pneumonia, respiratory failure with hypoxia, and sepsis. She was admitted to ICU and I saw her this morning, she was on BiPAP. The patient is awake, alert, and answering all the questions appropriately. Allergies: TO CODEINE. Medications: List reviewed. Review of Systems: Respiratory: As mentioned above. Constitutional: As mentioned above. All other systems reviewed and negative. Family History: Father had hypertension and leukemia. Mother had hypertension, stroke and bladder cancer. Sister has hypertension and coronary artery disease. Social History: Prior history of smoking but not at present time and negative for alcohol use. Past Surgical History: Cholecystectomy and tube ligation. Past Medical History: Significant for hypertension, hyperlipidemia, osteoarthritis at multiple sites, prior history of ascending cholangitis, chronic kidney disease stage 3, COPD, GERD, diverticulosis, osteopenia, impaired fasting glucose, hypothyroidism, and anemia. Physical Examination: Vital Signs: Temperature 96.4, pulse 54, respiratory rate 18, blood pressure 95/53, oxygen saturation 96%. Height 5 feet 2 inches, weight 118 pounds. General: Awake, alert, oriented, not in distress. HEENT: Head atraumatic, normocephalic. Conjunctivae nonerythematous. Sclerae white. Mouth, no thrush or edema noted. Ears/Nose, no mass, lesion, discharge noted. Neck: Supple. No JVD, lymph nodes, bruit, thyromegaly noted. Lungs: The patient remains on BiPAP, answering questions appropriately, not using any accessory muscles of respirations. Breath sounds, bilateral good equal air entry with presence of rales noted in right upper and mid lung chavez. Heart: Normal heart sounds, no murmur or gallop. Abdomen: Soft, bowel sounds normal. No guarding, rigidity, tenderness, mass, hepatosplenomegaly, distention, or bruit noted. Extremities: No leg edema. No calf tenderness. Skin: No rash, ulcer, cellulitis. Lymphatics: No lymph node enlargement in neck, supraclavicular, infraclavicular region. Neuro: No focal neurological deficit. Chest: Unremarkable. External Genitalia: Deferred. Rectal: Deferred. Laboratory Data: White count 19.2, hemoglobin 9.7, platelets 215. Sodium 133, potassium 4.2, chloride 106, bicarb 19, BUN 31, creatinine 1.68, glucose 203. Lactic acid 3.8, and after initial treatment in the emergency room, lactic acid came down to 1.9 this morning. Liver function tests, AST 111, ALT 64, alkaline phosphatase 147, total bilirubin 0.6. Troponin 14.6. ProBNP 4453. Chest x-ray shows right middle lobe infiltrate. Impression: 1. Pneumonia. 2. Acute respiratory failure with hypoxia. 3. Sepsis. 4. Volume depletion. 5. Acute kidney injury. 6. Chronic kidney disease stage 3A. 7. Anemia, chronic, unspecified. 8. Hypertension. 9. Hyperlipidemia. 10. Osteoarthritis, multiple sites. Plan: We will go ahead and admit the patient to hospital for further evaluation and management of this problem. Patient is appropriate for inpatient and is expected to spend 2 midnights in the hospital. For her respiratory failure with hypoxia, we will go ahead and continue oxygen replacement therapy along with use of BiPAP. For pneumonia, we will continue empiric antibiotic which will be vancomycin, azithromycin, and cefepime. Pulmonary consultation has been requested from Dr. Farrar and I have discussed details with him. For sepsis, which is due to underlying pneumonia, we will go ahead and treat it with IV fluid, IV antibiotics. The patient has received so far 750 cc of fluid in the emergency room and I have ordered another 250 cc bolus and then IV fluid to be continued at 100 cc/hour. Even though her proBNP is elevated clinically, there is no evidence of congestive heart failure at this point. ProBNP is elevated due to underlying sepsis and pneumonia problem. DVT prophylaxis will be given using Lovenox. I have discussed with the patient regarding her advanced directives and DNR order was written in the chart as per patient's decision. For abnormal liver function tests, there will not be any need for further intervention except monitoring. I will see her tomorrow for followup and details of plan of treatment discussed with her. ELI/MARY Voice ID: [id number] MTDD
--- NOTE | 2024-01-05 10:46 | P.CNS ---
Date of Consult: 01/05/24 Reason for Consult: Severe right upper lobe pneumonia Chief Complaint: Hypoxemia hemoptysis History of Present Illness: Patient is 83 years of age admitted from the emergency room with severe right upper lobe pneumonia admitted with cough congestion some hemoptysis is also very hypoxic currently on BiPAP she is doing better more alert responsive T Allergies codeine Adverse Reaction (Verified 06/18/18 03:10) Shortness of breath Home Medications: Amlodipine Besylate 5 mg PO DAILY 06/18/18 Ascorbic Acid [Vitamin C*] 1,000 mg PO DAILY 06/18/18 Aspirin [Aspirin EC 325 MG] 325 mg PO DAILY 06/18/18 Calcium Carbonate/Vitamin D3 [Caltrate 600 Plus D3 Tablet] 2 tab PO DAILY 06/18/18 Cholecalciferol (Vitamin D3) [Vitamin D 1000 Iu Tab*] 1,000 unit PO DAILY 06/18/18 Levothyroxine Sodium 50 mcg PO DAILY 06/18/18 Metoprolol Succinate 25 mg PO DAILY 06/18/18 Pantoprazole Sodium [Protonix] 40 mg PO DAILY 06/18/18 Simvastatin 20 mg PO DAILY 06/18/18 - Past Medical/Surgical History Diabetic: No -: HTN -: hypothyroidism -: hyperlipidemia -: jerod -: tubal ligation - Family History Mother Medical History: Hypertension, Cancer Father Medical History: Hypertension, Other (see notes) Notes: leukemia Brother Medical History: Diabetes - Social History Alcohol use: No CD- Drugs: No Caffeine use: Yes Place of Residence: Home Review of Systems is unable to be obtained Physical Examination Temp Pulse Resp BP Pulse Ox 97.1 F 52 18 114/61 97 01/05/24 08:00 01/05/24 10:00 01/05/24 10:00 01/05/24 10:00 01/05/24 10:00 General: Alert, Cooperative HEENT: Atraumatic Neck: Supple Respiratory: Crackles/rales (Crackles on the right side) Cardiovascular: No edema, Regular rate/rhythm, Normal S1 S2 Gastrointestinal: Normal bowel sounds, Soft and benign, Non-distended Laboratory Data (last 24 hrs) 01/05/24 01/05/24 01/05/24 03:23 03:23 03:23 WBC 19.20 H Hgb 9.7 L Hct 28.8 L Plt Count 259 PT 20.0 H INR 1.85 APTT 36.2 Sodium 133 L Potassium 4.2 BUN 31 H Creatinine 1.68 H Glucose 203 H Total Bilirubin 0.6 AST 111 H ALT 64 H Alkaline Phosphatase 147 H - Problems (1) Pneumonia Current Visit: Yes Status: Acute Plan: Patient is 83 years of age admitted with severe community-acquired pneumonia the organ dysfunction with abnormal LFTs lactic acid elevated renal function is also abnormal white count is 19,000 patient is also hypoxic chest x-ray shows a right upper lobe consolidation continue with IV antibiotics nasal MRSA culture most likely this appears to be a streptococcal pneumonia blood cultures are pending continue with IV fluids try nasal cannula or Vapotherm labs chest x-rays all reviewed Qualifiers: Pneumonia type: due to unspecified organism Laterality: right
[2024-01-05] MEDS ORDERED: BENZONATATE 100 MG CAP PO PRN (14:09)
[2024-01-05] MEDS ORDERED: GUAIFENESIN/DM 5 ML UCUP PO PRN (14:09)
[2024-01-05] MEDS: GUAIFENESIN/DM 5 ML UCUP PO SCH (14:18)
[2024-01-05] MEDS: BENZONATATE 100 MG CAP PO SCH (14:18)
[2024-01-05] MEDS ORDERED: ALPRAZOLAM 0.5 MG TABLET ONE ×2 (18:19→19:46)
[2024-01-05] MEDS: ALPRAZOLAM 0.5 MG TABLET PO ONE (18:20)
[2024-01-05] MEDS ORDERED: BENZONATATE 100 MG CAP PO ONE (19:45)
[2024-01-05] MEDS: ALPRAZOLAM 0.5 MG TABLET PO PRN (20:03)
[2024-01-06] MEDS ORDERED: BENZONATATE 100 MG CAP PO ONE ×3 (01:52→20:03)
[2024-01-06] MEDS ORDERED: GUAIFENESIN/DM 5 ML UCUP ONE ×3 (01:53→20:04)
[2024-01-06 03:34] LABS: Absolute Lymphocytes (CBC) 1.2 K/uL (0.7-4.9); Absolute Monocytes 1.1 K/uL (0.1-1.3); Absolute Neutrophil 24.3 K/uL (1.8-8.0); Basophils % 0.1 % (0-1.3); Hemoglobin 10.1 g/dL (12.0-15.0); Lymphocytes % 4.5 % (15.3-44.8); MCHC 32.7 g/dL (32.0-36.0); MCV 88.6 fL (80-100); MPV 8.1 fL (7.6-11.3); Monocytes % 4.3 % (3.3-12.3); Neutrophils % 91.1 % (41.7-73.7); Platelets 278 thou/uL (152-406); RBC Red Blood Cell Count 3.49 M/uL (3.86-4.86); Red Cell Distribution Width 15.3 % (12.1-15.2)
[2024-01-06 03:56] LABS: Albumin 2.4 g/dL (3.4-5.0); Albumin/Globulin Ratio 0.6 (1.1-1.8); Anion Gap 11.4 mEq/L (5.0-15.0); Bilirubin Total 0.6 mg/dL (0.2-1.0); Globulin 4.3 g/dL (2.3-3.5); Potassium 4.4 mEq/L (3.5-5.1); Protein, Total 6.7 g/dL (6.4-8.2)
[2024-01-06 04:39] LABS: Band Neutrophils 8 % (0-1); Differential Total Cells Count 100; Lymphocytes 8 % (15-42); Monocytes 3 % (0-10); Segmented Neutrophils 81 % (40-80)
[2024-01-06 04:40] LABS: Blood Morphology Comment NOTED (NOT SEEN); Burr Cells 3+; Platelet Estimate ADEQ
[2024-01-06] MEDS ORDERED: FUROSEMIDE 20 MG/ 2ML VIAL ONE (07:37)
[2024-01-06] MEDS ORDERED: METHYLPREDNISOLONE 40 MG INJ ONE ×2 (07:37→20:03)
--- NOTE | 2024-01-06 07:38 | RAD REPORT ---
EXAM DESCRIPTION: RAD - Chest Single View - 01/06/2024 5:11 am CLINICAL HISTORY: Pneumonia Chest pain. COMPARISON: Chest Single View dated 01/05/2024; Chest Pa And Lat (2 Views) dated 12/19/2023; Chest Pa And Lat (2 Views) dated 09/11/2023; Chest Single View dated 06/22/2020 FINDINGS: Portable technique limits examination quality. Extensive bilateral pulmonary opacities are present, which have moderately worsened since yesterday's study. The heart is moderately enlarged in size. No displaced fractures. IMPRESSION: Moderate worsening in lung aeration seen since yesterday's study.
[2024-01-06] MEDS ORDERED: IPRATROPIUM BROM 0.5MG/2.5ML ONE (07:40)
[2024-01-06] MEDS: FUROSEMIDE 20 MG/ 2ML VIAL IV ONE ×3 (07:41→13:43)
[2024-01-06] MEDS: METHYLPREDNISOLONE 125 MG INJ IV ONE (07:41)
[2024-01-06] MEDS ORDERED: DEXMEDETOMIDINE HCL 200 MCG in NA CHLORIDE 0.9% 98 ML IV SCH (08:00)
[2024-01-06] MEDS: D5 0.9 NS 1,000 ML IV SCH (08:00)
[2024-01-06] MEDS: DEXMEDETOMIDINE HCL 1,000 MCG in NA CHLORIDE 0.9% 490 ML IV SCH (08:02)
[2024-01-06] MEDS ORDERED: CEFEPIME 2 GM VIAL ONE ×2 (08:10→20:03)
[2024-01-06] MEDS ORDERED: ENOXAPARIN 30 MG/0.3 ML SQ ONE (08:10)
[2024-01-06] MEDS ORDERED: AZITHROMYCIN 500 MG INJ IVPB ONE (08:10)
[2024-01-06] MEDS ORDERED: NA CHLORIDE 0.9% 250 ML ONE (08:11)
[2024-01-06] MEDS ORDERED: NA CHLORIDE 0.9% 100 ML ONE ×2 (08:11→20:04)
[2024-01-06] MEDS: AZITHROMYCIN IV 500 MG in NA CHLORIDE 0.9% 250 ML IVPB SCH (08:14)
[2024-01-06] MEDS: ENSURE HIGH PROTEIN 237 ML CAN PO SCH (08:15)
[2024-01-06] MEDS ORDERED: AZITHROMYCIN IV 500 MG in NA CHLORIDE 0.9% 250 ML IVPB SCH (09:00)
--- NOTE | 2024-01-06 11:53 | P.PN ---
Subjective Date of Service: 01/06/24 Chief Complaint: ARDS Patient's condition deteriorated became more hypoxic tachypneic tachycardic chest x-ray is much worse Review of Systems is unable to be obtained Physical Examination - Vital Signs Temperature: 97.2 F Blood Pressure: 108/52 Pulse: 57 Respirations: 29 Pulse Ox (%): 94 - Physical Exam General: Unresponsive Respiratory: Crackles/rales, Expiratory wheezes Cardiovascular: No edema, Regular rate/rhythm, Normal S1 S2 Gastrointestinal: Normal bowel sounds, Soft and benign Assessment And Plan - Current Problems (Diagnosis) (1) Respiratory failure Current Visit: Yes Status: Acute Plan: Patient's condition has deteriorated chest x-ray looks much worse now has ARDS increase PEEP titrate sat to 90 to 95% Lasix also given patient also started on some Solu-Medrol prognosis is poor white count elevated renal function improving prognosis poor started on Precedex use the Lasix as tolerated containing slight negative fluid balance
--- NOTE | 2024-01-06 12:02 | RAD REPORT ---
EXAM DESCRIPTION: RAD - Chest Single View - 01/05/2024 3:33 am CLINICAL HISTORY: The patient is 83 years old and is Female; DYSPNEA TECHNIQUE: Frontal view of the chest. COMPARISON: No relevant prior studies available. FINDINGS: Lungs: Focal consolidation in the mid right lung. Prominent interstitial markings suggestive of chronic changes and/or interstitial edema. Pleural space: Unremarkable. No pneumothorax. Heart: Unremarkable. Mediastinum: Unremarkable. Normal mediastinal contour. Bones/joints: No acute findings. IMPRESSION: 1. Focal consolidation in the mid right lung. 2. Prominent interstitial markings suggestive of chronic changes and/or interstitial edema. Electronically signed by: Pieter Simons MD 01/05/2024 05:11 AM CDT Due to temporary technical issues with the PACS/Fluency reporting system, reports are being signed by the in house radiologist without review as a courtesy to ensure prompt reporting. The interpreting r adiologist is fully responsible for the content of the report.
[2024-01-06] MEDS ORDERED: VANCOMYCIN 1 GM in NA CHLORIDE 0.9% 250 ML IVPB SCH (18:00)
[2024-01-06] MEDS ORDERED: VANCOMYCIN 1 GM/VIAL ONE (19:18)
[2024-01-06] MEDS ORDERED: NA CHLORIDE 0.9% 200 ML ONE (19:18)
[2024-01-06] MEDS: VANCOMYCIN 1 GM in NA CHLORIDE 0.9% 250 ML IVPB SCH (19:19)
[2024-01-06] MEDS: METHYLPREDNISOLONE 40 MG INJ IV SCH (20:06)
--- NOTE | 2024-01-06 20:07 | PN ---
Date of Progress Note: 01/06/2024 Subjective: The patient was seen this morning for followup. She was on BiPAP, tachypneic. Overall, her condition has deteriorated compared to yesterday. She was also having lot of anxiety problem ye sterday and required use of Xanax. This morning, when I saw her, she was sleeping, did not wake up t o communicate with me. Objective: Vital Signs: Reviewed. HEENT: Unremarkable. Lungs: Bilateral equal air entry. Presence of crackles noted in both lung chavez. Heart: Sounds normal. Abdomen: Soft. Bowel sounds normal. No guarding, rigidity, tenderness, distention. Extremities: No leg edema. Laboratory Data: White count 26.6, hemoglobin 10.1, platelets 278. Sodium 140, potassium 4.4, chlor michael 113, bicarb 20, BUN 32, creatinine 1.40, glucose 136. Chest x-ray shows extensive bilateral diff use infiltrate involving both lungs and today's chest x-ray looks a lot worse than yesterday. Impression: 1.Pneumonia. 2.Acute respiratory failure with hypoxia. 3.Acute respiratory distress syndrome. 4.Sepsis. Plan: We will go ahead and continue oxygen, BiPAP therapy, continue nebulizer treatment and current antibiotics per order. We will continue to follow with Dr. Farrar. The patient was given Lasix 20 mg IV x1 dose, this morning, which was ordered and Dr. Farrar has started her on steroid. I also ordered Dobhoff tube feeding, but subsequently ICU nurse called and informed me that the patient refu sed to have any kind of artificial tube feeding. Her advance directive is do not resuscitate. We wi ll continue Lovenox for DVT prophylaxis. Overall, her prognosis is very poor and patient's daughter was contacted from my office and details were discussed with her and she was made aware of poor progn osis. I will see her tomorrow for followup. We will repeat blood work tomorrow. Sol catheter was ordered for monitoring of strict intake and output records. The patient received second dose of Las ix this afternoon per Dr. Farrar. After first dose of Lasix, she urinated approximately 800 cc or so. ELI/MODL Voice ID: [id number] Report ID: [id number]
[2024-01-07] MEDS ORDERED: BENZONATATE 100 MG CAP PO ONE ×4 (02:13→19:47)
[2024-01-07] MEDS ORDERED: GUAIFENESIN/DM 5 ML UCUP ONE ×2 (02:13→13:08)
[2024-01-07 04:58] LABS: Absolute Lymphocytes (CBC) 0.6 K/uL (0.7-4.9); Absolute Monocytes 0.5 K/uL (0.1-1.3); Absolute Neutrophil 14.7 K/uL (1.8-8.0); Basophils % 0.2 % (0-1.3); Hematocrit 26.9 % (36.0-45.0); Hemoglobin 9.1 g/dL (12.0-15.0); MCH 29.8 pg (27.0-35.0); MCHC 33.9 g/dL (32.0-36.0); MCV 87.8 fL (80-100); Platelets 274 thou/uL (152-406); RBC Red Blood Cell Count 3.06 M/uL (3.86-4.86); Red Cell Distribution Width 14.8 % (12.1-15.2)
[2024-01-07 05:04] LABS: Neutrophils % 92.8 % (41.7-73.7)
[2024-01-07 05:07] LABS: Anion Gap 11.6 mEq/L (5.0-15.0); Magnesium 2.5 mg/dL (1.6-2.4); Potassium 3.6 mEq/L (3.5-5.1)
[2024-01-07] MEDS: D5 0.9 NS 1,000 ML IV SCH (06:45)
[2024-01-07] MEDS ORDERED: IPRATROPIUM BROM 0.5MG/2.5ML ONE ×3 (07:55→20:30)
--- NOTE | 2024-01-07 07:56 | RAD REPORT ---
EXAM DESCRIPTION: Adali Single View01/07/2024 5:06 am CLINICAL HISTORY: Chest pain COMPARISON: January 06, 2024 FINDINGS: Slight improvement in extensive bilateral pulmonary opacities Heart remains enlarged IMPRESSION: Slight improvement extensive bilateral pulmonary opacities which probably represent pneu monia
[2024-01-07] MEDS ORDERED: AZITHROMYCIN 500 MG INJ IVPB ONE (08:03)
[2024-01-07] MEDS ORDERED: NA CHLORIDE 0.9% 250 ML ONE (08:04)
[2024-01-07] MEDS ORDERED: CEFEPIME 2 GM VIAL ONE ×2 (08:04→19:47)
[2024-01-07] MEDS ORDERED: NA CHLORIDE 0.9% 100 ML ONE ×3 (08:04→19:57)
[2024-01-07] MEDS: Mupirocin NASAL 2 APPL/1 GM TUBE NAS SCH (11:00)
--- NOTE | 2024-01-07 11:45 | RAD REPORT ---
EXAM DESCRIPTION: RAD - Chest Single View - 01/07/2024 11:32 am CLINICAL HISTORY: Device placement PICC line placement IMPRESSION: PICC line with its tip in the distal superior vena cava
--- NOTE | 2024-01-07 12:13 | P.PN ---
Subjective Date of Service: 01/07/24 Chief Complaint: ARDS Patient is still requiring BiPAP alert responsive patient states that she wants to refusing tube feeds Review of Systems General: Weakness Respiratory: Shortness of Breath Physical Examination - Vital Signs Temperature: 97.5 F Blood Pressure: 110/51 Pulse: 59 Respirations: 25 Pulse Ox (%): 96 - Physical Exam General: Alert, Cooperative Respiratory: Crackles/rales Cardiovascular: No edema, Regular rate/rhythm, Normal S1 S2 Assessment And Plan - Current Problems (Diagnosis) (1) Respiratory failure Current Visit: Yes Status: Acute Plan: Patient admitted with respiratory failure diffuse bilateral changes on chest x- ray cultures negative renal function is slightly worse white count is declined so far cultures are negative DC vancomycin patient is refusing treatment wants to will discuss with daughter regarding withdrawal of care daily Rolando still is on BiPAP respiratory failure chest x-ray diffuse changes oxygenation satisfactory 40%
[2024-01-07] MEDS ORDERED: FUROSEMIDE 20 MG/ 2ML VIAL ONE (13:07)
[2024-01-07] MEDS ORDERED: MUPIROCIN 2% OINT 22GM TUBE TOP ONE (13:07)
[2024-01-07] MEDS: FUROSEMIDE 20 MG/ 2ML VIAL IV ONE (13:12)
[2024-01-07] MEDS ORDERED: AA 5%/D20W/ELECTROLYTES-TPN 2,000 ML, Lipids 20% 250 ML with MULTIVITAMINS INJ 10 ML IV SCH (17:00)
[2024-01-07] MEDS: AA 5%/D20W/ELECTROLYTES-TPN 2,000 ML, Lipids 20% 250 ML with MULTIVITAMINS INJ 10 ML IV SCH (17:17)
--- NOTE | 2024-01-07 20:04 | PN ---
Date of Progress Note: 01/07/2024 Subjective: The patient was seen this morning for followup. She remains on BiPAP. This morning whe n I saw her, she was lying in bed in ICU, not in any distress, and today she was not tachypneic like yesterday. Vital signs reviewed. Intake and output records reviewed. Overnight, no new complaints or problems reported by nursing staff. Objective: HEENT: Unremarkable. Lungs: Bilateral good equal air entry. No wheezing. Presence of minimal rales on the right side, o verall better today than yesterday. Heart: Sounds normal. Abdomen: Soft. Bowel sounds normal. No guarding, rigidity, tenderness, distention. Extremities: No leg edema. Laboratory Data: White count 15.8, hemoglobin 9.1, platelets 274. Sodium 142, potassium 3.6, chlori de 114, bicarb 20, BUN 48, creatinine 1.42, glucose 148. Chest x-ray showing bilateral infiltrate, b ut improvement on today's chest x-ray compared to yesterday noted. Impression: 1.Pneumonia. 2.Acute respiratory failure with hypoxia. 3.ARDS. 4.Chronic kidney disease stage 3B. Plan: We will go ahead and continue current medications. Continue current oxygen replacement therap y, BiPAP, and continue to follow with Dr. Farrar. The patient remains on antibiotics for pneumonia . Continue DVT prophylaxis using Lovenox. For nutritional support, the patient is agreeable to start TPN, so PICC line was ordered and TPN will be started per order. I nisa power see her tomorrow for followup. ELI/MODL Voice ID: [id number] Report ID: [id number]
[2024-01-08] MEDS ORDERED: IPRATROPIUM BROM 0.5MG/2.5ML ONE ×4 (00:41→21:17)
[2024-01-08] MEDS ORDERED: BENZONATATE 100 MG CAP PO ONE ×4 (01:46→19:46)
[2024-01-08] MEDS ORDERED: GUAIFENESIN/DM 5 ML UCUP ONE ×2 (01:46→14:54)
[2024-01-08 04:58] LABS: Absolute Lymphocytes (CBC) 0.7 K/uL (0.7-4.9); Absolute Monocytes 0.3 K/uL (0.1-1.3); Absolute Neutrophil 11.2 K/uL (1.8-8.0); Basophils % 0.2 % (0-1.3); Hematocrit 25.7 % (36.0-45.0); Hemoglobin 8.8 g/dL (12.0-15.0); MCH 29.8 pg (27.0-35.0); MCHC 34.2 g/dL (32.0-36.0); MCV 87.2 fL (80-100); Monocytes % 2.6 % (3.3-12.3); Platelets 282 thou/uL (152-406); RBC Red Blood Cell Count 2.95 M/uL (3.86-4.86)
[2024-01-08 04:59] LABS: Neutrophils % 91.2 % (41.7-73.7)
[2024-01-08 05:12] LABS: Anion Gap 11.3 mEq/L (5.0-15.0); Magnesium 2.7 mg/dL (1.6-2.4); Potassium 3.3 mEq/L (3.5-5.1)
[2024-01-08] MEDS ORDERED: AZITHROMYCIN 500 MG INJ IVPB ONE (07:47)
[2024-01-08] MEDS ORDERED: NA CHLORIDE 0.9% 250 ML ONE (07:48)
[2024-01-08] MEDS ORDERED: CEFEPIME 2 GM VIAL ONE ×2 (07:48→20:19)
[2024-01-08] MEDS ORDERED: NA CHLORIDE 0.9% 100 ML ONE (07:48)
--- NOTE | 2024-01-08 08:12 | RAD REPORT ---
EXAM DESCRIPTION: RAD - Chest Single View - 01/08/2024 4:51 am CLINICAL HISTORY: Pneumonia Chest pain. COMPARISON: Chest Single View dated 01/07/2024; Chest Single View dated 01/07/2024; Chest Single View dated 01/06/2024; Chest Single View dated 01/05/2024 FINDINGS: Portable technique limits examination quality. Moderate bilateral pulmonary opacities are present, mildly improved since yesterday's radiograph. The heart is mildly prominent in size. No displaced fractures.Right PICC line is stable with its tip in the SVC. IMPRESSION: Mild improvement in lung aeration noted since yesterday's examination.
[2024-01-08] MEDS ORDERED: D50W 25 GM/50 ML SYRINGE IV PRN (08:42)
[2024-01-08] MEDS ORDERED: GLUCAGON 1 MG/VIAL IM PRN (08:42)
[2024-01-08] MEDS ORDERED: D10W 125 ML IV PRN (08:47)
[2024-01-08] MEDS ORDERED: INSULIN GLARGINE 100 UNIT/ML SQ ONE (09:47)
[2024-01-08] MEDS ORDERED: INSULIN REGULAR (HUMAN) 100 UNIT/ML ONE ×3 (09:48→17:30)
[2024-01-08] MEDS: INSULIN REGULAR (HUMAN) 100 UNIT/ML SQ SCH (09:53)
[2024-01-08] MEDS: INSULIN GLARGINE 100 UNIT/ML SQ SCH (09:54)
--- NOTE | 2024-01-08 10:16 | PN ---
Date of Progress Note: 01/08/2024 Subjective: The patient was seen this morning for followup. The patient was on BiPAP, hemodynamical ly stable, no new complaints or problems reported overnight. Yesterday, she did have approximately 2 0 to 24 ounces of water, but she did not drink any Ensure. PICC line was placed yesterday and the sera maxwell was started on TPN and she is tolerating that very well. Vital signs reviewed. Intake and out put records reviewed. Physical Examination: HEENT: Unremarkable. Lungs: Bilateral equal air entry. No wheezing. No rales. Air exchange is equal, but shallow breat destin. Not using accessory muscles of respiration. Heart: Sounds normal. Abdomen: Soft. Bowel sounds normal. No guarding, rigidity, tenderness, distention. Extremities: No leg edema. Laboratory Data: White count 12.3, hemoglobin 8.8, platelets 282. Sodium 137, potassium 3.3, chlori de 109, bicarb 20, BUN 72, creatinine 1.70, glucose 366. Chest x-ray shows mild improvement in infil trate compared to yesterday. Impression: 1.Pneumonia. 2.Acute respiratory failure with hypoxia. 3.ARDS. 4.Acute kidney injury. 5.Hypokalemia. 6.Anemia. Plan: We will go ahead and continue current antibiotic. The patient is on cefepime and azithromycin . Dr. Farrar had discontinued her vancomycin. Her pneumonia seems to be improving. The patient r emains on oxygen and BiPAP. Continue current DVT prophylaxis using Lovenox. Replace potassium per p rotocol. Her glucose is high and this is due to TPN and we will start long-acting insulin Semglee 10 units subcutaneous injection daily and start sliding scale every 6 hours. I did encourage the patie nt to try to drink Ensure today. I will see her tomorrow for followup. ELI/MODL Voice ID: [id number] Report ID: [id number]
[2024-01-08] MEDS ORDERED: KCL 20 MEQ/100 mL IVPB 200 ML IV ONE (11:58)
[2024-01-08] MEDS: KCL 20 MEQ/100 mL IVPB 20 MEQ/100 ML BAG IV SCH (12:01)
--- NOTE | 2024-01-08 12:14 | P.PN ---
Subjective Date of Service: 01/08/24 Chief Complaint: ARDS Patient is in respiratory failure requiring BiPAP currently on TPN Review of Systems is unable to be obtained Physical Examination - Vital Signs Temperature: 98.3 F Blood Pressure: 113/61 Pulse: 56 Respirations: 29 Pulse Ox (%): 94 - Physical Exam General: Unresponsive Respiratory: Crackles/rales Capillary refill: <2 Seconds Gastrointestinal: Normal bowel sounds, Soft and benign Assessment And Plan - Current Problems (Diagnosis) (1) Respiratory failure Current Visit: Yes Status: Acute Plan: Patient has ARDS from pneumonia quiring BiPAP not tolerating Vapotherm started on TPN renal function is slightly worse continue with TPN monitor renal function prognosis poor consider LTAC cultures all negative continue with steroids for now Qualifiers: Chronicity: acute
[2024-01-08] MEDS ORDERED: NA CHLORIDE 0.9% 200 ML ONE (20:20)
[2024-01-08] MEDS ORDERED: ALBUTEROL 2.5 MG/3 ML NEB SOL ONE (21:17)
[2024-01-09] MEDS ORDERED: INSULIN REGULAR (HUMAN) 100 UNIT/ML ONE ×5 (00:28→23:40)
[2024-01-09] MEDS ORDERED: ALBUTEROL 2.5 MG/3 ML NEB SOL ONE (01:03)
[2024-01-09] MEDS: ALBUTEROL 2.5 MG/3 ML NEB SOL NEB PRN (01:09)
[2024-01-09] MEDS ORDERED: IPRATROPIUM BROM 0.5MG/2.5ML ONE ×3 (01:11→13:08)
[2024-01-09] MEDS ORDERED: BENZONATATE 100 MG CAP PO ONE ×3 (01:57→19:25)
[2024-01-09] MEDS ORDERED: GUAIFENESIN/DM 5 ML UCUP ONE ×2 (01:58→07:43)
[2024-01-09 05:08] LABS: Absolute Lymphocytes (CBC) 0.4 K/uL (0.7-4.9); Absolute Monocytes 0.5 K/uL (0.1-1.3); Absolute Neutrophil 16.2 K/uL (1.8-8.0); Basophils % 0.2 % (0-1.3); Hematocrit 27.5 % (36.0-45.0); Hemoglobin 9.4 g/dL (12.0-15.0); Lymphocytes % 2.5 % (15.3-44.8); MCH 29.5 pg (27.0-35.0); MCV 86.8 fL (80-100); MPV 7.7 fL (7.6-11.3); Monocytes % 3.1 % (3.3-12.3); Platelets 302 thou/uL (152-406); RBC Red Blood Cell Count 3.17 M/uL (3.86-4.86); Red Cell Distribution Width 15.1 % (12.1-15.2)
[2024-01-09 05:09] LABS: Neutrophils % 94.2 % (41.7-73.7)
[2024-01-09 05:18] LABS: Magnesium 2.7 mg/dL (1.6-2.4)
--- NOTE | 2024-01-09 07:19 | PN ---
Date of Progress Note: 01/09/2024 Subjective: The patient was seen this morning for followup. She was lying in bed in ICU, on BiPAP. She did have some Ensure last night and during daytime yesterday. She remains on oxygen replacement therapy along with BiPAP. Objective: Vital Signs: Reviewed. Last temperature this morning was 97.2, and she has remained afe brile in last 24 hours. Last pulse 61, respiratory rate 24, blood pressure 106/91, oxygen saturation 98%. HEENT: Unremarkable. Lungs: Bilateral equal air entry. No rales. No wheezing. Heart: Sounds normal. Abdomen: Soft. Bowel sounds normal. No guarding, rigidity, tenderness, or distention. Extremities: No leg edema. Laboratory Data: White count 17.2, hemoglobin 9.4, platelets 302. Sodium 137; potassium 4; chloride 112; bicarb 21; BUN 77, yesterday BUN was 72; creatinine 1.55, yesterday it was 1.70; glucose 307. Fingerstick blood sugar readings reviewed, and all her sugars in last 24-hour reading have been more than 250, and it is in range of 250 to 330 or so. Impression: 1.Pneumonia. 2.Acute respiratory failure with hypoxia. 3.Acute respiratory distress syndrome. 4.Acute kidney injury. 5.Hyperglycemia secondary to total parenteral nutrition and steroid use. Plan: We will go ahead and continue to follow up with Dr. Farrar from Pulmonary Service. Continue BiPAP, oxygen replacement therapy. The patient remains on azithromycin and cefepime for her antibio tics. We will continue that. We will continue Lovenox for DVT prophylaxis. The patient was encoura ged to continue to try to drink Ensure. She is on long-acting insulin, Semglee 10 units subcutaneous injection daily and I will increase it to 15 units daily. We will also continue sliding scale insulin per order. We will see her tomorrow for followup. ELI/MODL Voice ID: [id number] Report ID: [id number]
[2024-01-09] MEDS: ONDANSETRON 4 MG/2 ML VIAL IV PRN (07:30)
[2024-01-09] MEDS ORDERED: ONDANSETRON 4 MG/2 ML VIAL ONE (07:34)
[2024-01-09] MEDS ORDERED: FUROSEMIDE 20 MG/ 2ML VIAL ONE (07:43)
[2024-01-09] MEDS: FUROSEMIDE 20 MG/ 2ML VIAL IV ONE (07:45)
[2024-01-09] MEDS ORDERED: METHYLPREDNISOLONE 40 MG INJ ONE (07:57)
[2024-01-09] MEDS ORDERED: CEFEPIME 2 GM VIAL ONE ×2 (07:58→19:40)
[2024-01-09] MEDS ORDERED: NA CHLORIDE 0.9% 100 ML ONE (07:58)
[2024-01-09] MEDS ORDERED: NA CHLORIDE 0.9% 250 ML ONE (07:58)
[2024-01-09] MEDS ORDERED: INSULIN GLARGINE 100 UNIT/ML SQ ONE (07:58)
[2024-01-09] MEDS ORDERED: ENOXAPARIN 30 MG/0.3 ML SQ ONE (07:59)
[2024-01-09] MEDS: INSULIN GLARGINE 100 UNIT/ML SQ SCH (08:03)
[2024-01-09] MEDS ORDERED: AZITHROMYCIN 500 MG INJ IVPB ONE (08:18)
--- NOTE | 2024-01-09 08:49 | RAD REPORT ---
EXAM DESCRIPTION: RADChest Single View01/09/2024 8:00 am CLINICAL HISTORY: possible aspiration COMPARISON: Chest Single View dated 01/08/2024; Chest Single View dated 01/07/2024; Chest Single View dated 01/07/2024; Chest Single View dated 01/06/2024 TECHNIQUE: Portable AP view of the chest. FINDINGS: Right arm PICC unchanged in position with tip projecting over the distal SVC. Allowing for patient rotation, there is progressive central and basilar predominant fluffy opacities, with bilate ral effusions more pronounced on the left. No pneumothorax. The cardiomediastinal contours are unrem arkable. IMPRESSION: Findings suggesting worsening pulmonary edema. Underlying pneumonia cannot be entirely e xcluded.
--- NOTE | 2024-01-09 12:46 | P.PN ---
Subjective Date of Service: 01/09/24 Chief Complaint: ARDS No change in patient's condition she is alert and responsive however patient is now tolerating high flow nasal cannula Review of Systems is unable to be obtained Physical Examination - Vital Signs Temperature: 96.9 F Blood Pressure: 112/52 Pulse: 58 Respirations: 26 Pulse Ox (%): 93 - Physical Exam General: Unresponsive Respiratory: Clear to auscultation bilaterally, Diminished Cardiovascular: No edema, Regular rate/rhythm, Normal S1 S2 Assessment And Plan - Current Problems (Diagnosis) (1) Respiratory failure Current Visit: Yes Status: Acute Plan: Patient has ARDS chest x-ray shows no change now tolerating high flow Vapotherm function is a little better apparently she vomited this morning we will give her a dose of Lasix his blood sugar is elevated he is on TPN reduce patient's Solu- Medrol he is also on insulin signs stable prognosis poor DC azithromycin Qualifiers: Chronicity: acute
[2024-01-09] MEDS: AA 5%/D20W/ELECTROLYTES-TPN 2,000 ML IV SCH (17:23)
[2024-01-09] MEDS ORDERED: NA CHLORIDE 0.9% 200 ML ONE (19:40)
[2024-01-09] MEDS: METHYLPREDNISOLONE 40 MG INJ IV SCH (20:01)
[2024-01-10] MEDS ORDERED: GUAIFENESIN/DM 5 ML UCUP ONE ×2 (01:29→14:12)
[2024-01-10] MEDS ORDERED: BENZONATATE 100 MG CAP PO ONE ×4 (01:29→21:21)
[2024-01-10] MEDS ORDERED: IPRATROPIUM BROM 0.5MG/2.5ML ONE ×3 (08:04→21:32)
[2024-01-10] MEDS ORDERED: NA CHLORIDE 0.9% 100 ML ONE ×3 (08:20→21:22)
[2024-01-10] MEDS ORDERED: Meropenem 500 MG VIAL IV ONE (08:20)
[2024-01-10] MEDS ORDERED: INSULIN GLARGINE 100 UNIT/ML SQ ONE (08:22)
[2024-01-10] MEDS ORDERED: CEFEPIME 2 GM VIAL ONE ×2 (08:22→21:21)
[2024-01-10 08:24] LABS: Absolute Lymphocytes (CBC) 0.6 K/uL (0.7-4.9); Absolute Monocytes 0.6 K/uL (0.1-1.3); Absolute Neutrophil 14.3 K/uL (1.8-8.0); Basophils % 0.1 % (0-1.3); Hematocrit 28.6 % (36.0-45.0); Hemoglobin 9.6 g/dL (12.0-15.0); Lymphocytes % 4.2 % (15.3-44.8); MCH 29.3 pg (27.0-35.0); MCHC 33.4 g/dL (32.0-36.0); MCV 87.5 fL (80-100); MPV 7.4 fL (7.6-11.3); Monocytes % 3.7 % (3.3-12.3); Platelets 194 thou/uL (152-406); RBC Red Blood Cell Count 3.27 M/uL (3.86-4.86); Red Cell Distribution Width 14.9 % (12.1-15.2)
[2024-01-10 08:35] LABS: Albumin 1.7 g/dL (3.4-5.0); Albumin/Globulin Ratio 0.4 (1.1-1.8); Anion Gap 7.4 mEq/L (5.0-15.0); Bilirubin Total 0.3 mg/dL (0.2-1.0); Globulin 4.1 g/dL (2.3-3.5); Potassium 4.4 mEq/L (3.5-5.1); Protein, Total 5.8 g/dL (6.4-8.2)
--- NOTE | 2024-01-10 09:17 | RAD REPORT ---
EXAM DESCRIPTION: NATASHASera Single View01/10/2024 8:42 am CLINICAL HISTORY: Chest pain COMPARISON: January 09, 2024 FINDINGS: Minimal improvement in the right and no significant change in the left pulmonary opacities . Heart remains enlarged IMPRESSION: Minimal improvement in the right and no significant change in the left pulmonary opaciti es
[2024-01-10 09:44] LABS: Blood Morphology Comment NOT SEEN (NOT SEEN); Platelet Estimate ADEQ; White Blood Cell Scan OK (OK)
--- NOTE | 2024-01-10 10:24 | PN ---
Date of Progress Note: 01/10/2024 Subjective: The patient was seen this morning for followup. Objective: VITAL SIGNS: Last temperature 96.9, pulse 59, respiratory rate 29, blood pressure 120/66 , oxygen saturation 96%. Vital signs reviewed. GENERAL: The patient was on BiPAP. This morning when I saw her, lying in bed, not in distress. HEENT: Unremarkable. Lungs: Bilateral equal air entry. No rhonchi. No rales. Heart: Sounds normal. Abdomen: Soft. Bowel sounds normal. No guarding, rigidity, tenderness, distention. Extremities: No leg edema. Laboratory Data: White count 15.5, hemoglobin 9.6, platelets 194. Sodium 139, potassium 4.4, chlori de 114, bicarb 22, BUN 91, creatinine 1.59, glucose 274, serum albumin 1.7. Chest x-ray shows slight improvement in the right lung field compared to yesterday, left side remains unchanged. Impression: 1.Pneumonia. 2.Acute respiratory failure with hypoxia. 3.ARDS. 4.Severe malnutrition. 5.Acute kidney injury. 6.Anemia, unspecified. Plan: We will go ahead and continue current medication. Her azithromycin was discontinued by Dr. Lyle nunez yesterday and she remains on cefepime. She also remains on IV steroids, oxygen, and BiPAP the rapy for her respiratory failure. DVT prophylaxis will be continued with Lovenox and last night I di d call the patient's daughter and discussed details with her. Her overall prognosis is poor. ELI/MODL Voice ID: [id number] Report ID: [id number]
[2024-01-10] MEDS ORDERED: INSULIN REGULAR (HUMAN) 100 UNIT/ML ONE ×2 (11:41→16:55)
--- NOTE | 2024-01-10 17:46 | EKG ---
Test Date: 2024-01-05 Test Time: 03:27:35 Real Estate Coordinator: WALI MEASUREMENT RESULTS: Intervals: Rate: 63 CA: 264 QRSD: 126 QT: 492 QTc: 503 [place]: P: 55 CA: 264 QRS: 121 T: 49 INTERPRETIVE STATEMENTS: Sinus rhythm with 1st degree AV block Nonspecific intraventricular block Nonspecific T wave abnormality Abnormal ECG Compared to ECG 06/22/2020 16:49:50 T-wave abnormality now present Myocardial infarct finding no longer present Electronically Signed On 01-10-24 17:29:42 CDT by Ramon Marks
[2024-01-10] MEDS ORDERED: MORPHINE 2 MG/ML SYR IV PRN (19:19)
[2024-01-10] MEDS ORDERED: IPRATROPIUM BROM 0.5MG/2.5ML NEB PRN (20:53)
--- NOTE | 2024-01-10 20:54 | P.PN ---
Subjective Date of Service: 01/10/24 Chief Complaint: ARDS No change in patient's condition still requiring BiPAP/high flow currently unresponsive on TPN Review of Systems is unable to be obtained Physical Examination - Vital Signs Temperature: 96.9 F Blood Pressure: 121/45 Pulse: 71 Respirations: 30 Pulse Ox (%): 100 - Physical Exam General: Unresponsive Respiratory: Crackles/rales Cardiovascular: No edema, Regular rate/rhythm, Normal S1 S2 - Studies Microbiology Data (last 24 hrs): 01/05/24 03:40 Blood - Blood Aerobic Blood Culture - Final No growth in 5 days. 01/05/24 03:40 Blood - Blood Anaerobic Blood Culture - Final No growth in 5 days. 01/05/24 03:23 Blood - Blood Aerobic Blood Culture - Final No growth in 5 days. 01/05/24 03:23 Blood - Blood Anaerobic Blood Culture - Final No growth in 5 days. Assessment And Plan - Current Problems (Diagnosis) (1) Respiratory failure Current Visit: Yes Status: Acute Plan: Patient admitted with respiratory failure ARDS a blood sugar is elevated patient is on TPN urine and creatinine also slightly worse white count is normal cultures negative chest x-ray shows bilateral interstitial changes vital signs are stable will DC steroids plan to wean down on oxygen as high flow/nasal cannula DC scheduled bronchodilators Qualifiers: Chronicity: acute
[2024-01-11] MEDS ORDERED: INSULIN REGULAR (HUMAN) 100 UNIT/ML ONE ×3 (00:12→11:39)
[2024-01-11 06:14] LABS: Hemoglobin 9.5 g/dL (12.0-15.0); MCH 29.4 pg (27.0-35.0); MCHC 33.8 g/dL (32.0-36.0); MCV 87.1 fL (80-100); Platelets 104 thou/uL (152-406); RBC Red Blood Cell Count 3.22 M/uL (3.86-4.86)
[2024-01-11 06:15] LABS: Absolute Monocytes 0.8 K/uL (0.1-1.3); Absolute Neutrophil 15.6 K/uL (1.8-8.0); Basophils % 0.2 % (0-1.3); Lymphocytes % 5.8 % (15.3-44.8); MPV 7.4 fL (7.6-11.3); Monocytes % 4.5 % (3.3-12.3); Neutrophils % 89.5 % (41.7-73.7); Red Cell Distribution Width 15.4 % (12.1-15.2)
[2024-01-11 06:21] LABS: Anion Gap 9.4 mEq/L (5.0-15.0); Magnesium 2.5 mg/dL (1.6-2.4); Potassium 4.4 mEq/L (3.5-5.1)
[2024-01-11 06:40] VITALS: BMI 25.0
[2024-01-11 08:06] LABS: Band Neutrophils 2 % (0-1); Blood Morphology Comment NOTED (NOT SEEN); Differential Total Cells Count 100; Lymphocytes 6 % (15-42); Monocytes 4 % (0-10); Myelocytes 1 % (0-0); Platelet Estimate DECR; Segmented Neutrophils 87 % (40-80)
[2024-01-11 08:07] LABS: Burr Cells 2+
[2024-01-11] MEDS ORDERED: INSULIN GLARGINE 100 UNIT/ML SQ ONE (08:19)
[2024-01-11] MEDS ORDERED: BENZONATATE 100 MG CAP PO ONE (08:21)
[2024-01-11] MEDS ORDERED: NA CHLORIDE 0.9% 100 ML ONE (08:21)
[2024-01-11] MEDS ORDERED: CEFEPIME 2 GM VIAL ONE (08:21)
[2024-01-11 08:38] VITALS: O2SAT 91
--- NOTE | 2024-01-11 12:19 | DS ---
Date of Discharge: 01/11/2024 Disposition: The patient will be admitted to in-hospital hospice care and hospice will take over her care. Physical Examination: General: The patient lying in bed, appearing very weak, on high-flow nasal cannula oxygen. Denies any complaints this morning. Answers questions appropriately. HEENT: Unremarkable. Lungs: Bilateral equal air entry. No rhonchi, rales. Heart: Sounds normal. Abdomen: Soft. Bowel sounds normal. No guarding, rigidity, tenderness, distention. Extremities: Edema of all 4 extremities present. Laboratory Data: White count 17.5, hemoglobin 9.5, platelets 104. Sodium 138, potassium 4.4, chloride 113, bicarb 20, BUN 94, creatinine 1.64, glucose 256. Final Diagnoses: 1. Pneumonia. 2. Acute respiratory failure with hypoxia. 3. ARDS. 4. Acute kidney injury. 5. Anemia. 6. Thrombocytopenia. 7. Anasarca. 8. Severe malnutrition. 9. Chronic obstructive pulmonary disease. 10. Hypertension. Hospital Course: This is an 83-year-old very pleasant female patient who was admitted to the hospital with pneumonia problem. Please see dictated H and P for more information. After the patient was evaluated in the ER, she was admitted to the hospital. Empiric antibiotics were started and pulmonary consultation was obtained from Dr. Farrar. The patient's pneumonia got worse within short time after she was admitted to the hospital and she remained in ICU since that time. The patient informed me that in the event of cardiopulmonary arrest she did not want any CPR, defibrillation or ventilator support, so DNR order was placed in the chart. IV fluids and IV antibiotics were given. DVT prophylaxis was given using Lovenox except today considering significant drop in her platelet count. I have asked nursing staff not to give Lovenox today. Her platelet yesterday was 194 and today 104. The patient has required BiPAP along with oxygen for her acute respiratory failure with hypoxia and significant problem with ARDS resulting in this hypoxia and ARDS. Initially, she was on azithromycin, cefepime, and vancomycin and later on Dr. Farrar discontinued vancomycin and subsequently he discontinued azithromycin as well. The patient also received IV Lasix from time to time and steroids. Her condition overall has not improved and progressively has declined. Yesterday evening nurse from ICU contacted me and informed me that the patient and her daughter they decided to withdraw all the care and let God and Nature take their course and I did talk to the patient's daughter on the phone regarding this and then subsequently the patient decided not to pursue this withdrawal of care and wanted to give some more time. This morning when I came into hospital to see her in ICU, initially her sister was present with her at bedside and at that time the patient and her sister they both informed me that the patient now has decided to stop everything and let God and Nature take their course. So I did directly communicate with the patient this morning and confirmed her decision that she wants to stop all IV fluids, IV antibiotics, and initially she will continue her oxygen, but then later on she may decide to discontinue or not, but at least to start with. She is only requesting comfort care and rest of the medication and treatment to be discontinued. With that in mind, I did bring up discussion regarding in- hospital that is inpatient hospice care and the patient was agreeable for that. After this discussion, her daughter came in and I communicated with her as well and she is also in agreement with the patient, so we have initiated Social Service consultation for inpatient hospice care services to be started as soon as possible, and once that is arranged, the patient will be transitioned, she will be discharged from regular medical care to hospice care and at that time she will no longer need ICU care and she can be transferred to regular room. Hospice Care will take over her management once transition happens and all those details were discussed with the patient and her family. Overall prognosis is poor. ELI/MODL Voice ID: [id number] Report ID: [id number] BELEM
[2024-01-11 12:28] VITALS: TEMP 97.7
[2024-01-11 13:47] VITALS: BP 130/59
== END 2024-01-11 13:38 | disposition hospice, inpatient (51) | DRG 871 ==
LOC: ER 03:07 → 3RD-ICU 06:01
PROVIDERS: ADMIT Internal Medicine; ATTEND Internal Medicine
PROC: 5A09557 Assistance with Respiratory Ventilation, Greater than 96 Consecutive Hours, Continuous Positive Airway Pressure (ICD-10-PCS; principal; 2024-01-05)
PROC: 02HV33Z Insertion of Infusion Device into Superior Vena Cava, Percutaneous Approach (ICD-10-PCS; 2024-01-07)
PROC: 3E0436Z Introduction of Nutritional Substance into Central Vein, Percutaneous Approach (ICD-10-PCS; 2024-01-07)
PROC: 5A0945A Assistance with Respiratory Ventilation, 24-96 Consecutive Hours, High Flow/Velocity Cannula (ICD-10-PCS; 2024-01-08)
PROC: 0T9B70Z Drainage of Bladder with Drainage Device, Via Natural or Artificial Opening (ICD-10-PCS; 2024-01-08)
DX: A41.02 Sepsis due to Methicillin resistant Staphylococcus aureus (principal); E43 Unspecified severe protein-calorie malnutrition; J18.9 Pneumonia, unspecified organism; J80 Acute respiratory distress syndrome; N17.9 Acute kidney failure, unspecified; R04.2 Hemoptysis; J44.0 Chronic obstructive pulmonary disease with (acute) lower respiratory infection; R65.20 Severe sepsis without septic shock; I12.9 Hypertensive chronic kidney disease with stage 1 through stage 4 chronic kidney disease, or unspecified chronic kidney disease; N18.32 Chronic kidney disease, stage 3b; D63.1 Anemia in chronic kidney disease; E78.00 Pure hypercholesterolemia, unspecified; E86.9 Volume depletion, unspecified; E03.9 Hypothyroidism, unspecified; E87.6 Hypokalemia; M19.09 Primary osteoarthritis, other specified site; D69.6 Thrombocytopenia, unspecified; K21.9 Gastro-esophageal reflux disease without esophagitis; R73.9 Hyperglycemia, unspecified; T38.0X5A Adverse effect of glucocorticoids and synthetic analogues, initial encounter; Z66 Do not resuscitate; Z51.5 Encounter for palliative care; Z88.5 Allergy status to narcotic agent; Z88.1 Allergy status to other antibiotic agents; Z68.22 Body mass index [BMI] 22.0-22.9, adult; Z11.52 Encounter for screening for COVID-19; Z90.49 Acquired absence of other specified parts of digestive tract; Z98.51 Tubal ligation status; Z79.82 Long term (current) use of aspirin; Z79.890 Hormone replacement therapy; Z79.899 Other long term (current) drug therapy; Z87.891 Personal history of nicotine dependence
CPT/HCPCS: 36415; 36569; 71045; 76700; 80048; 80053; 80202; 82947; 83605; 83735; 83880; 84484; 85025; 85610; 85730; 87040; 87804; 87811; 93005; 94660; 96365; 96367; 99285; J0692; J0696; J1650; J1815; J1940; J2405; J2920; J3480; J7030; J7050; J7613; J7644

== ENCOUNTER 2024-01-11 13:59 | Inpatient (IN) | payer OTHER ==
[2024-01-11] MEDS ORDERED: BISACODYL 10 MG RECTAL SUPP PR PRN (14:07)
[2024-01-11 14:38] VITALS: BMI 24.8
[2024-01-11] MEDS ORDERED: LORazepam 2 MG/ML VIAL ONE ×3 (15:20→23:59)
[2024-01-11] MEDS ORDERED: HYDROMORPHONE HCL 1 MG/ML INJ ONE ×3 (15:21→23:06)
[2024-01-11] MEDS: LORazepam 2 MG/ML VIAL IV SCH (15:22)
[2024-01-11] MEDS: HYDROMORPHONE HCL 1 MG/ML INJ IV SCH (15:22)
[2024-01-11] MEDS: SCOPOLAMINE HYDROBROMIDE PATCH TD SCH (15:22)
[2024-01-11] MEDS ORDERED: MORPHINE 2 MG/ML SYR ONE ×2 (15:54→22:01)
[2024-01-11] MEDS: MORPHINE 2 MG/ML SYR IV SCH (15:56)
[2024-01-12] MEDS ORDERED: MORPHINE 2 MG/ML SYR ONE ×2 (01:01→04:13)
[2024-01-12 01:09] VITALS: O2SAT 92
[2024-01-12] MEDS ORDERED: LORazepam 2 MG/ML VIAL ONE ×2 (06:28→08:51)
[2024-01-12 07:51] VITALS: BP 112/43
[2024-01-12] MEDS: HYDROMORPHONE HCL 2 MG/ML inj IV SCH (08:15)
[2024-01-12] MEDS: LORazepam 2 MG/ML VIAL IV SCH (08:52)
[2024-01-12] MEDS ORDERED: HYDROMORPHONE HCL 2 MG/ML inj ONE (10:19)
--- NOTE | 2024-01-13 21:28 | P.HP ---
Patient History Date of Service: 01/13/24 Reason for admission: RESPIRATORY FAILURE History of Present Illness: DR. ROONEY CONSULTED [facility] FOR THIS PATIENT WITH PNEUMONIA AND RESPIRATORY FAILURE. RAHEL IS 83 YEARS OLD WHO GOT SUDDENLY ILL AND FAILED TO RECOVER DESPITE EFFORTS OF DR. ROONEY AND DR. FREEMAN. THEY CALLED IN HOSPICE THEY DEEMED SHE IS TERMINAL. I SAW HER ON SATURDAY AM AND SHE WAS ALREADY SEMICOMATOSE WITH SEVERE DISTRESS ON BIPAP. FAMILY WANTED HER COMFORTABLE ONLY SO WE PLACED HER ON HOSPICE WE CAN GIVE HER COMFORT MEDICINES. Allergies codeine Adverse Reaction (Verified 06/18/18 03:10) Shortness of breath Home medications list reviewed: Yes Home Medications: Ascorbic Acid [Vitamin C*] 1,000 mg PO DAILY 06/18/18 Cholecalciferol (Vitamin D3) [Vitamin D 1000 Iu Tab*] 1,000 unit PO DAILY 06/18/18 Levothyroxine Sodium 75 mcg PO DAILY 06/18/18 Metoprolol Succinate 25 mg PO DAILY 06/18/18 Simvastatin 20 mg PO DAILY 06/18/18 Amiodarone HCl [Cordarone Tab] 200 mg PO BID 01/05/24 Amitriptyline [Elavil] 25 mg PO BEDTIME 01/05/24 Amlodipine [Norvasc] 5 mg PO DAILY 01/05/24 Apixaban [Eliquis] 2.5 mg PO BID 01/05/24 - Past Medical/Surgical History Has patient received pneumonia vaccine in the past: Yes Diabetic: No -: HTN -: hypothyroidism -: hyperlipidemia -: jerod -: tubal ligation - Family History Mother -: Hypertension, Cancer Father -: Hypertension, Other (see notes) Notes: leukemia Brother -: Diabetes - Social History Smoking Status: Never smoker Alcohol use: No CD- Drugs: No Caffeine use: Yes Review of Systems is unable to be obtained Physical Examination - Vital Signs Blood Pressure: 112/43 Pulse: 72 Respirations: 14 Pulse Ox (%): 96 - Physical Exam General: Moderate distress, Severe distress, Unresponsive HEENT: Atraumatic, PERRLA, Mucous membr. moist/pink, EOMI, Sclerae nonicteric Neck: Supple, 2+ carotid pulse no bruit, No LAD, Without JVD or thyroid abnormality Respiratory: Diminished (RAPID. SHALLOW.) Cardiovascular: Regular rate/rhythm, Normal S1 S2 Gastrointestinal: Normal bowel sounds, No tenderness Musculoskeletal: No tenderness Integumentary: No rashes Neurological: Normal gait, Normal speech, Normal strength at 5/5 x4 extr, Normal tone, Normal affect Lymphatics: No axilla or inguinal lymphadenopathy Assessment and Plan - Problems (Diagnosis) (1) Respiratory failure Status: Acute Plan: SECONDARY TO PNEUMONIA I AGREE WITH HOSPICE CARE WE STARTED COMFORT MEDS. DISCUSSED WITH FAMILY IN DETAIL. - Advance Directives Does patient have a Living Will: No Does patient have a Durable POA for Healthcare: Yes
--- NOTE | 2024-01-13 21:30 | P.DS ---
Admission Date: 01/11/24 Discharge Date: 01/13/24 Disposition: Discharge Condition: Reason for Admission: RESPIRATORY FAILURE - Problems (1) Respiratory failure Status: Acute Brief History of Present Illness: DR. ROONEY CONSULTED [facility] FOR THIS PATIENT WITH PNEUMONIA AND RESPIRATORY FAILURE. RAHEL IS 83 YEARS OLD WHO GOT SUDDENLY ILL AND FAILED TO RECOVER DESPITE EFFORTS OF DR. ROONEY AND DR. FREEMAN. THEY CALLED IN HOSPICE THEY DEEMED SHE IS TERMINAL. I SAW HER ON SATURDAY AM AND SHE WAS ALREADY SEMICOMATOSE WITH SEVERE DISTRESS ON BIPAP. FAMILY WANTED HER COMFORTABLE ONLY SO WE PLACED HER ON HOSPICE WE CAN GIVE HER COMFORT MEDICINES. Hospital Course: RAHEL IS A 83 YRS OLD LADY WITH A FIB. SHE WAS PLACED ON HOSPICE FOR COMFORT CARE BY DR. ROONEY. SHE EXPECTED WITHIN A DAY. SHE WAS KEPT COMFORTABLE USING DILAUDID AND ATIVAN. Vital Signs/Physical Exam: Temp Pulse Resp BP Pulse Ox 72 14 112/43 L 96 01/13/24 21:28 01/13/24 21:28 01/13/24 21:28 01/13/24 21:28 Home Medications: Ascorbic Acid [Vitamin C*] 1,000 mg PO DAILY 06/18/18 Cholecalciferol (Vitamin D3) [Vitamin D 1000 Iu Tab*] 1,000 unit PO DAILY 06/18/18 Levothyroxine Sodium 75 mcg PO DAILY 06/18/18 Metoprolol Succinate 25 mg PO DAILY 06/18/18 Simvastatin 20 mg PO DAILY 06/18/18 Amiodarone HCl [Cordarone Tab] 200 mg PO BID 01/05/24 Amitriptyline [Elavil] 25 mg PO BEDTIME 01/05/24 Amlodipine [Norvasc] 5 mg PO DAILY 01/05/24 Apixaban [Eliquis] 2.5 mg PO BID 01/05/24
== END 2024-01-12 18:50 | disposition expired | DRG 951 ==
LOC: 3RD-ICU 13:59 → 4TH 01-12 10:43
PROVIDERS: ADMIT Internal Medicine; ATTEND Internal Medicine
DX: Z51.5 Encounter for palliative care (principal)
CPT/HCPCS: 94660; J1170; J2270